=== PATIENT | female | born 2000 | race Caucasian/White ===

== ENCOUNTER → 2022-06-09 | Outpatient (CLI) | payer OTHER, SELFPAY ==
[2022-06-14 05:07] LABS: Chlamydia By Nucleic Acid AMP Negative (Negative)
[2022-06-14 14:06] LABS: Gonococcus By Nucleic Acid AMP Negative (Negative)
[2022-06-21 12:45] LABS: HPV Reflexed? NOT INDICATED
== END | disposition home or self-care (01) ==
PROVIDERS: PCP Family Medicine; Visit Provider Obstetrics & Gynecology
DX: Z34.90 Encounter for supervision of normal pregnancy, unspecified, unspecified trimester (principal)
CPT/HCPCS: 87086; 87491; 87591; 88175; G0145

== ENCOUNTER → 2022-07-10 | Outpatient (CLI) | payer OTHER, SELFPAY ==
[2022-07-10 12:57] LABS: Absolute Lymphocyte Count 2.44 X10^3/uL (0.83-4.51); Absolute Neutrophil Count 6.4 X10^3/uL (2.0-7.7); Basophil# 0.05 X10^3/uL; Basophil% 0.5 % (0-1); Hematocrit 35.8 % (37-47); Lymphocyte # 2.44 X10^3/ul (0.83-4.51); Lymphocyte % 25.3 % (19-41); Mean Corp Hgb Conc 33.5 g/dL (32-36); Mean Corpuscular Hgb 28.8 pg (27.0-32.0); Mean Corpuscular Volume 85.9 fL (81-99); Mean Platelet Vol. 9.6 fl (6.2-12.0); Monocyte# 0.66 X10^3/uL; Monocyte% 6.8 % (0-10); NRBC Flagged by Analyzer 0 % (0-5); Neutrophil # 6.35 X10^3/uL (2.7-7.7); Platelet Count 273 K/mm3 (150-450); RBC Distribution Width CV 12.8 % (11.6-14.6); RBC Distribution Width SD 39.5 fl (35.1-43.9); Red Blood Count 4.17 M/mm3 (4.2-5.4); White Blood Count 9.6 K/mm3 (4.4-11.0)
[2022-07-10 13:52] LABS: NATERA MAILED SPECIMEN
[2022-07-10 14:34] LABS: HIV - WCH Non-Reactive (Nonreactive); Hepatitis B Surface Antigen Non-Reactive (Nonreactive); Hepatitis C Antibody Non-Reactive (Nonreactive); Rubella IgG Reactive (Nonreactive); Syphilis Antibodies Non-reactive
== END | disposition home or self-care (01) ==
LOC: PAVLAB 12:38
PROVIDERS: PCP Family Medicine; Referring Provider Obstetrics & Gynecology; Visit Provider Obstetrics & Gynecology
DX: Z34.81 Encounter for supervision of other normal pregnancy, first trimester (principal)
CPT/HCPCS: 36415; 85025; 86703; 86762; 86780; 86803; 86850; 86900; 86901; 87340

== ENCOUNTER → 2022-10-18 | Outpatient (CLI) | payer OTHER, SELFPAY ==
[2022-10-18 14:45] LABS: Absolute Lymphocyte Count 1.83 X10^3/uL (0.83-4.51); Absolute Neutrophil Count 11.3 X10^3/uL (2.0-7.7); Basophil# 0.07 X10^3/uL; Basophil% 0.5 % (0-1); Eosinophil# 0.11 X10^3/uL; Eosinophils% 0.8 % (0-5); Hematocrit 35.2 % (37-47); Hemoglobin 11.5 g/dL (12.0-15.0); Lymphocyte # 1.83 X10^3/ul (0.83-4.51); Lymphocyte % 12.7 % (19-41); Mean Corp Hgb Conc 32.7 g/dL (32-36); Mean Corpuscular Hgb 28.8 pg (27.0-32.0); Mean Corpuscular Volume 88.2 fL (81-99); Mean Platelet Vol. 9.7 fl (6.2-12.0); Monocyte# 0.87 X10^3/uL; NRBC Flagged by Analyzer 0 % (0-5); Neutrophil # 11.26 X10^3/uL (2.7-7.7); Neutrophil % 77.9 % (47-70); Platelet Count 222 K/mm3 (150-450); RBC Distribution Width CV 12.3 % (11.6-14.6); RBC Distribution Width SD 39.5 fl (35.1-43.9); Red Blood Count 3.99 M/mm3 (4.2-5.4); White Blood Count 14.4 K/mm3 (4.4-11.0)
[2022-10-18 15:25] LABS: Glucose Challenge Gest 1H 50g 134 mg/dL (70-140)
[2022-10-18 15:46] LABS: HIV - WCH Non-Reactive (Nonreactive); Syphilis Antibodies Non-reactive
== END | disposition home or self-care (01) ==
LOC: PAVLAB 14:13
PROVIDERS: PCP Family Medicine; Referring Provider Obstetrics & Gynecology; Visit Provider Obstetrics & Gynecology
DX: Z13.1 Encounter for screening for diabetes mellitus (principal); Z3A.21 21 weeks gestation of pregnancy
CPT/HCPCS: 36415; 82950; 85025; 86703; 86780

== ENCOUNTER → 2022-12-14 | Outpatient (CLI) | payer OTHER, SELFPAY | END | disposition home or self-care (01) | LOC: LABSPEC 15:12 | PROVIDERS: PCP Family Medicine; Referring Provider Obstetrics & Gynecology; Visit Provider Obstetrics & Gynecology | DX: Z34.00 Encounter for supervision of normal first pregnancy, unspecified trimester (principal) | CPT/HCPCS: 87077; 87081; 87186 ==

== ENCOUNTER 2023-01-17 00:35 | Inpatient (IN) | payer OTHER, SELFPAY ==
[2023-01-17] VITALS (46 sets, daily range): BP systolic 88–126; BP diastolic 49–84; PULSE 67–153; TEMP 36.4–37.6; O2SAT 89–100; BMI 27.8
[2023-01-17 00:34] LABS: ROM Internal Control Test YES-OK TO RESULT pt. (Internal QC); ROM Patient Test POSITIVE (Negative)
[2023-01-17 00:35] LABS: Record Kit Lot#, ROM+ K1374
[2023-01-17] MEDS: Lactated Ringers 1,000 ML 50 ML IV (00:45)
[2023-01-17 01:06] LABS: Absolute Lymphocyte Count 2.69 X10^3/uL (0.83-4.51); Absolute Neutrophil Count 9.2 X10^3/uL (2.0-7.7); Basophil# 0.08 X10^3/uL; Basophil% 0.6 % (0-1); Eosinophil# 0.18 X10^3/uL; Eosinophils% 1.3 % (0-5); Hematocrit 32.1 % (37-47); Hemoglobin 10.1 g/dL (12.0-15.0); Lymphocyte # 2.69 X10^3/ul (0.83-4.51); Lymphocyte % 19.8 % (19-41); Mean Corp Hgb Conc 31.5 g/dL (32-36); Mean Corpuscular Hgb 25.9 pg (27.0-32.0); Mean Corpuscular Volume 82.3 fL (81-99); Mean Platelet Vol. 10.4 fl (6.2-12.0); Monocyte# 1.14 X10^3/uL; Monocyte% 8.4 % (0-10); NRBC Flagged by Analyzer 0 % (0-5); Neutrophil # 9.21 X10^3/uL (2.7-7.7); Neutrophil % 67.8 % (47-70); Platelet Count 260 K/mm3 (150-450); RBC Distribution Width CV 13.2 % (11.6-14.6); RBC Distribution Width SD 39.4 fl (35.1-43.9); White Blood Count 13.6 K/mm3 (4.4-11.0)
[2023-01-17 02:04] LABS: Syphilis Antibodies Non-reactive
--- NOTE | 2023-01-17 04:56 | HP.PCM.OB_ITS ---
HPI - General General Date of Admission: 01/17/23 Date of Service: 01/17/23 HPI Narrative MAYELA HUDDLESTON, is a 22 F 40.5 weeks who presents for SROM at 2300 on 01/16/23 for clear fluid. Maternal Data Information JENNYFER Calculator Estimated Delivery Date Method Current WG Current Estimate 01/12/23 LMP (Certain) 40w 5d Other Estimates 01/07/23 Ultrasound #1 41w 3d Final JENNYFER: 01/12/23 Final JENNYFER Source: US >20 weeks Gestational age: 40.5 weeks PFSH PFSH Medical History no medical history Home Medications multivitamin no.47-iron fum 27 mg-folate no.1 1 mg-dha 300 mg capsule (PNV-DHA) cap PO 06/01/22 [History Last Taken 01/01/23] Allergy/AdvReac Type Severity Reaction Status Date / Time No Known Allergies Allergy Verified 01/17/23 00:06 Family History Aunt Breast cancer, Onset Age: 40 Maternal Ovarian cancer, Onset Age: 50 Paternal Surgical History no surgical history Social History adopted: No household members: spouse housing: house current occupational status: employed 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 current occupational exposures/hazards: No pets and animals: No history of recent travel: Yes ([place]) out of state: Yes out of country: No sexually active: Yes Smoking Status: Never smoker alcohol intake: former details: socially a few times a year- not while substance use type: does not use well-balanced diet: daily or most days caffeine: No eating out: 1-3 times/week during the past year weight has: remained stable what type of physical activity do you participate in: other details: crossfit frequency: 3-4 times per week duration: 45-60 minutes/day delmi/temple: Faith seatbelt use: sometimes do you feel safe at home: Yes additional social history: Travis- [employer] in [employer] History 1 Elective abortions Hx Para 0 Spontaneous abortions Hx # Term Pregnancies Ectopic pregnancies Hx # Pregnancies Multiple births # of living children Visit Details Expected Delivery Route/Plan Labor Preferences- CB/BF classes: completed labor support person: Travis labor intervention preferences: [] pain management options preferred: epidural cut cord/dad catch: no : yes PP control planned: discussed discussed possible routes of delivery and associated risks: [] special requests: [] Plans Covid status: discussed Flu vaccine: discussed Tdap vaccine: Rhogam: NA LARC form signed: yes movement and labor precautions reviewed. Problem list reviewed and updated with the most current plan of care details and appropriate orders placed. Relevant counseling for the gestational age provided. Continue routine care and follow up unless otherwise noted in visit notes/problem list details OB Flowsheet Initial Weight: Not Recorded Date -?-?-?-?-?-?-?-?-?-?-?-?- EGA Weight BP Urine Prot -?-?-?-?-?-?-?-?-?-?-?-?- Glucose FHR FuHt Pres Dilation -?-?-?-?-?-?-?-?-?-?-?-?- Effaced St Visit Note 06/09/22 -?-?-?-?-?-?-?-?-?-?-?-?- 9w 0d 125 lb 8 oz 117/77 -?-?-?-?-?-?-?-?-?-?-?-?- 170 -?-?-?-?-?-?-?-?-?-?-?-?- JV- single live IUP measuring 9weeks 5 days. (within 7 days of LMP) 07/07/22 -?-?-?-?-?-?-?-?-?-?-?-?- 13w 0d 128 lb 113/63 Negative -?-?-?-?-?-?-?-?-?-?-?-?- Negative 165 -?-?-?-?-?-?-?-?-?-?-?-?- JV- no complaint s today. labs to be drawn today. 08/03/22 -?-?-?-?-?--?-?-?-?-?-?-?- 16w 6d 134 lb 116/64 Negative -?-?-?-?-?-?-?-?-?-?-?-?- Negative 153 -?-?-?-?-?-?-?-?-?-?-?-?- MH-no VB, crampi ng. Normal PN labs and genetics. 09/01/22 -?-?-?-?-?-?-?-?-?-?-?-?- 21w 0d 139 lb 6 oz 119/67 Nega tive -?-?-?-?-?-?-?-?-?-?-?-?- Negative 146 21 -?-?-?-?-?-?-?-?-?-?-?-?- LC- no vb/crampi ng. normal anatomy. 09/29/22 -?-?-?-?-?-?-?-?-?-?-?-?- 25w 0d 144 lb 6 oz 97/61 Nega tive -?-?-?-?-?-?-?-?-?-?-?-?- Negative 140 25 -?-?-?-?-?-?-?-?-?-?-?-?- Sm- no vb lof go od fm no regular ctx 10/18/22 -?-?-?-?-?-?-?-?-?-?-?-?- 27w 5d 148 lb 107/67 Negative -?-?-?-?-?-?-?-?-?-?-?-?- Negative 135 27 -?-?-?-?-?-?-?-?-?-?-?-?- JV- gct pending from today. no anemia. She is experiencing restless legs. 11/03/22 -?-?-?-?-?-?-?-?-?-?-?-?- 30w 0d 148 lb 6 oz 114/62 Nega tive -?-?-?-?-?-?-?-?-?-?-?-?- Negative 140 30 -?-?-?-?-?-?-?-?-?-?-?-?- JV- normal GCT. no complaints. TDAP today. 11/16/22 -?-?-?-?-?-?-?-?-?-?-?-?- 31w 6d 151 lb 2 oz 98/78 Nega tive -?-?-?-?-?-?-?-?-?-?-?-?- Negative 141 31 -?-?-?-?-?-?-?-?-?-?-?-?- MH-No VB, LOF. G ood FM. Denies concerns 11/30/22 -?-?-?-?-?-?-?-?-?-?-?-?- 33w 6d 156 lb 8 oz 123/66 Nega tive -?-?-?-?-?-?-?-?-?-?-?-?- Negative 140 34 Cephalic -?-?-?-?-?-?-?-?-?-?-?-?- Sm- no vb lof go od fm no regular ctx 12/14/22 -?-?-?-?-?-?-?-?-?-?-?-?- 35w 6d 158 lb 6 oz 116/67 Nega tive -?-?-?-?-?-?-?-?-?-?-?-?- Negative 144 35 Cephalic -?-?-?-?-?-?-?-?-?-?-?-?- JV- no lof, vagi nal bleeding, or dec fm. GBS collected. no complaints. 12/21/22 -?-?-?-?-?-?-?-?-?-?-?-?- 36w 6d 159 lb 2 oz 101/58 -?-?-?-?-?-?-?-?-?-?-?-?- 140 37 Cephalic 1 -?-?-?-?-?-?-?-?-?-?-?-?- 20 -3 SM- no vb lof good fm no regular ctx 12/28/22 -?-?-?-?-?-?-?-?-?-?-?-?- 37w 6d 161 lb 6 oz 110/65 Nega tive -?-?-?-?-?-?-?-?-?-?-?-?- Negative 130 39 Cephalic 1 -?-?-?-?-?-?-?-?-?-?-?-?- 50 -2 JV- no lof , vaginal bleeding, or dec fm. labor precautions discussed. 01/05/23 -?-?-?-?-?-?-?-?-?-?-?-?- 39w 0d 164 lb 8 oz 112/67 -?-?-?-?-?-?-?-?-?-?-?-?- 130 39 Cephalic 1.5 -?-?-?-?-?-?--?-?-?-?-?-?- 60 -2 SM- no vb of good fm no regular ctx 01/11/23 -?-?-?-?-?-?-?-?-?-?-?-?- 39w 6d 166 lb 4 oz 110/67 Nega tive -?-?-?-?-?-?-?-?-?-?-?-?- Negative 145 39 Cephalic 2 -?-?-?-?-?-?-?-?-?-?-?-?- 70 -2 JV- IOL se t up for next week. no complaints today. NST FHR Rate Baby A Baseline: 135 Variability:: Moderate Accelerations:: 15 x 15 Decelerations:: None NST Reactive:: Yes FHR Category:: Category I Uterine Activity:: 4-5 minutes ROS Constitutional Constitutional: Denies change in weight, fatigue, fever(s), headache(s), poor appetite or weakness Eyes Eyes: Denies blurry vision, change in vision, floaters, seeing flashes or spots in vision ENT HEENT: Denies dizziness, headache(s), loss taste/smell or sore throat Cardiovascular Cardiovascular: Denies chest pain, dizziness, dyspnea, irregular heart rhythm, lightheadedness, palpitations or rapid heart rate Respiratory/Chest Respiratory/Chest: Denies change in mental status, chest tightness, cough, dyspnea or breast pain Gastrointestinal Gastrointestinal: Denies anorexia, chewing difficulty, constipation, diarrhea or weight changes Genitourinary Genitourinary: Denies difficulty urinating, dysuria, flank pain, genital pain, urinary frequency or urinary urgency Musculoskeletal Musculoskeletal: Denies back pain, difficulty walking, extremity pain, joint pain, muscle cramps or muscle weakness Integumentary Integumentary: Denies lesions or unusual bruising Neurologic Neurologic: Denies abnormal movements, abnormal speech, dizziness, numbness, seizure-like activity, syncope or weakness Psychiatric Psychiatric: Denies behavioral changes, change in appetite, confusion, depression, homicidal ideation, suicidal ideation or suicidal thoughts Endocrine Endocrinology: Denies excessive sweating, polydipsia or polyuria Hematologic/Lymphatic Hematologic/Lymphatic: Denies anemia Allergic/Immunologic Allergic/Immunologic: Denies itchy eyes, lip swelling, throat swelling, tongue swelling or wheezing Vital Signs Vital Signs Vital Signs: 01/17/23 00:11 01/17/23 00:11 01/17/23 00:11 Temperature Temperature Source Temporal Pulse Rate 95 Blood Pressure 121/72 H BP Systolic 121 BP Diastolic 72 Pulse Ox 01/17/23 00:11 01/17/23 00:11 01/17/23 01:55 Temperature 98.3 F Temperature Source Temporal Pulse Rate Blood Pressure BP Systolic BP Diastolic Pulse Ox 97 01/17/23 01:55 01/17/23 01:55 01/17/23 01:55 Temperature 98.1 F Temperature Source Pulse Rate Blood Pressure 126/67 H BP Systolic 126 BP Diastolic 67 Pulse Ox 98 01/17/23 03:15 01/17/23 03:15 01/17/23 03:15 Temperature Temperature Source Temporal Pulse Rate 90 Blood Pressure 111/66 BP Systolic 111 BP Diastolic 66 Pulse Ox 01/17/23 03:15 01/17/23 04:12 01/17/23 04:12 Temperature 97.6 F L Temperature Source Pulse Rate 82 Blood Pressure 109/72 BP Systolic 109 BP Diastolic 72 Pulse Ox 01/17/23 04:12 01/17/23 04:12 Temperature 97.6 F L Temperature Source Temporal Pulse Rate Blood Pressure BP Systolic BP Diastolic Pulse Ox Weight Weight: 162 lb 0.636 oz Body Mass Index (BMI) 27.8 Physical Exam Const alert, oriented x3 and no apparent distress General Appearance: cooperative Orientation / Consciousness: awake HEENT normocephalic Neck full ROM Lymph Lymphatic: no lymphadenopathy noted Chest inspection of chest normal Resp normal respiratory effort and normal air movement Effort and Inspection: able to speak in complete sentences and symmetric chest movement GI soft to palpation and non-tender Inspection: gravid Palpation: soft; Negative for tender external exam normal Manual OB Exam: dilated 4, effaced 60 and station -2 Back/Spine normal to inspection Extremity normal to inspection and full ROM Skin no rashes or lesions noted Psych mental status grossly normal Appearance: grossly normal Speech: normal speech Labs Labs Labs: Blood Type O POSITIVE Antibody Screen NEGATIVE Hct 32.1 % (37-47) L Hgb 10.1 g/dL (12.0-15.0) L Syphilis Total Ab Non-reactive Rubella IgG Antibody Reactive (Nonreactive) Hep Bs Antigen Non-Reactive (Nonreactive) Chlamydia DNA (SARAH) Negative (Negative) Neisseria gonorrhoeae DNA (SARAH) Negative (Negative) HIV 1&2 Antibody Non-Reactive (Nonreactive) Glucose 1 Hr 50 gm 134 mg/dL (70-140) Assessment & Plan (1) SROM (spontaneous rupture of membranes): (2) Positive GBS test: COMMENT: PCN in labor (3) Supervision of normal first : COMMENT: PRR JENNYFER 01/12/23 boy Emiliano Travis (4) : QUALIFIERS: Weeks of gestation: 39 weeks Qualified Code(s): Z3A.39 - 39 weeks gestation of COMMENT: anatomy-nl, NIPT low risk, Neg Carrier testing afp delined. PLAN: Plan Patient presents IAL, plan expectant management for , pitocin/AROM PRN if needed. Pain management: plans epidural. GBS positive plan IV PCN. Management of any complications: none I have reviewed the [facility] and made any clinically relevant updates. Charges/Coding Multi Select Codes Urinary/Genital Urinary/Genital CPT Codes: No Charge
[2023-01-17] MEDS: Penicillin G 3,000,000 Units 50 ML 100 UNITS IV (05:21)
[2023-01-17] MEDS: Oxytocin 15 Units/NS 250ml 15 UNITS/250 ML IV.SOLN 2 UNITS IV (07:45)
--- NOTE | 2023-01-17 08:06 | PCM.PN.BLA ---
Progress Note pt is sitting up in bed without complaint. nurses report that she has a forebag present and she consents to rupture. current tracing: FHT: Moderate variability reactive no decelerations category I tracing [place]: irregular Contractions cx: 3/70/-2, forebag of water ruptured with clear fluid return A/P: srom gbs pos- has received pcn starting pitocin now- pt requesting epidural soon.
[2023-01-17] MEDS: Penicillin G 3,000,000 Units 50 ML 50 UNITS IV ×3 (09:29→17:13)
[2023-01-17] MEDS: LACTATED RINGERS 500 ML 999 ML IV ×2 (12:15→16:41)
[2023-01-17] MEDS: fentaNYL-bupivacaine (epidural) 100 ML BAG EPIDURAL ×2 (13:25→17:36)
[2023-01-17] MEDS: Lactated Ringers 1,000 ML 200 ML IV (15:56)
[2023-01-17] MEDS: Ondansetron 4 MG/2 ML Vial IV (18:28)
--- NOTE | 2023-01-17 21:33 | EX.PCM.OBRPT ---
Assessment & Plan (1) SROM (spontaneous rupture of membranes): (2) Positive GBS test: COMMENT: PCN in labor (3) Supervision of normal first : COMMENT: PRR JENNYFER 01/12/23 boy Emiliano Travis (4) : QUALIFIERS: Weeks of gestation: 39 weeks Qualified Code(s): Z3A.39 - 39 weeks gestation of COMMENT: anatomy-nl, NIPT low risk, Neg Carrier testing afp delined. Maternal Data Information JENNYFER Calculator Estimated Delivery Date Method Current WG Current Estimate 01/12/23 LMP (Certain) 40w 5d Other Estimates 01/07/23 Ultrasound #1 41w 3d Final JENNYFER: 01/17/23 Final JENNYFER Source: LMP Gestational age: 40 weeks 5 days Vaginal Delivery Maternal Presentation Maternal Presentation: Spontaneous Rupture of Membranes Type of Induction: Pitocin Operative Information Date of Procedure: 01/17/23 Pre-Operative Diagnosis: 22 y/o @ 40 weeks 5 days, SROM Post-Operative Diagnosis: 22 y/o @ 40 weeks 5 days, SROM Type of Anesthesia: Epidural Estimated Blood Loss: 300cc Findings Description of Procedure: Patient began pushing and delivered the head in the CRISTINA presentation. The head was delivered atraumatically. The anterior and posterior shoulders delivered without complication followed by the rest of the and the infant was placed on the maternal abdomen. Delayed cord clamping was employed for approximately 60 seconds. Cord was clamped and cut and gentle traction was applied to the cord and the placenta delivered spontaneously immediately following it was noted to be intact with three-vessel cord. The perineum and vagina were inspected and noted to have a 2nd degree perineal laceration. The laceration was repaired using a 3-0 vicryl. EBL was 300cc. Patient and tolerated delivery well. baby boy Emiliano Presentation: CRISTINA Amniotic Membrane Rupture Type: Spontaneous Amniotic Fluid Description: Clear Placenta Disposition: [facility] Cord Vessel Description: 3 Vessels Cord Entanglement: None Infant A Gender: Male (1 minute): 8 (5 minute): 9 Delayed Cord Clamping: Yes Post Vaginal Delivery Medications Given After Delivery: IV Pitocin Episiotomy Description: None Laceration: 2nd degree Complication Complications: None Multi Select Codes Urinary/Genital Urinary/Genital CPT Codes: 20352 Vaginal Delivery [facility]
--- NOTE | 2023-01-17 21:36 | DCINST_ITS ---
Discharge Instructions Diet Discharge Diet: No restrictions Activity Discharge Activity: Return to Normal Activity, May Not Drive (while taking narcotic pain medications.) and May Shower May resume sexual activity in: 4-6 weeks Dressing / Incision Call your doctor if your incision/area has: Continuous Slow Oozing, Sudden Increased Bleeding, Increased Pain/ Swelling, Increased Redness and Foul Smelling Discharge Follow Up Care Please Follow Up With: Colette Berger, DO When: Call [phone] to make an appointment with your doctor in 6 weeks. If you had elevated blood pressure or 4th degree laceration, you will need to be seen in 2 weeks. Test Results: Test results from this visit will be discussed in further detail at your follow- up appointment, if applicable. Discharge Plan Admission Admit Date/Time: 01/17/23 00:35 Attending Provider: Colette Berger Primary Care Provider: Kaylee Iyer Discharge Orders/Prescriptions Prescriptions: No Action PNV-DHA 27 mg iron-1 mg -300 mg capsule PO Referrals / Follow Up: Kaylee Iyer MD [Primary Care Provider] -
[2023-01-17] MEDS: Oxytocin 15 Units/NS 250ml 15 UNITS/250 ML IV.SOLN 83 UNITS IV (21:50)
[2023-01-17] MEDS: Naproxen 500 MG Tablet PO (23:24)
--- NOTE | 2023-01-18 00:29 | NURSING ---
This RN took over pt care from Suzi CARTER
[2023-01-18] MEDS: 0.9% Saline Lock 10 ML Syringe IV (00:56)
[2023-01-18 03:35] VITALS: BP 121/49; PULSE 61; RESP 16; TEMP 36.4
--- NOTE | 2023-01-18 07:51 | PCM.PN.OB ---
Subjective Subjective Patient doing well without complaints. Tolerating PO. Ambulating and voiding without difficulty. Feeding well. Denies chest pain, shortness of breath, calf pain/swelling, fevers, chills, lightheadedness. Objective Data Objective Data Vital Signs: Vital Signs Temp Pulse Resp BP Pulse Ox 97.6 F L 61 16 121/49 H 100 01/18/23 03:35 01/18/23 03:35 01/18/23 03:35 01/18/23 03:35 01/17/23 17:18 Weight: 162 lb 0.636 oz Body Mass Index (BMI) 27.8 Intake & Output: Intake and Output for Last 24 Hours 01/16/23 01/17/23 01/18/23 23:59 23:59 23:59 Intake Total 3555.00 / 3555.00 250 / 250 Output Total 302 / 302 300 / 300 Balance 3253.00 / 3253.00 -50 / -50 Lab / Micro Data 01/17/23 00:04 Physical Exam Const alert and oriented x3 HEENT normocephalic Eyes PERRL Neck full ROM Resp normal respiratory effort GI soft to palpation GI Narrative: FF below U Assessment & Plan (1) Spontaneous vaginal delivery: COMMENT: 01/17/23 Melvin FUENTES PLAN: Plan s/p PPD # 1 1. routine post delivery care 2. breast feeding- support given 3. rh positive 4. rubella immune
[2023-01-18 08:00] VITALS: BP 98/62; PULSE 71; RESP 16; TEMP 36.6
[2023-01-18] MEDS: Naproxen 500 MG Tablet PO (10:45)
[2023-01-18 12:00] VITALS: BP 95/56; PULSE 90; TEMP 36.8
[2023-01-18] MEDS: Benzocaine/Lanolin/Aloe Vera 1 SPRAY EACH TOPICAL (14:50)
[2023-01-18] MEDS: Senna/Docusate Sodium 1 Tablet PO (15:28)
[2023-01-18 18:00] VITALS: BP 104/66; PULSE 83; RESP 16; TEMP 36.6
[2023-01-18 20:57] VITALS: BP 102/49; PULSE 75; RESP 16
[2023-01-19 01:45] VITALS: BP 103/63; PULSE 87; RESP 18; TEMP 36.7
[2023-01-19 08:34] VITALS: BP 105/70; PULSE 74; RESP 16; TEMP 36.4; O2SAT 98
[2023-01-19] MEDS: Senna/Docusate Sodium 1 Tablet PO (08:46)
--- NOTE | 2023-01-19 09:24 | PCM.PN.OB ---
Subjective Subjective Patient doing well without complaints. Tolerating PO. Ambulating and voiding without difficulty. Feeding well. Denies chest pain, shortness of breath, calf pain/swelling, fevers, chills, lightheadedness. Objective Data Objective Data Vital Signs: Vital Signs Temp Pulse Resp BP Pulse Ox O2 Del Method 97.6 F L 74 16 105/70 98 Room Air 01/19/23 08:34 01/19/23 08:34 01/19/23 08:34 01/19/23 08:34 01/19/23 08:34 01/19/23 08:34 Oxygen Delivery Method Room Air Weight: 162 lb 0.636 oz Body Mass Index (BMI) 27.8 Intake & Output: Intake and Output for Last 24 Hours 01/17/23 01/18/23 01/19/23 23:59 23:59 23:59 Intake Total 3555.00 / 3555.00 250 / 250 Output Total 302 / 302 500 / 500 Balance 3253.00 / 3253.00 -250 / -250 Lab / Micro Data 01/17/23 00:04 Physical Exam Const alert and no apparent distress Chest inspection of chest normal Nipple/Areola: nipples/areola normal Resp normal respiratory effort, normal air movement, no retractions and no use of accessory muscles Cardio regular rate GI normal to inspection, nondistended, normoactive bowel sounds GI Narrative: fundus firn, 1 below u, no clots. normal lochia Extremity normal to inspection, no calf tenderness and no pedal edema Psych mental status grossly normal Assessment & Plan (1) Spontaneous vaginal delivery: COMMENT: 01/17/23 Melvin FUENTES
[2023-01-19 14:10] VITALS: BP 119/73; PULSE 83; RESP 16; TEMP 36.2
== END 2023-01-19 14:36 | disposition home or self-care (01) | DRG 807 ==
LOC: WPOUT 00:36 → WP 00:36
PROVIDERS: Admitting Provider Advanced Practice Midwife; PCP Family Medicine; Referring Provider Advanced Practice Midwife; Visit Provider Obstetrics & Gynecology
DX: O70.1 Second degree perineal laceration during delivery (principal); Z37.0 Single live birth; B95.1 Streptococcus, group B, as the cause of diseases classified elsewhere; O99.824 Streptococcus B carrier state complicating childbirth; Z3A.40 40 weeks gestation of pregnancy
CPT/HCPCS: 59025; 59050; 84112; 85025; 86780; 86850; 86900; 86901; 99221; J7120; A4216; G0378; J2405

== ENCOUNTER 2023-03-10 08:35 | Outpatient (CLI) | payer OTHER, SELFPAY | END 2023-03-10 09:06 | disposition home or self-care (01) | LOC: WPOUT 08:42 → WP 08:43 | PROVIDERS: PCP Family Medicine; Referring Provider Nurse Practitioner Women's Health; Visit Provider Nurse Practitioner Women's Health | DX: O91.22 Nonpurulent mastitis associated with the puerperium (principal) | CPT/HCPCS: 96158 ==

== ENCOUNTER → 2024-03-17 | Outpatient (CLI) | payer OTHER, SELFPAY ==
[2024-03-17 12:25] LABS: Absolute Lymphocyte Count 2.32 X10^3/uL (0.83-4.51); Absolute Neutrophil Count 6.6 X10^3/uL (2.0-7.7); Basophil# 0.04 X10^3/uL; Basophil% 0.4 % (0-1); Eosinophil# 0.08 X10^3/uL; Eosinophils% 0.8 % (0-5); Hematocrit 38.3 % (37-47); Hemoglobin 12.5 g/dL (12.0-15.0); Lymphocyte # 2.32 X10^3/ul (0.83-4.51); Mean Corp Hgb Conc 32.6 g/dL (32-36); Mean Corpuscular Hgb 27.8 pg (27.0-32.0); Mean Corpuscular Volume 85.1 fL (81-99); Mean Platelet Vol. 10.1 fl (6.2-12.0); Monocyte% 6.2 % (0-10); NRBC Flagged by Analyzer 0 % (0-5); Neutrophil # 6.56 X10^3/uL (2.7-7.7); Neutrophil % 67.9 % (47-70); Platelet Count 288 K/mm3 (150-450); RBC Distribution Width CV 12.9 % (11.6-14.6); RBC Distribution Width SD 39.4 fl (35.1-43.9); White Blood Count 9.7 K/mm3 (4.4-11.0)
[2024-03-17 13:36] LABS: HIV - WCH Non-Reactive (Nonreactive); Hepatitis B Surface Antigen Non-Reactive (Nonreactive); Hepatitis C Antibody Non-Reactive (Nonreactive); Rubella IgG Reactive (Nonreactive); Syphilis Antibodies Non-reactive
[2024-03-19 06:09] LABS: Chlamydia By Nucleic Acid AMP Negative (Negative); Gonococcus By Nucleic Acid AMP Negative (Negative)
== END | disposition home or self-care (01) ==
PROVIDERS: PCP Family Medicine; Referring Provider Obstetrics & Gynecology; Visit Provider Obstetrics & Gynecology
DX: Z34.90 Encounter for supervision of normal pregnancy, unspecified, unspecified trimester (principal)
CPT/HCPCS: 36415; 85025; 86703; 86762; 86780; 86803; 86850; 86900; 86901; 87077; 87086; 87088; 87340; 87491; 87591

== ENCOUNTER → 2024-07-07 | Outpatient (CLI) | payer BC, SELFPAY ==
[2024-07-07 12:29] LABS: Absolute Lymphocyte Count 2.09 X10^3/uL (0.83-4.51); Absolute Neutrophil Count 9.2 X10^3/uL (2.0-7.7); Basophil# 0.06 X10^3/uL; Basophil% 0.5 % (0-1); Eosinophil# 0.09 X10^3/uL; Eosinophils% 0.7 % (0-5); Hematocrit 35.6 % (37-47); Hemoglobin 11.3 g/dL (12.0-15.0); Lymphocyte # 2.09 X10^3/ul (0.83-4.51); Lymphocyte % 16.7 % (19-41); Mean Corp Hgb Conc 31.7 g/dL (32-36); Mean Corpuscular Hgb 28.3 pg (27.0-32.0); Mean Corpuscular Volume 89.2 fL (81-99); Monocyte# 0.64 X10^3/uL; Monocyte% 5.1 % (0-10); NRBC Flagged by Analyzer 0 % (0-5); Neutrophil # 9.16 X10^3/uL (2.7-7.7); Neutrophil % 73.2 % (47-70); Platelet Count 263 K/mm3 (150-450); RBC Distribution Width CV 12.8 % (11.6-14.6); RBC Distribution Width SD 41.5 fl (35.1-43.9); Red Blood Count 3.99 M/mm3 (4.2-5.4); White Blood Count 12.5 K/mm3 (4.4-11.0)
[2024-07-07 13:18] LABS: Glucose Challenge Gest 1H 50g 80 mg/dL (70-140)
[2024-07-07 15:44] LABS: Syphilis Antibodies Non-reactive
[2024-07-09 10:36] LABS: HIV - WCH Non-Reactive (Nonreactive)
== END | disposition home or self-care (01) ==
LOC: BWCLAB 08:59
PROVIDERS: PCP Family Medicine; Referring Provider Advanced Practice Midwife; Visit Provider Advanced Practice Midwife
DX: Z34.90 Encounter for supervision of normal pregnancy, unspecified, unspecified trimester (principal)

== ENCOUNTER 2024-10-10 02:54 | Inpatient (IN) | payer BC, SELFPAY ==
[2024-10-10] VITALS (70 sets, daily range): BP systolic 88–118; BP diastolic 50–71; PULSE 81–113; RESP 16–18; TEMP 36.1–37.4; O2SAT 96–100; BMI 29.9
[2024-10-10] MEDS: Penicillin G Pot 5,000,000 UNITS in 0.9% Normal Saline (100mL MB+) 100 ML 100 UNITS IV (03:40)
[2024-10-10 03:43] LABS: Absolute Lymphocyte Count 2.38 X10^3/uL (0.83-4.51); Absolute Neutrophil Count 10.9 X10^3/uL (2.0-7.7); Basophil# 0.08 X10^3/uL; Basophil% 0.5 % (0-1); Eosinophil# 0.18 X10^3/uL; Eosinophils% 1.2 % (0-5); Hematocrit 37.3 % (37-47); Hemoglobin 12.7 g/dL (12.0-15.0); Lymphocyte # 2.38 X10^3/ul (0.83-4.51); Lymphocyte % 15.6 % (19-41); Mean Corpuscular Hgb 28.9 pg (27.0-32.0); Mean Platelet Vol. 10.1 fl (6.2-12.0); Monocyte% 9.8 % (0-10); NRBC Flagged by Analyzer 0 % (0-5); Neutrophil % 71.3 % (47-70); Platelet Count 188 K/mm3 (150-450); RBC Distribution Width CV 13.9 % (11.6-14.6); RBC Distribution Width SD 43.1 fl (35.1-43.9); Red Blood Count 4.39 M/mm3 (4.2-5.4); White Blood Count 15.3 K/mm3 (4.4-11.0)
[2024-10-10 04:11] LABS: Syphilis Antibodies Nonreactive (Nonreactive)
[2024-10-10] MEDS: Lactated Ringers 1,000 ML 50 ML IV (04:24)
[2024-10-10] MEDS: Lactated Ringers 1,000 ML 200 ML IV (06:07)
[2024-10-10] MEDS: fentaNYL-bupivacaine (epidural) 100 ML BAG EPIDURAL (06:10)
[2024-10-10] MEDS: LACTATED RINGERS 500 ML 999 ML IV (06:10)
[2024-10-10] MEDS: Oxytocin 10 UNITS/ML Vial IM (07:46)
[2024-10-10] MEDS: Methylergonovine 0.2 MG/ML Ampul IM (07:51)
--- NOTE | 2024-10-10 08:00 | HP.PCM.OB_ITS ---
HPI - General General Date of Admission: 10/10/24 Date of Service: 10/10/24 HPI Narrative MAYELA HUDDLESTON, is a 24 F 40.6 weeks who presents to unit in active labor. Maternal Data Information JENNYFER Calculator Estimated Delivery Date Method Current WG Current Estimate 10/04/24 LMP (Certain) 40w 6d Final JENNYFER: 10/04/24 Final JENNYFER Source: US >20 weeks Gestational age: 40.6 PFSH PFSH Home Medications ?Medication ?Instructions ?Recorded ?Last Taken ?Type multivitamin no.47-iron fum 27 1 cap PO DAILY 06/01/22 01/01/23 History mg-folate no.1 1 mg-dha 300 mg capsule (PNV-DHA) Allergy/AdvReac Type Severity Reaction Status Date / Time No Known Allergies Allergy Verified 10/10/24 00:21 Family History Aunt Breast cancer, Onset Age: 40 Maternal Ovarian cancer, Onset Age: 50 Paternal Social History adopted: No household members: spouse housing: house number of children: 1 current occupational status: employed current occupation: [employer] current occupational exposures/hazards: No pets and animals: No history of recent travel: Yes (- December) out of state: Yes out of country: No sexually active: Yes Smoking Status: Never smoker alcohol intake: former details: socially a few times a year- not while substance use type: does not use well-balanced diet: daily or most days caffeine: Yes Type: coffee Number of servings: 1 eating out: 1-3 times/week during the past year weight has: other details: this past year. Back to pre weight. 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 Date Name GA/Weeks Outcome Route Bth Weight Gen Labor Lgth Anesthesia Del Locatn Provider FOB 01/17/23 Emiliano 40 live - full term 8.5# Male epid ural [facility] Colette Gonzalez Delivery Date: 01/17/23 Last Updated by: Lisa Maya see problem list for complications. Visit Details Expected Delivery Route/Plan Labor Preferences- CB/BF classes: [] labor support person: [] labor intervention preferences: [] pain management options preferred: epidural : [] PP control planned: [] discussed possible routes of delivery and associated risks: [] special requests: [] Plans Covid status: [] Flu vaccine: given Tdap vaccine: given Rhogam: [] LARC form signed: declined movement and labor precautions reviewed. Problem list reviewed and updated with the most current plan of care details and appropriate orders placed. Relevant counseling for the gestational age provided. Continue routine care and follow up unless otherwise noted in visit notes/problem list details OB Flowsheet Initial Weight: Not Recorded Date -?-?-?-?-?-?-?-?-?-?-?-?- EGA Weight BP Urine Prot -?-?-?-?-?-?-?-?-?-?-?-?- Glucose FHR FuHt Pres Dilation -?-?-?-?-?-?-?-?-?-?-?-?- Effaced St Visit Note 03/17/24 -?-?-?-?-?-?-?-?-?-?-?--?- 11w 2d 136 lb 4 oz 108/68 -?-?-?-?-?-?-?-?-?-?-?-?- 163 -?-?-?-?-?-?-?-?-?-?-?-?- JV- CRL measures 4.18 cm. This is consistent with JENNYFER per LMP. Patient desires NIPT with gender. 04/14/24 -?-?-?-?-?-?-?-?-?-?-?-?- 15w 2d 140 lb 110/68 -?-?-?-?-?-?-?-?-?-?-?-?- 150 -?-?-?-?-?-?-?-?-?-?-?-?- SM- no vb crampi ng SM- no vb cramping flu vacci ne given 05/12/24 -?-?-?-?-?-?-?-?-?-?-?-?- 19w 2d 141 lb 92/57 Negative -?-?-?-?-?-?-?-?-?-?-?-?- Negative 145 -?-?-?-?-?-?-?-?-?-?-?-?- KW- no vb/lof/ct x. possible fm. US next week. 06/09/24 -?-?-?-?-?-?-?-?-?-?-?-?- 23w 2d 149 lb 101/67 Negative -?-?-?-?-?-?-?-?-?-?-?-?- Negative 145 23 -?-?-?-?-?-?-?-?-?-?-?-?- KW- no vb/crampi ng. good fm. 28 week labs discussed 07/07/24 -?-?-?-?-?-?-?-?-?-?-?-?- 27w 2d 155 lb 112/69 Negative -?-?-?-?-?-?-?-?-?-?-?-?- Negative 145 27 -?-?-?-?-?-?-?-?-?-?-?-?- KW- no vb/lof/ct x. good fm. LAR and labs today. 08/01/24 -?-?-?-?-?-?-?-?-?-?-?-?- 30w 6d 160 lb 4 oz 109/69 Nega tive -?-?-?-?-?-?-?-?-?-?-?-?- Negative 145 32 -?-?-?-?-?-?-?-?-?-?-?-?- LC- no vb/ctx/lo f.good fm. no concerns today. obtained tdap 08/14/24 -?-?-?-?-?-?-?-?-?-?-?-?- 32w 5d 161 lb 4 oz 101/65 Nega tive -?-?-?-?-?-?-?-?-?-?-?-?- Negative 135 32 -?-?-?-?-?-?-?-?-?-?-?-?- SM- no vb lof go od fm no reuglar ctx SM- no vb lof good fm no reu glar ctx discussed measuring consistent now but the same as loast time, was breech last time. if still the same next visit recommend growth us but if grows then doesn't need. 08/28/24 -?-?-?-?-?-?-?-?-?-?-?-?- 34w 5d 167 lb 2 oz 106/64 Nega tive -?-?-?-?-?-?-?-?-?-?-?-?- Negative 140 35.5 Cephalic -?-?-?-?-?-?-?-?-?-?-?-?- JV- no lof, vagi nal bleeding, or dec fm. JV- no lof, vaginal bleeding , or dec fm. cephalic on ultrasound today (bedside) 09/08/24 -?-?-?-?-?-?-?-?-?-?-?-?- 36w 2d 167 lb 6 oz 104/59 Nega tive -?-?-?-?-?-?-?-?-?-?-?-?- Negative 150 36 Cephalic -?-?-?-?-?-?-?-?-?-?-?-?- KW- no vb/lof/ct x. good fm. GBS pos in urine declines SVE today 09/15/24 -?-?-?-?-?-?-?-?-?-?-?-?- 37w 2d 169 lb 4 oz 105/68 Nega tive -?-?-?-?-?-?-?-?-?-?-?-?- Negative 147 37 Cephalic 1 -?-?-?-?-?-?-?-?-?-?-?-?- 0 -3 JV- no com plaints. labor precautions discussed. 09/22/24 -?-?-?-?-?-?-?-?-?-?-?-?- 38w 2d 169 lb 4 oz 100/62 Nega tive -?-?-?-?-?-?-?-?-?-?-?-?- Negative 150 38 Cephalic 1 -?-?-?-?-?-?-?-?-?-?-?-?- 50 -2 KW- no vb/ lof/ctx. good fm. noticing more BH ctx. labor precautions 09/29/24 -?-?-?-?-?-?-?-?-?-?-?-?- 39w 2d 173 lb 110/64 -?-?-?-?-?-?-?-?-?-?-?-?- 152 38 Cephalic 2 -?-?-?-?-?-?-?-?-?-?-?-?- 80 -2 JV- no lof , vaginal bleeding, or dec fm. 10/06/24 -?-?-?-?-?-?-?-?-?-?-?-?- 40w 2d 176 lb 8 oz 109/65 Nega tive -?-?-?-?-?-?-?-?-?-?-?-?- Negative 148 39 Cephalic 2 -?-?-?-?-?-?-?-?-?-?-?-?- 60 -2 KW- no vb/ lof/reg ctx. good fm. 41 week IOL set up. membrane sweep today NST FHR Rate Baby A Baseline: 140 Variability:: Minimal Accelerations:: 15 x 15 Decelerations:: Variable NST Reactive:: Yes FHR Category:: Category I Uterine Activity:: 2-3 ROS Constitutional Constitutional: Denies change in weight, fatigue, fever(s), headache(s), poor appetite or weakness Eyes Eyes: Denies blurry vision, change in vision, floaters, seeing flashes or spots in vision ENT HEENT: Denies dizziness, headache(s), loss taste/smell or sore throat Cardiovascular Cardiovascular: Denies chest pain, dizziness, dyspnea, irregular heart rhythm, lightheadedness, palpitations or rapid heart rate Respiratory/Chest Respiratory/Chest: Denies change in mental status, chest tightness, cough, dyspnea or breast pain Gastrointestinal Gastrointestinal: Denies anorexia, chewing difficulty, constipation, diarrhea or weight changes Genitourinary Genitourinary: Denies difficulty urinating, dysuria, flank pain, genital pain, urinary frequency or urinary urgency Musculoskeletal Musculoskeletal: Denies back pain, difficulty walking, extremity pain, joint pain, muscle cramps or muscle weakness Integumentary Integumentary: Denies lesions or unusual bruising Neurologic Neurologic: Denies abnormal movements, abnormal speech, dizziness, numbness, seizure-like activity, syncope or weakness Psychiatric Psychiatric: Denies behavioral changes, change in appetite, confusion, depression, homicidal ideation, suicidal ideation or suicidal thoughts Endocrine Endocrinology: Denies excessive sweating, polydipsia or polyuria Hematologic/Lymphatic Hematologic/Lymphatic: Denies anemia Allergic/Immunologic Allergic/Immunologic: Denies itchy eyes, lip swelling, throat swelling, tongue swelling or wheezing Vital Signs Vital Signs Vital Signs: 10/10/24 00:16 10/10/24 00:16 10/10/24 00:16 Temperature Temperature Source Temporal Pulse Rate 93 Respiratory Rate Blood Pressure 115/68 BP Systolic 115 BP Diastolic 68 Pulse Ox 10/10/24 00:16 10/10/24 00:16 10/10/24 00:18 Temperature 98.1 F Temperature Source Pulse Rate 100 Respiratory Rate 16 Blood Pressure BP Systolic BP Diastolic Pulse Ox 10/10/24 00:18 10/10/24 03:15 10/10/24 03:15 Temperature Temperature Source Pulse Rate 98 Respiratory Rate Blood Pressure 111/66 BP Systolic 111 BP Diastolic 66 Pulse Ox 97 10/10/24 03:15 10/10/24 03:15 10/10/24 03:15 Temperature 98.1 F Temperature Source Temporal Pulse Rate Respiratory Rate 16 Blood Pressure BP Systolic BP Diastolic Pulse Ox 10/10/24 03:16 10/10/24 03:16 10/10/24 05:12 Temperature Temperature Source Pulse Rate 96 Respiratory Rate Blood Pressure 113/70 BP Systolic 113 BP Diastolic 70 Pulse Ox 99 10/10/24 05:12 10/10/24 05:12 10/10/24 05:12 Temperature Temperature Source Temporal Pulse Rate 84 Respiratory Rate 16 Blood Pressure BP Systolic BP Diastolic Pulse Ox 10/10/24 05:12 10/10/24 05:55 10/10/24 05:55 Temperature 97.0 F L Temperature Source Pulse Rate 89 Respiratory Rate Blood Pressure BP Systolic BP Diastolic Pulse Ox 100 10/10/24 05:59 10/10/24 05:59 10/10/24 05:59 Temperature Temperature Source Pulse Rate 97 Respiratory Rate 16 Blood Pressure 113/71 BP Systolic 113 BP Diastolic 71 Pulse Ox 10/10/24 06:00 10/10/24 06:00 10/10/24 06:04 Temperature Temperature Source Pulse Rate 101 H Respiratory Rate Blood Pressure 112/71 BP Systolic 112 BP Diastolic 71 Pulse Ox 100 10/10/24 06:04 10/10/24 06:04 10/10/24 06:05 Temperature Temperature Source Pulse Rate 96 103 H Respiratory Rate 16 Blood Pressure BP Systolic BP Diastolic Pulse Ox 10/10/24 06:05 10/10/24 06:09 10/10/24 06:09 Temperature Temperature Source Pulse Rate 107 H Respiratory Rate Blood Pressure 101/55 L BP Systolic 101 BP Diastolic 55 Pulse Ox 100 10/10/24 06:09 10/10/24 06:10 10/10/24 06:10 Temperature Temperature Source Pulse Rate 110 H Respiratory Rate 16 Blood Pressure BP Systolic BP Diastolic Pulse Ox 100 10/10/24 06:14 10/10/24 06:14 10/10/24 06:14 Temperature Temperature Source Pulse Rate 108 H Respiratory Rate 16 Blood Pressure 100/55 L BP Systolic 100 BP Diastolic 55 Pulse Ox 10/10/24 06:15 10/10/24 06:15 10/10/24 06:19 Temperature Temperature Source Pulse Rate 102 H Respiratory Rate Blood Pressure 97/55 L BP Systolic 97 BP Diastolic 55 Pulse Ox 100 10/10/24 06:19 10/10/24 06:19 10/10/24 06:20 Temperature Temperature Source Pulse Rate 100 105 H Respiratory Rate 16 Blood Pressure BP Systolic BP Diastolic Pulse Ox 10/10/24 06:20 10/10/24 06:24 10/10/24 06:24 Temperature Temperature Source Pulse Rate 90 Respiratory Rate Blood Pressure 109/62 BP Systolic 109 BP Diastolic 62 Pulse Ox 100 10/10/24 06:24 10/10/24 06:25 10/10/24 06:25 Temperature Temperature Source Pulse Rate 97 Respiratory Rate 16 Blood Pressure BP Systolic BP Diastolic Pulse Ox 100 10/10/24 06:29 10/10/24 06:29 10/10/24 06:29 Temperature Temperature Source Pulse Rate 98 Respiratory Rate 16 Blood Pressure 96/58 L BP Systolic 96 BP Diastolic 58 Pulse Ox 10/10/24 06:34 10/10/24 06:34 10/10/24 06:34 Temperature Temperature Source Pulse Rate 92 Respiratory Rate 16 Blood Pressure 102/61 BP Systolic 102 BP Diastolic 61 Pulse Ox 10/10/24 06:39 10/10/24 06:39 10/10/24 06:39 Temperature Temperature Source Pulse Rate 93 Respiratory Rate 16 Blood Pressure 96/58 L BP Systolic 96 BP Diastolic 58 Pulse Ox 10/10/24 06:44 10/10/24 06:44 10/10/24 06:44 Temperature Temperature Source Pulse Rate 96 Respiratory Rate 16 Blood Pressure 88/54 L BP Systolic 88 BP Diastolic 54 Pulse Ox 10/10/24 06:51 10/10/24 06:51 10/10/24 06:51 Temperature Temperature Source Pulse Rate 87 Respiratory Rate 16 Blood Pressure 93/51 L BP Systolic 93 BP Diastolic 51 Pulse Ox 10/10/24 06:54 10/10/24 06:54 10/10/24 06:54 Temperature Temperature Source Pulse Rate 96 Respiratory Rate 16 Blood Pressure 91/50 L BP Systolic 91 BP Diastolic 50 Pulse Ox 10/10/24 06:59 10/10/24 06:59 10/10/24 06:59 Temperature Temperature Source Pulse Rate 91 Respiratory Rate 16 Blood Pressure 95/53 L BP Systolic 95 BP Diastolic 53 Pulse Ox 10/10/24 07:04 10/10/24 07:04 10/10/24 07:04 Temperature Temperature Source Pulse Rate 99 Respiratory Rate 16 Blood Pressure 92/53 L BP Systolic 92 BP Diastolic 53 Pulse Ox 10/10/24 07:09 10/10/24 07:09 10/10/24 07:09 Temperature Temperature Source Pulse Rate 94 Respiratory Rate 16 Blood Pressure 93/52 L BP Systolic 93 BP Diastolic 52 Pulse Ox 10/10/24 07:15 10/10/24 07:15 10/10/24 07:17 Temperature Temperature Source Temporal Pulse Rate 92 Respiratory Rate Blood Pressure 99/56 L BP Systolic 99 BP Diastolic 56 Pulse Ox 10/10/24 07:17 10/10/24 07:17 10/10/24 07:30 Temperature 97.8 F Temperature Source Pulse Rate 99 Respiratory Rate 16 Blood Pressure BP Systolic BP Diastolic Pulse Ox 10/10/24 07:30 10/10/24 07:35 10/10/24 07:35 Temperature Temperature Source Pulse Rate 94 Respiratory Rate Blood Pressure BP Systolic BP Diastolic Pulse Ox 100 100 10/10/24 07:54 10/10/24 07:54 10/10/24 07:56 Temperature Temperature Source Pulse Rate 94 Respiratory Rate Blood Pressure 101/57 L BP Systolic 101 BP Diastolic 57 Pulse Ox 100 10/10/24 07:56 10/10/24 07:59 10/10/24 07:59 Temperature Temperature Source Pulse Rate 95 113 H Respiratory Rate Blood Pressure BP Systolic BP Diastolic Pulse Ox 100 Weight Weight: 174 lb 3.2 oz Body Mass Index (BMI) 29.9 Physical Exam Const alert, oriented x3 and no apparent distress General Appearance: cooperative Orientation / Consciousness: awake HEENT normocephalic Neck full ROM Lymph Lymphatic: no lymphadenopathy noted Chest inspection of chest normal Resp normal respiratory effort and normal air movement Effort and Inspection: able to speak in complete sentences and symmetric chest movement GI soft to palpation and non-tender Inspection: gravid Palpation: soft; Negative for tender external exam normal Back/Spine normal to inspection Extremity normal to inspection and full ROM Skin no rashes or lesions noted Psych mental status grossly normal Appearance: grossly normal Speech: normal speech Labs Labs Labs: Blood Type O POSITIVE Antibody Screen NEGATIVE Hct 37.3 % (37-47) Hgb 12.7 g/dL (12.0-15.0) Syphilis Total Ab Nonreactive (Nonreactive) Rubella IgG Antibody Reactive (Nonreactive) Hep Bs Antigen Non-Reactive (Nonreactive) Hepatitis C Antibody Non-Reactive (Nonreactive) Chlamydia DNA (SARAH) Negative (Negative) N.gonorrhoeae DNA (SARAH) Negative (Negative) HIV 1&2 Antibody Non-Reactive (Nonreactive) Glucose 1 Hr 50 gm 80 mg/dL (70-140) Assessment & Plan (1) Vaginal delivery: COMMENT: KW IAL girl 40.6 (2) Choroid plexus cyst of fetus: COMMENT: low risk NIPT, no further fu indicated (3) GBS (group B streptococcus) UTI complicating : COMMENT: not high enough to treat in . treat in labor (4) Supervision of normal : COMMENT: PRR, , JENNYFER 4/12/25, girl PC Emiliano, Travis (5) : QUALIFIERS: Weeks of gestation: 40 weeks Qualified Code(s): Z3A.40 - 40 weeks gestation of COMMENT: NIPT low risk, carrier negative last . afp declined. anatomy reveiwed Charges/Coding Multi Select Codes Urinary/Genital Urinary/Genital CPT Codes: No Charge
--- NOTE | 2024-10-10 08:03 | OB.VAGDELI_ITS ---
Assessment & Plan (1) Vaginal delivery: COMMENT: KW IAL girl 40.6 (2) Choroid plexus cyst of fetus: COMMENT: low risk NIPT, no further fu indicated (3) GBS (group B streptococcus) UTI complicating : COMMENT: not high enough to treat in . treat in labor (4) Supervision of normal : COMMENT: PRR, , JENNYFER 10/04/24, girl SULEMA Cummings, Travis (5) : QUALIFIERS: Weeks of gestation: 40 weeks Qualified Code(s): Z3A.40 - 40 weeks gestation of COMMENT: NIPT low risk, carrier negative last . afp declined. anatomy reveiwed Maternal Data Information JENNYFER Calculator Estimated Delivery Date Method Current WG Current Estimate 10/04/24 LMP (Certain) 40w 6d Final JENNYFER: 10/04/24 Final JENNYFER Source: US >20 weeks Gestational age: 40.6 Vaginal Delivery Maternal Presentation Maternal Presentation: Active Labor Maternal Presentation: Presented to unit for active labor and SROM Vaginal Delivery Information Procedure Performed: Spontaneous Vaginal Delivery Surgeon/Practitioner: Misa Bryan Date of Procedure: 10/10/24 Pre-Procedure Diagnosis: see problem list Post-Procedure Diagnosis: same Type of anesthesia: Epidural Estimated Blood Loss: 350 Time of Delivery: 07:42 Findings Description of procedure: Progressed well to 10cm dilated and made steady progress with effective maternal pushing. Delivered the head in CRISTINA presentation. The head was delivered atraumatically and a tight nuchal cord was identified and infant delivered through. The anterior and posterior shoulders delivered without complication followed by the rest of the infant and the was placed on the maternal abdomen. Delayed cord clamping was employed for approximately 3 minutes. Cord was clamped and cut and gentle traction was applied to the cord and the placenta delivered spontaneously. Immediately following, it was noted to be intact with a 3 vessel cord. Uterine bleeding was noted to be brisk after delivery of placenta and IM Methergine, and pitocin given in addition to IV pitocin. Small clot extracted from lower uterine segment. Uterine bleeding then became stable. The perineum and vagina were inspected and noted to have a first degree laceration which was repaired with 3-0 Vicryl in the usual fashion. EBL was 350. Patient and infant tolerated delivery well. Apgars 8/9. Dr Shelton notified of vaginal delivery and orders reviewed. Physician agrees with current plan of care. 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
--- NOTE | 2024-10-10 08:38 | DCINST_ITS ---
Discharge Instructions Diet Discharge Diet: No restrictions DC O2, CPAP, BIPAP needs Home O2 Discharge instructions: No Dressing / Incision Discharge Activity: Return to Normal Activity May resume sexual activity in: 6-8 weeks Dressing / Incision Call your doctor if you observe: Fever of 101 or Higher, Coldness, Increased Pain, Numbness or Tingling, Change in Color, Inability to urinate, Inability to have a bowel movement, Using more than 1 pad per hour, Shortness of breath, Dizziness, Fainting spells, Swelling in the ankles, Chest pain, Increased p alpitations (irregular heartbeat), Calf discomfort and Uncontrolled pain Follow Up Care Please Follow Up With: Misa Bryan CNM When: Please call the office to schedule your follow up appointment in 6 weeks. If you had high blood pressure please call to schedule an appointment in 2 weeks. Test Results: Test results from this visit will be discussed in further detail at your follow- up appointment, if applicable. Discharge Plan Admission Admit Date/Time: 10/10/24 02:54 Attending Provider: Misa Bryan Primary Care Provider: Kaylee Iyer Consulting Providers: Colette Berger Discharge Orders/Prescriptions Prescriptions: No Action PNV-DHA 27 mg iron-1 mg -300 mg capsule 1 cap PO DAILY Referrals / Follow Up: Kaylee Iyer MD [Primary Care Provider] -
[2024-10-11] VITALS: BP 113/75; PULSE 94; RESP 16; TEMP 36.3; O2SAT 16
[2024-10-11 00:04] VITALS: BP 113/75; PULSE 90
[2024-10-11 03:23] VITALS: PULSE 87; O2SAT 94
--- NOTE | 2024-10-11 03:23 | PCM.PN.OB ---
Subjective Subjective Patient doing well without complaints. Tolerating PO. Ambulating and voiding without difficulty. Feeding well. Denies chest pain, shortness of breath, calf pain/swelling, fevers, chills, lightheadedness. Objective Data Objective Data Vital Signs: Vital Signs Temp Pulse Resp BP Pulse Ox O2 Del Method 97.4 F L 90 16 113/75 16 Room Air 10/11/24 00:00 10/11/24 00:04 10/11/24 00:00 10/11/24 00:04 10/11/24 00:00 10/11/24 00:00 Oxygen Delivery Method Room Air Weight: 174 lb 3.2 oz Body Mass Index (BMI) 29.9 Intake & Output: Intake and Output for Last 24 Hours 10/09/24 10/10/24 10/11/24 23:59 23:59 23:59 Intake Total 1825.01 / 1825.01 Output Total 2300 / 2300 Balance -474.99 / -474.99 Lab / Micro Data Attestation: I reviewed the patient's lab results. 10/10/24 03:20 Labs: Laboratory Results - last 24 hr 10/10/24 03:20: WBC 15.3 H, RBC 4.39, Hgb 12.7, Hct 37.3, MCV 85.0, MCH 28.9, MCHC 34.0, RDW Std Deviation 43.1, RDW Coeff of Susan 13.9, Plt Count 188, MPV 10.1, Immature Gran % (Auto) 1.600 H, Neut % (Auto) 71.3 H, Lymph % (Auto) 15.6 L, Baldwin % (Auto) 9.8, Eos % (Auto) 1.2, Baso % (Auto) 0.5, Absolute Neuts (auto) 10.9 H, Absolute Lymphs (auto) 2.38, Nucleated RBC % 0, Syphilis Total Ab Nonreactive, Blood Type O POSITIVE, Antibody Screen NEGATIVE ROS Constitutional Constitutional: Reports systems reviewed and no addt'l complaints, except as documented; Denies anorexia or headache(s) Cardiovascular Cardiovascular: Reports systems reviewed and no addt'l complaints, except as documented; Denies dizziness, dyspnea, nausea or tachypnea Respiratory/Chest Respiratory/Chest: Reports systems reviewed and no addt'l complaints, except as documented; Denies cough, dyspnea, shortness of breath at rest or tachypnea Gastrointestinal Gastrointestinal: Reports systems reviewed and no addt'l complaints, except as documented; Denies abdominal pain, constipation or nausea Genitourinary Genitourinary: Reports systems reviewed and no addt'l complaints, except as documented; Denies burning urination, difficulty urinating, dysuria, urinary frequency or urinary incontinence Musculoskeletal Musculoskeletal: Reports systems reviewed and no addt'l complaints, except as documented Integumentary Integumentary: Reports systems reviewed and no addt'l complaints, except as documented Neurologic Neurologic: Reports systems reviewed and no addt'l complaints, except as documented; Denies abnormal speech, dizziness or headache(s) Psychiatric Psychiatric: Reports systems reviewed and no addt'l complaints, except as documented Endocrine Endocrinology: Reports systems reviewed and no addt'l complaints, except as documented Hematologic/Lymphatic Hematologic/Lymphatic: Reports systems reviewed and no addt'l complaints, except as documented Physical Exam Const alert, oriented x3 and no apparent distress Neck full ROM Resp normal respiratory effort, normal air movement and no retractions Effort and Inspection: able to speak in complete sentences and symmetric chest movement GI soft to palpation Bladder / Kidney Exam: bladder normal to palpation Uterus Palpation: uterus fundus firm Extremity normal to inspection and full ROM Psych mental status grossly normal, thought process normal and cooperative Assessment & Plan (1) Vaginal delivery: COMMENT: KW IAL girl 40.6 PLAN: s/p PPD # 1. routine post delivery care 2. breast feeding- support given 3. rh positive 4. rubella immune 5. Discharge home (2) Choroid plexus cyst of fetus: COMMENT: low risk NIPT, no further fu indicated (3) GBS (group B streptococcus) UTI complicating : COMMENT: not high enough to treat in . treat in labor (4) Supervision of normal : COMMENT: PRR, , JENNYFER 10/04/24, girl PC Emiliano, Travis (5) : QUALIFIERS: Weeks of gestation: 40 weeks Qualified Code(s): Z3A.40 - 40 weeks gestation of COMMENT: NIPT low risk, carrier negative last . afp declined. anatomy reveiwed Charges/Coding Multi Select Codes Urinary/Genital Urinary/Genital CPT Codes: No Charge
[2024-10-11 03:24] VITALS: BP 100/56; PULSE 83; O2SAT 90
[2024-10-11 03:30] VITALS: BP 100/56; PULSE 82; RESP 16; TEMP 36.7; O2SAT 97
[2024-10-11 07:51] VITALS: BP 105/59; PULSE 101; PULSE 94; RESP 16; TEMP 36.6; O2SAT 96; O2SAT 97
== END 2024-10-11 11:35 | disposition home or self-care (01) | DRG 807 ==
LOC: WPOUT 02:58 → WP 02:58
PROVIDERS: Obstetrics & Gynecology; Admitting Provider Advanced Practice Midwife; PCP Family Medicine; Referring Provider Advanced Practice Midwife; Visit Provider Advanced Practice Midwife
DX: O99.354 Diseases of the nervous system complicating childbirth (principal); Z37.0 Single live birth; B95.1 Streptococcus, group B, as the cause of diseases classified elsewhere; G93.0 Cerebral cysts; O69.1XX0 Labor and delivery complicated by cord around neck, with compression, not applicable or unspecified; O72.1 Other immediate postpartum hemorrhage; O70.0 First degree perineal laceration during delivery; Z3A.40 40 weeks gestation of pregnancy
CPT/HCPCS: 59025; 59050; 85025; 86780; 86850; 86900; 86901; 99221; G0378

== ENCOUNTER → 2024-11-25 | Outpatient (CLI) | payer BC, SELFPAY ==
[2024-11-28 13:40] LABS: HPV Reflexed? NOT INDICATED
== END | disposition home or self-care (01) ==
LOC: LABSPEC 14:48
PROVIDERS: PCP Family Medicine; Referring Provider Nurse Practitioner Women's Health; Visit Provider Nurse Practitioner Women's Health
DX: Z12.4 Encounter for screening for malignant neoplasm of cervix (principal)
CPT/HCPCS: 88175; G0145

== ENCOUNTER → 2024-12-02 | Outpatient (CLI) | payer BC, SELFPAY ==
--- NOTE | 2024-12-02 15:27 | US_ITS ---
EXAM: US Pelvis Transvaginal CLINICAL INDICATION: UPPER RIGHT VAGINAL LESION. POSSIBLE FINESSE DUCT TECHNIQUE: Real-time transvaginal pelvic ultrasound with image documentation. Transvaginal imaging was used for better evaluation of the endometrium and adnexa. COMPARISON: No relevant prior studies available. FINDINGS: UTERUS/CERVIX: Anechoic lesion adjacent to the right aspect of the uterus measuring 4.2 x 3.2 x 2.0 cm. The origin was difficult to assess. This could be an duplication cysts or paraovarian cysts. Further evaluation with pelvic MRI with and without contrast is recommended. No myometrial mass. The uterus measures 7.1 x 5.8 x 4.0 cm. The endometrial stripe measures 0.2 cm in thickness. RIGHT OVARY: The right ovary measures 2.9 x 2.2 x 1.8 cm. LEFT OVARY: Unremarkable. Normal blood flow. The left ovary measures 2.1 x 2.0 x 1.6 cm. FREE FLUID: No free fluid. BLADDER: Empty bladder which cannot be evaluated with this probe. US/Pelvic w/ Transvaginal IMPRESSION: Anechoic lesion adjacent to the right aspect of the uterus measuring 4.2 x 3.2 x 2.0 cm. The origin was difficult to assess. This could be an duplication cysts or paraovarian cysts. Further evaluation [facility] pelvic MRI with and without contrast is recommended. Reading [facility]
--- OUTSIDE RECORDS SUMMARY | 2024-12-03 00:03 | XMS RPT_ITS | CCD ---
Author Organization [facility] Providers Care Night Baker Name Role Phone Dr. Arianna Iyer Primary Care Provider [phone] Dr. Arianna Iyer Referring Provider Dr. Colette Berger Attending Provider [phone] Dr. Arianna Iyer Primary Care Provider [phone] Dr. Arianna Iyer Referring Provider FARRAH Cortez Attending Provider [phone] Dr. Debora Milan Attending Provider [phone] Dr. Colette Berger Attending Provider [phone] Jacqueiln ALFRED, PASSENGER SERVICE SUPERVISOR-C Ailyn Attending Provider [phone] Dr. Arianna Iyer Primary Care Provider [phone] Dr. Arianna Iyer Referring Provider FARRAH Bryan Admit Provider [phone] FARRAH Bryan Attending Provider [phone] FARRAH Bryan Referring Provider [phone] FARRAH Bryan Other Provider [phone] Dr. Colette Berger Other Provider FARRAH Cortez Attending Provider [phone] Dr. Arianna Iyer Primary Care Provider [phone] Dr. Arianna Iyer Referring Provider Dr. Debora Milan Attending Provider [phone] Dr. Colette Berger Attending Provider [phone] José PASSENGER SERVICE SUPERVISOR, PASSENGER SERVICE SUPERVISOR-Re Jean-Baptiste Attending Provider DEBORA MILAN Referring Unavailabl e DEBORA MILAN Attending Unavailabl e IYER, ARIANNA N Primary Care Unavailable Jaylon RICO, Dr. Page Primary Care Provider Misa Bryan CNM Attending Provider Irvin YAN, Misa Referring Provider Dr. Arianna Iyer MD Referring Provider Diego YAN, Pamela Attending Provider Cam RICO, Dr. Cazares Attending Provider [phone] Hayley Zamarripa DO, Dr. Alvarenga Attending Provider Hayley Zamarripa DO, Dr. Alvarenga Other Provider [phone] Irvin YAN, Misa Admit Provider Misa Bryan CNM Other Provider [phone] Dr. Arianna Iyer MD Primary Care Provider Dr. Arianna Iyer MD Referring Provider Misa Bryan CNM Attending Provider [phone] Misa Bryan CNM Referring Provider [phone] Jacquelin PASSENGER SERVICE SUPERVISOR-CAilyn Attending Provider [phone] Jacquelin PASSENGER SERVICE SUPERVISOR-CAilyn Referring Provider Iyer, Arianna Primary Care Unavailable Iyer, Arianna Referring Unavailable Colette Berger Attending Unavailabl e Iyer, Arianna Primary Care Unavailable Iyer, Arianna Referring Unavailable Debora Milan Attending Unavailable Colette Berger Admitting Unavailabl e Vande VeldeColette Referring Unavailabl e Vande VeldeColette Attending Unavailabl e Iyer, Arianna Primary Care Unavailable Iyer, Arianna Referring Unavailable Iyer, Arianna Primary Care Unavailable Misa Bryan Attending Unavailable Iyer, Arianna Primary Care Unavailable Iyer, Arianna Referring Unavailable Misa Bryan Attending Unavailable Iyer, Arianna Referring Unavailable Iyer, Arianna Primary Care Unavailable Misa Bryan Attending Unavailable Iyer, Arianna Referring Unavailable Iyer, Arianna Primary Care Unavailable Misa Bryan Attending Unavailable Iyer, Arianna Primary Care Unavailable Henderson PASSENGER SERVICE SUPERVISOR, Ailyn Referring Unavailable Jacquelin PASSENGER SERVICE SUPERVISOR, Ailyn Attending Unavailable Iyer, Arianna Primary Care Unavailable Jacquelin PASSENGER SERVICE SUPERVISOR, Ailyn Referring Unavailable Henderson PASSENGER SERVICE SUPERVISOR, Ailyn Attending Unavailable Pamela Cortez Attending Unavailable Iyer, Arianna Primary Care Unavailable Iyer, Arianna Referring Unavailable Iyer, Arianna Referring Unavailable Debora Milan Attending Unavailable Iyer, Arianna Primary Care Unavailable Iyer, Arianna Primary Care Unavailable Misa Bryan Referring Unavailable Misa Bryan Attending Unavailable Iyer, Arianna Primary Care Unavailable Vande Velde, Colette Referring Unavailabl e Vande Velde, Colette Attending Unavailabl e Iyer, Arianna Primary Care Unavailable Vande Dallin, Colette Consulting UnavailMisa Sotelo Admitting Unavailable Misa Bryan Referring Unavailable Misa Bryan Attending Unavailable Iyer, Arianna Referring Unavailable Vande Velde, Colette Attending Unavailabl e Iyer, Arianna Primary Care Unavailable Iyer, Arianna Referring Unavailable Iyer, Arianna Primary Care Unavailable Misa Bryan Attending Unavailable Iyer, Arianna Referring Unavailable Vande Velde, Colette Attending Unavailabl e Iyer, Arianna Primary Care Unavailable Iyer, Arianna Primary Care Unavailable Iyer, Arianna Referring Unavailable Henderson PASSENGER SERVICE SUPERVISOR, Ailyn Attending Unavailable Iyer, Arianna Referring Unavailable Misa Bryan Attending Unavailable Iyer, Arianna Primary Care Unavailable Iyer, Arianna Referring Unavailable Vande Velde, Colette Attending Unavailabl e Iyer, Arianna Primary Care Unavailable Iyer, Arianna Primary Care Unavailable Vande Dallin, Colette Consulting UnavailMisa Sotelo Admitting Unavailable Misa Bryan Referring Unavailable Misa Bryan Attending Unavailable Misa Bryan Consulting Unavailable Medications Current Medications Medication Drug Class(es) Dates Sig (Normalized) Sig (Original) Multivit 90-Gfsd-Kqbxql 1-Dha (Pnv-Dha) 27 mg iron-1 mg -300 mg capsule (7 sources) Start: 06-01-2022 Multivit 62-Vyca-Itdhia 1-Dha (Pnv-Dha) 27 mg iron-1 mg -300 mg capsule Active 1 NMA PO DAILY June 01, 2022 1:00am Start: 06-01-2022 Multivit 47-Ir on-Folate 1-Dha (Pnv-Dha) 27 mg iron-1 mg -300 mg capsule Active CAP PO June 01, 2022 1:00am Start: 06-01-2022 Multivit 47-Ir on-Folate 1-Dha (Pnv-Dha) 27 mg iron-1 mg -300 mg capsule Active CAP PO June 01, 2022 12:00am Completed/Discontinued Medications Medication Drug Class(es) Dates Sig (Normalized) Sig (Original) cephalexin 500 mg oral tablet (3 sources) Cephalosporin Antibacterial Start: 03-08-2023 End: 03-15-2023 take 1 tablet by mouth twice daily Cephalexin 500 mg tablet Discontinued 500 mg PO TWICE A DAY 14 March 08, 2023 12:00am March 14, 2023 12:00am March 15, 2023 12:04am Problems Active Problems Problem Classification Problem Date Documented Date Episodic/Chronic Bacterial infection; unspecified site (2 sources) Streptococcus, group B, as the cause of diseases classified elsewhere; Translations: [Streptococcus, group B, as the cause of diseases classified elsewhere] Onset: 10-06-2024 Episodic Other complications of ; puerperium affecting management of mother (2 sources) Other disorders of breast associated with and the puerperium; Translations: [Other and unspecified disorder of breast associated with childbirth, condition or complication] 01-22-2023 Episodic Other complications of (18 sources) Urinary tract infection in ; Translations: [Unspecified infection of urinary tract in , unspecified trimester] 03-19-2024 Episodic Comment on above: not high enough to t reat in . treat in labor Other complications of (2 sources) Unspecified infection of urinary tract in , unspecified trimester; Translations: [Unspecified infection of urinary tract in , unspecified trimester] Onset: 10-06-2024 Episodic Other female genital disorders (2 sources) Vaginal lesion; Translations: [Other specified noninflammatory disorders of vagina] 11-25-2024 Episodic Comment on above: possible germaine pretty t cyst. right vaginal wall, 5-6cm in size Other female genital disorders (2 sources) Other specified noninflammatory disorders of vagina; Translations: [Other specified noninflammatory disorders of vagina] Onset: 11-25-2024 Episodic Other conditions (18 sources) choroid plexus cyst 05-21-2024 Episodic Comment on above: low risk NIPT, no fu rther fu indicated Other and delivery including normal (20 sources) Normal ; Translations: [Encounter for supervision of normal first , unspecified trimester] Onset: 10-06-2024 Episodic Comment on above: KW IAL girl 40.6 PRR JENNYFER 01/12/23 boy Emiliano Travis PRR, , JENNYFER , girl PC Emiliano, Travis 01/17/23 Melvin JV NIPT low risk, aleks er negative last . afp declined. anatomy reveiwed KW IAL girl 40.6 Ivana justo Other screening for suspected conditions (not mental disorders or infectious disease) (1 source) Encounter for screening for malignant neoplasm of cervix; Translations: [Encounter for screening for malignant neoplasm of cervix] Onset: 12-01-2024 Episodic Residual codes; unclassified (2 sources) 40 weeks gestation of ; Translations: [40 weeks gestation of ] Onset: 10-06-2024 Episodic Residual codes; unclassified (1 source) 38 weeks gestation of ; Translations: [38 weeks gestation of ] Onset: 09-29-2024 Episodic Residual codes; unclassified (1 source) 37 weeks gestation of ; Translations: [37 weeks gestation of ] Onset: 09-15-2024 Episodic Past or Other Problems Problem Classification Problem Date Documented Da te Episodic/Chronic Immunizations and screening for infectious disease (1 source) Encounter for immunization; Translations: [Encounter for immunization] Onset: 08-01-2024 Episodic Residual codes; unclassified (1 source) 32 weeks gestation of ; Translations: [32 weeks gestation of ] Onset: 08-14-2024 Episodic Residual codes; unclassified (1 source) 23 weeks gestation of ; Translations: [23 weeks gestation of ] Onset: 06-09-2024 Episodic Residual codes; unclassified (1 source) 19 weeks gestation of ; Translations: [19 weeks gestation of ] Onset: 05-12-2024 Episodic Residual codes; unclassified (1 source) 15 weeks gestation of ; Translations: [15 weeks gestation of ] Onset: 04-14-2024 Episodic Results Test Name Value Interpretation Reference Range Facility PAP I-G w/rfx hrHPV-Aptimaon 11-28-2024 ADEQ Comment Normal . [facility] Comment on above: Order Comment: Speci men Comment: [id number] Specimen Comment: No. of containers..01 ThinPrep Vial Result Comment: Sati sfactory for evaluation. Endocervical and/or squamous metaplastic cells (endocervical component) are present. Performed By: #### L 7400.0353 #### [facility] [address] [place], [address] COMM . Normal . [facility] Comment on above: Order Comment: Speci men Comment: [id number] Specimen Comment: No. of containers..01 ThinPrep Vial Performed By: #### L 7400.0353 #### [facility] [address] [place], [address] COMMENT Comment Normal . [facility] Comment on above: Order Comment: Speci men Comment: [id number] Specimen Comment: No. of containers..01 ThinPrep Vial Result Comment: This liquid based ThinPrep(R) pap test was screened with the use of an image guided system. Performed By: #### L 7400.0353 #### [facility] [address] [place], [address] DIAG Comment Normal . [facility] Comment on above: Order Comment: Speci men Comment: [id number] Specimen Comment: No. of containers..01 ThinPrep Vial Result Comment: NEGA TIVE FOR INTRAEPITHELIAL LESION OR MALIGNANCY. Performed By: #### L 7400.0353 #### [facility] [address] [place], [address] HPV RFLX Comment Normal . [facility] Comment on above: Order Comment: Speci men Comment: [id number] Specimen Comment: No. of containers..01 ThinPrep Vial Result Comment: The HPV DNA reflex criteria were not met with this specimen result therefore, no HPV testing was performed. Performed at: [address], [place] [id number] Lap Polisher: Sadia Chew MD, Phone: [phone] Performed By: #### L 7400.0353 #### [facility] [address] [place], [place], [address] PAPSMR Comment Normal . [facility] Comment on above: Order Comment: Speci men Comment: [id number] Specimen Comment: No. of containers..01 ThinPrep Vial Result Comment: The Pap smear is a screening test designed to aid in the detection of premalignant and malignant conditions of the uterine cervix. It is not a diagnostic procedure and should not be used as the sole means of detecting cervical cancer. Both false-positive and false-negative reports do occur. Performed By: #### L 7400.0353 #### [facility] [address] [place], [place], [id number] PERFORM Comment Normal . [facility] Comment on above: Order Comment: Speci men Comment: [id number] Specimen Comment: No. of containers..01 ThinPrep Vial Result Comment: Pillo Fleming Customs And Border Protection Officer (ASCP) Performed By: #### L 7400.0353 #### [facility] [address] [place], [place], [id number] Cervical or vagninal specime n microscopic examination by cytology stain (reported asOrdered By: Ailyn Roper on 11-25-2024 Cytology report Cyto stain Doc (Cvx/Vag) Comment . [facility] Comment on above: The Pap smear is a s creening test designed to aid in thedetection of premalignant and malignant conditions of theuterine cervix. It is not a diagnostic procedure andshould not be used as the sole means of detecting cervicalcancer. Both false-positive and false-negative reports dooccur. Laboratory - CytologyOrdered By: Ailyn Roper on 11-25-2024 Customs And Border Protection Officer Cyto stain Nom (Cvx/Vag) [ID] Comment . [facility] Comment on above: Ez Bebo Fleming, Customs And Border Protection Officer (ASCP) Laboratory - Miscellaneous t estsOrdered By: Ailyn Roper on 11-25-2024 Service comment (Unsp spec) [Interp] . . [facility] No Panel InformationOrdered By: Ailyn Roper on 11-25-2024 Pap Smear Specimen Adequacy Comment . [facility] Comment on above: Satisfactory for megan luation. Endocervical and/or squamous metaplasticcells (endocervical component) are present. Duct Layer Helper Office Visit Reporton 11-25-2024 Duct Layer Helper Office Visit Report [facility] [address], [address] [place] [address] OFFICE VISIT Date of Service: 11/25/24 MR#: [id number] Acct: [id number] Name: MAYELA ARRIETA Rep #: [id number] : 2000 Provider: GUMARO murray Age/Sex: 24/F Location: [facility] [place] Status: Signed Intake Vital Signs 10/10/24 00:22 11/25/24 10:35 11/25/24 10:40 Height 5 ft 4 in 5 ft 4 in 5 ft 4 in Weight: 150 lb BMI 25.7 BP 98/70 Intake Visit Reasons: visit (obstetrics) Chief Complaint: 6 Week PP Lag Screwer Required: No Is patient in pain?: No Allergies No Known Allergies Allergy (Verified 11/25/24 10:35) Medications ???Medication ???Instructions ???Recorded ???Confirmed ???Type multivitamin no.47-iron fum 27 1 cap PO DAILY 06/01/22 11/25/24 H istory mg-folate no.1 1 mg-dha 300 mg capsule (PNV-DHA) : Yes PFSH Family History Aunt Breast cancer, Onset Age: 40 Maternal Ovarian cancer, Onset Age: 50 Paternal Social History adopted: No household members: spouse housing: house number of children: 1 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 Back to pre weight. 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 Date Name GA/Weeks Outcome Route Bth Weight Gen Labor Lgth Anesthesia Del Locatn Provider FOB 01/17/23 Emiliano 40 live - full term 8.5# Male epidural [facility] J ennifer Hayley Zamarripa Travis 10/10/24 Sharon 40 live - full term 7lbs 10oz Female epidural [facility] KW Travis Delivery Date: 01/17/23 Last Updated by: Lisa Maya see problem list for complications. Delivery Date: 10/10/24 Last Updated by: Ivy Medrano RN See problem list for complications, and KW IAL 40.6 girl Depression Screen PHQ-2/9 PHQ-2 Over the last 2 weeks, how often have you been bothered by any of the following problems? 1. Little interest or pleasure in doing things: not at all 2. Feeling down, depressed, or hopeless: not at all Total score: 0 Post HPI Routine Follow-Up: Details: MAYELA ARRIETA is a 24 year old who presents for her post visit. Denies concerns Feeding: Breast Menses resumed: No Glendo since delivery: No Emotional Support: Yes Last Pap:: 2021 Control Method: condoms ROS Const Reports system reviewed and no additional complaints, except as documented Card Denies chest pain and Denies dyspnea Resp Denies dyspnea GI Denies bloating and Denies change in bowel habits Denies difficulty voiding Skin/Breast Denies breast mass, Denies breast pain and Denies breast skin changes Exam Const General: cooperative, no acute distress and well developed Nutritional Appearance: average body habitus Orientation: oriented x3 Neck Neck: normal visual inspection Thyroid: thyroid normal Chest Chest palpation inspection: abnormal inspection of the chest Breast inspection: normal inspection of the breasts Breast palpation: normal palpation of the breasts, normal palpation of the axillae and no axillary lymphadenopathy Resp Effort Inspection: normal respiratory effort GI Palpation: soft, no masses and nontender General: bladder normal to palpation External Female Exam: normal external appearance and normal appearance of the urethra Urethra: normal appearance of the urethra Speculum Exam - Vagina: normal vaginal discharge and lesion (5-6cm right lateral cyst appearing lesion, noted extending from vag wall) Speculum Exam - Cervix: normal appearance of the cervix (difficult to visualize due to vaginal cyst) Bimanual Exam- Vagina Uterus: uterine size normal, bladder normal to p (more content not included)... Normal [facility] Absolute lymphocyte countOrd ered By: Colette Zamarripa on 10-10-2024 Lymphocytes Auto (Unsp spec) [#/Vol] 2.38 10*3/uL 0.83-4.51 [facility] Absolute neutrophil countOrd ered By: Colette Zamarripa on 10-10-2024 Neutrophils (Bld) [#/Vol] 10.9 10*3/uL High 2.0-7.7 [facility] Automated lymphocyte count a s percentage of total leukocytesOrdered By: Colette Zamarripa on 10-10-2024 Lymphocytes/100 WBC Auto (Unsp spec) 15.6 % Low 19-41 [facility] Basophil percentageOrdered B y: Colette Zamarripa on 10-10-2024 Basophils/100 WBC (Bld) 0.5 % 0-1 [facility] CBC W/Diff, Automatedon 09-23 Absolute Lymph 2.38 X10 3/uL Normal 0.83-4.51 [facility] Comment on above: Performed By: #### B , L100.0100 #### [facility] [address] [place] [address]. [place], [place], [id number] Absolute Neut 10.9 X10 3/uL High 2.0-7.7 [facility] Comment on above: Performed By: #### Arthur RUTLEDGE, L100.0100 #### [facility] [address] [place], [address] Basophils/100 WBC (Bld) 0.5 % Normal 0-1 [facility] Comment on above: Performed By: #### Arthur RUTLEDGE, L100.0100 #### [facility] [address] [place], [address] Eosinophils/100 WBC (Bld) 1.2 % Normal 0-5 [facility] Comment on above: Performed By: #### Arthur RUTLEDGE, L100.0100 #### [facility] [address] [place], [address] Erythrocyte distribution width (RBC) [Ratio] 13.9 % Normal 11.6-14.6 [facility] Comment on above: Performed By: #### Arthur RUTLEDGE, L100.0100 #### [facility] [address] [place], [address] Hematocrit (Bld) [Volume fraction] 37.3 % Normal 37-47 [facility] Comment on above: Performed By: #### Arthur RUTLEDGE, L100.0100 #### [facility] [address] [place], [address] Hemoglobin (Bld) [Mass/Vol] 12.7 g/dL Normal 12.0-15.0 [facility] Comment on above: Performed By: #### Arthur RUTLEDGE, L100.0100 #### [facility] [address] [place], [address] IG% 1.600 High 0.0-0.9 [facility] Comment on above: Result Comment: IG% - Immature Granulocytes (promyelocytes, myelocytes and metamyelocytes) > 1% indicates that a LEFT SHIFT is Present. Performed By: #### Arthur RUTLEDGE, L100.0100 #### [facility] [address] [place], [address] Lymphocytes/100 WBC (Bld) 15.6 % Low 19-41 [facility] Comment on above: Performed By: #### Arthur RUTLEDGE, L100.0100 #### [facility] [address] [place], [address] MCH (RBC) [Entitic mass] 28.9 pg Normal 27.0-32.0 [facility] Comment on above: Performed By: #### Arthur RUTLEDGE, L100.0100 #### [facility] [address] [place], [address] MCHC (RBC) [Mass/Vol] 34.0 g/dL Normal 32-36 [facility] Comment on above: Performed By: #### Arthur RUTLEDGE, L100.0100 #### [facility] [address] [place], [address] MCV (RBC) [Entitic vol] 85.0 fL Normal 81-99 [facility] Comment on above: Performed By: #### Arthur RUTLEDGE, L100.0100 #### [facility] [address] [place], [address] Monocytes/100 WBC (Bld) 9.8 % Normal 0-10 [facility] Comment on above: Performed By: #### Arthur RUTLEDGE, L100.0100 #### [facility] [address] [place], [address] Neutrophils/100 WBC (Bld) 71.3 % High 47-70 [facility] Comment on above: Performed By: #### Arthur RUTLEDGE, L100.0100 #### [facility] [address] [place], [address] Nucleated RBC (Bld) [#/Vol] 0 10*3/uL Normal 0-5 [facility] Comment on above: Performed By: #### Arthur RUTLEDGE, L100.0100 #### [facility] [address] [place], [address] Platelet mean volume (Bld) [Entitic vol] 10.1 fL Normal 6.2-12.0 [facility] Comment on above: Performed By: #### Arthur RUTLEDGE, L100.0100 #### [facility] [address] [place], [address] Platelets (Bld) [#/Vol] 188 10*3/uL Normal 150-450 [facility] Comment on above: Performed By: #### Arthur RUTLEDGE, L100.0100 #### [facility] [address] [place], [address] RBC (Bld) [#/Vol] 4.39 10*6/uL Normal 4.2-5.4 [facility] Comment on above: Performed By: #### Arthur RUTLEDGE, L100.0100 #### [facility] [address] [place], [address] RDW SD 43.1 fl Normal 35.1-43.9 [facility] Comment on above: Performed By: #### Arthur RUTLEDGE, L100.0100 #### [facility] [address] [place], [address] WBC (Bld) [#/Vol] 15.3 10*3/uL High 4.4-11.0 [facility] Comment on above: Performed By: #### Arthur RUTLEDGE, L100.0100 #### [facility] [address] [place], [address] Discharge Instructionon 09-23 Discharge Instruction [facility] Medical Records Department [address] [place] [address] Instructions for Home/Discharge Instructions 10/10/24 0838 MR#: [id number] Acct: [id number] Name: MAYELA ARRIETA Rep #: [id number] : 2000 24 From: Misa Bryan CNM PCP: Dr. Arianna Iyer MD Status:ADM IN Discharge Instructions Diet Discharge Diet: No restrictions DC O2, CPAP, BIPAP needs Home O2 Discharge instructions: No Dressing / Incision Discharge Activity: Return to Normal Activity May resume sexual activity in: 6-8 weeks Dressing / Incision Call your doctor if you observe: Fever of 101 or Higher, Coldness, Increased Pain, Numbness or Tingling, Change in Color, Inability to urinate, Inability to have a bowel movement, Using more than 1 pad per hour, Shortness of breath, Dizziness, Fainting spells, Swelling in the ankles, Chest pain, Increased palpitations (irregular heartbeat), Calf discomfort and Uncontrolled pain Follow Up Care Please Follow Up With: Misa Bryan CNM When: Please call the office to schedule your follow up appointment in 6 weeks. If you had high blood pressure please call to schedule an appointment in 2 weeks. Test Results: Test results from this visit will be discussed in further detail at your follow-up appointment, if applicable. Discharge Plan Admission Admit Date/Time: 10/10/24 02:54 Attending Provider: Misa Bryan Primary Care Provider: Arianna Iyer Consulting Providers: Colette Berger Discharge Orders/Prescriptions Prescriptions: No Action PNV-DHA 27 mg iron-1 mg -300 mg capsule 1 cap PO DAILY Referrals / Follow Up: Arianna Iyer MD [Primary Care Provider] - 10/10/24 0838 Misa Bryan CNM CC: Dr. Colette Berger DO; Dr. Arianna Iyer MD Signed Normal [facility] Eosinophil percentageOrdered By: Colette Zamarripa on 10-10-2024 Eosinophils/100 WBC (Bld) 1.2 % 0-5 [facility] Erythrocyte distribution wid th (RBC) [Ratio]Ordered By: Colette Zamarripa on 10-10-2024 Erythrocyte distribution width (RBC) [Entitic vol] 43.1 fL 35.1-43.9 [place] Erythrocyte distribution wid th ratioOrdered By: Colette Zamarripa on 10-10-2024 Erythrocyte distribution width (RBC) [Ratio] 13.9 % 11.6-14.6 [place] Erythrocyte distribution wid th standard deviationOrdered By: Colette Zamarripa on 10-10-2024 Erythrocyte distribution width (RBC) [Ratio] 43.1 fl 35.1-43.9 [place] H AND P Exam - OB/GYNon 09-23 H&P Exam - 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 Arianna Iyer MD Status:ADM IN Location: [id number] HPI - General General Date of Admission: 10/10/24 Date of Service: 10/10/24 HPI Narrative MAYELA ARRIETA, is a 24 F 40.6 weeks who presents to unit in active labor. Maternal Data Information JENNYFER Calculator Estimated Delivery Date Method Current WG Current Estimate 10/04/24 LMP (Certain) 40w 6d Final JENNYFER: 10/04/24 Final JENNYFER Source: US >20 weeks Gestational age: 40.6 PFSH PFSH Home Medications ???Medication ???Instructions ???Recorded ???Last Taken ???Type multivitamin no.47-iron fum 27 1 cap PO DAILY 06/01/22 01/01/23 H istory mg-folate no.1 1 mg-dha 300 mg capsule (PNV-DHA) Allergy/AdvReac Type Severity Reaction Status Date / Time No Known Allergies Allergy Verified 10/10/24 00:21 Family History Aunt Breast cancer, Onset Age: 40 Maternal Ovarian cancer, Onset Age: 50 Paternal Social History adopted: No household members: spouse housing: house number of children: 1 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 Back to pre weight. 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 Date Name GA/Weeks Outcome Route Bth Weight Infant Gen Labor Lgth Anesthesia Del Locatn Provider FOB 01/17/23 Emiliano 40 live - full term 8.5# Male epidural [facility] miltonstefan Hayley Robles Delivery Date: 01/17/23 Last Updated by: Lisa Maya see problem list for complications. Visit Details Expected Delivery Route/Plan Labor Preferences- CB/BF classes: [] labor support person: [] labor intervention preferences: [] pain management options preferred: epidural : [] PP control planned: [] discussed possible routes of delivery and associated risks: [] special requests: [] Plans Covid status: [] Flu vaccine: given Tdap vaccine: given Rhogam: [] LARC form signed: declined movement and labor precautions reviewed. Problem list reviewed and updated with the most current plan of care details and appropriate orders placed. Relevant counseling for the gestational age provided. Continue routine care and follow up unless otherwise noted in visit notes/problem list details OB Flowsheet Initial Weight: Not Recorded Date -???-???-???-???-??? -???-???-???-???-??? -???-???- EGA Weight BP Urine Prot -???-???-???-???-??? -???-???-???-???-??? -???-???- Glucose FHR FuHt Pres Dilation -???-???-???-???-??? -???-???-???-???-??? -???-???- Effaced St Visit Note 03/17/24 -???-???-???-???-??? -???-???-???-???-??? -???-???- 11w 2d 136 lb 4 oz 108/68 -???-???-???-???-??? -???-???-???-???-??? -???-???- 163 -???-???-???-???-??? -???-???-???-???-??? -???-???- JV- CRL sukhwinder ures 4.18 cm. This is consistent with JENNYFER per LMP. Patient desires NIPT with gender. 04/14/24 -???-???-???-???-??? -???-???-???-???-??? -???-???- 15w 2d 140 lb 110/68 -???-???-???-???-??? -???-???-???-???-??? -???-???- 150 -???-???-???-???-??? -???-???-???-???-??? -???-???- SM- no vb cr amping SM- no vb cramping flu vaccine giv en 05/12/24 -???-???-???-???-??? -???-???-???-???-??? -???-???- 19w 2d 141 lb 92/57 Negative -???-???-???-???-??? -???-???-???-???-??? -???-???- Negative 145 -???-???-???-???-??? -???-???-???-???-??? -???-???- KW- no vb/lo f/ctx. possible fm. US next week. 06/09/24 -???-???-???-???-??? -???-???-???-???-??? -???-???- 23w 2d 149 lb 101/67 Negative -???-???-???-???-??? -???-???-???- (more content not included)... Normal [place] Hematocrit Auto (Bld) [Volum e fraction]Ordered By: Colette Zamarripa on 10-10-2024 Hematocrit (Bld) [Volume fraction] 37.3 % 37-47 [facility] Hemoglobin measurementOrdere d By: Colette Zamarripa on 10-10-2024 Hemoglobin (Bld) [Mass/Vol] 12.7 g/dL 12.0-15.0 [facility] Immature granulocytes/100 WB C Auto (Bld)Ordered By: Colette Zamarripa on 10-10-2024 Immature granulocytes/100 WBC (Bld) 1.600 % High 0.0-0.9 [facility] Comment on above: IG% - Immature Granu locytes (promyelocytes, myelocytes and metamyelocytes) > 1% indicates that a LEFT SHIFT is Present. Lymphocytes Auto (Unsp spec) [#/Vol]Ordered By: Colette Zamarripa on 10-10-2024 Lymphocytes (Bld) [#/Vol] 2.38 10*3/uL 0.83-4.51 [facility] Lymphocytes/100 WBC Auto (Un sp spec)Ordered By: Colette Zamarripa on 10-10-2024 Lymphocytes/100 WBC (Bld) 15.6 % Low 19-41 [facility] MCV (mean corpuscular volume ) determinationOrdered By: Colette Zamarripa on 10-10-2024 MCV (RBC) [Entitic vol] 85.0 fL 81-99 [facility] MR/OB.VAGDELIon 10-10-2024 MR/OB.VAGDELI [facility] Medical Records Department [address] [place] [address] OB Vaginal Delivery 10/10/24 0803 MR#: [id number] Acct: [id number] Name: MAYELA ARRIETA Rep #: [id number] : 2000 24 From: Misa Bryan CNM PCP: Dr. Arianna Iyer MD Status:ADM IN Location: [id number] Assessment Plan (1) Vaginal delivery: COMMENT: KW IAL girl 40.6 (2) Choroid plexus cyst of fetus: COMMENT: low risk NIPT, no further fu indicated (3) GBS (group B streptococcus) UTI complicating : COMMENT: not high enough to treat in . treat in labor (4) Supervision of normal : COMMENT: PRR, , JENNYFER 10/04/24, girl PC Emiliano, Travis (5) : QUALIFIERS: Weeks of gestation: 40 weeks Qualified Code(s): Z3A.40 - 40 weeks gestation of COMMENT: NIPT low risk, carrier negative last . afp declined. anatomy reveiwed Maternal Data Information JENNYFER Calculator Estimated Delivery Date Method Current WG Current Estimate 10/04/24 LMP (Certain) 40w 6d Final JENNYFER: 10/04/24 Final JENNYFER Source: US >20 weeks Gestational age: 40.6 Vaginal Delivery Maternal Presentation Maternal Presentation: Active Labor Maternal Presentation: Presented to unit for active labor and SROM Vaginal Delivery Information Procedure Performed: Spontaneous Vaginal Delivery Surgeon/Practitioner : Misa Bryan Date of Procedure: 10/10/24 Pre-Procedure Diagnosis: see problem list Post-Procedure Diagnosis: same Type of anesthesia: Epidural Estimated Blood Loss: 350 Time of Delivery: 07:42 Findings Description of procedure: Progressed well to 10cm dilated and made steady progress with effective maternal pushing. Delivered the head in CRISTINA presentation. The head was delivered atraumatically and a tight nuchal cord was identified and infant delivered through. The anterior and posterior shoulders delivered without complication followed by the rest of the and the infant was placed on the maternal abdomen. Delayed cord clamping was employed for approximately 3 minutes. Cord was clamped and cut and gentle traction was applied to the cord and the placenta delivered spontaneously. Immediately following, it was noted to be intact with a 3 vessel cord. Uterine bleeding was noted to be brisk after delivery of placenta and IM Methergine, and pitocin given in addition to IV pitocin. Small clot extracted from lower uterine segment. Uterine bleeding then became stable. The perineum and vagina were inspected and noted to have a first degree laceration which was repaired with 3-0 Vicryl in the usual fashion. EBL was 350. Patient and tolerated delivery well. Apgars 8/9. Dr Shelton notified of vaginal delivery and orders reviewed. Physician agrees with current plan of care. 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 Colette Berger DO; Dr. Arianna Iyer MD Signed Normal [place] Mean corpuscular hemoglobin (MCH) determinationOrdered By: Colette Zamarripa on 10-10-2024 MCH (RBC) [Entitic mass] 28.9 pg 27.0-32.0 [facility] Mean corpuscular hemoglobin concentration (MCHC) determinationOrdered By: Colette Zamarripa on 10-10-2024 MCHC (RBC) [Mass/Vol] 34.0 g/dL 32-36 [facility] Mean platelet volume determi nationOrdered By: Colette Zamarripa on 10-10-2024 Platelet mean volume (Bld) [Entitic vol] 10.1 fL 6.2-12.0 [place] Monocyte percentageOrdered B y: Colette Zamarripa on 10-10-2024 Monocytes/100 WBC (Bld) 9.8 % 0-10 [facility] Neutrophil percentageOrdered By: Colette Zamarripa on 10-10-2024 Neutrophils/100 WBC (Bld) 71.3 % High 47-70 [facility] Nucleated red blood cell per centageOrdered By: Colette Zamarripa on 10-10-2024 Nucleated RBC/100 WBC (Bld) [Ratio] 0 % 0-5 [facility] Platelet countOrdered By: Enrique Zamarripa on 10-10-2024 Platelets (Bld) [#/Vol] 188 10*3/uL 150-450 [place] RBC Auto (Bld) [#/Vol]Ordere d By: Colette Zamarripa on 10-10-2024 RBC (Bld) [#/Vol] 4.39 10*6/uL 4.2-5.4 [facility] Syphilis Antibodieson 2024 Syphilis Abs Non-Reactive Normal Nonreactive [place] Comment on above: Performed By: #### L [id number] ####[facility] [address] [place], [place], [id number] T. pallidum abOrdered By: Enrique Zamarripa on 10-10-2024 Syphilis Total Antibody Non-Reactive Nonreactiv e [place] Type AND Screenon 10-10-2024 ABO and Rh group Nom (Bld) Blood group O Rh(D) positive Normal [place] Comment on above: Order Comment: Labor Performed By: #### B TS, L100.0100 #### [facility] [address] [place], [place], [id number] White blood cell (WBC) count Ordered By: Colette Zamarripa on 10-10-2024 WBC (Bld) [#/Vol] 15.3 10*3/uL High 4.4-11.0 [facility] Laboratory - Chemistry and C hemistry - challengeOrdered By: Misa Bryan on 10-06-2024 Glucose Ql (U) Negative [facility] - UrinalysisOrder ed By: Misa Bryan on 10-06-2024 Protein Ql (U) Negative [place] Duct Layer Helper Office Visit Reporton 10-06-2024 Duct Layer Helper Office Visit Report [facility] [address], [address] [place] [address] OFFICE VISIT Date of Service: 10/06/24 MR#: [id number] Acct: [id number] Name: MAYELA ARRIETA Rep #: [id number] : 2000 Provider: FARRAH Gamble ams Age/Sex: 24/F [place] [facility] [place] Status: Signed Intake Vital Signs 05/12/24 10:06 09/29/24 13:49 10/06/24 14:06 Height 5 ft 4 in 5 ft 4 in 5 ft 4 in Weight: 176 lb 8 oz BMI 30.2 BP 109/65 Intake Visit Reasons: 40 WK OB Chief Complaint: 40wk OB Lag Screwer Required: No Is patient in pain?: No Allergies No Known Allergies Allergy (Verified 10/06/24 14:04) Medications ???Medication ???Instructions ???Recorded ???Confirmed ???Type multivitamin no.47-iron fum 27 cap PO 06/01/22 10/06/24 History mg-folate no.1 1 mg-dha 300 mg capsule (PNV-DHA) Last Menstrual Period: 12/29/23 : No PFSH PFSH Family History Aunt Breast cancer, Onset Age: 40 Maternal Ovarian cancer, Onset Age: 50 Paternal Social History adopted: No household members: spouse housing: house number of children: 1 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 Back to pre weight. 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 Date Name GA/Weeks Outcome Route Bth Weight Infant Gen Labor Lgth Anesthesia Del Locatn Provider FOB 01/17/23 Emiliano 40 live - full term 8.5# Male epidural [facility] J ennifer Hayley Robles Delivery Date: 01/17/23 Last Updated by: Lisa Maya see problem list for complications. HPI 40 WK OB Details: MAYELA ARRIETA is a 24 year old who presents for routine OB visit. OB Visit JENNYFER Calculator Estimated Delivery Date Method Current WG Current Estimate 10/04/24 LMP (Certain) 40w 2d Expected Delivery Route/Plan Labor Preferences- CB/BF classes: [] labor support person: [] labor intervention preferences: [] pain management options preferred: epidural : [] PP control planned: [] discussed possible routes of delivery and associated risks: [] special requests: [] Specific Issue/Plans Covid status: [] Flu vaccine: given Tdap vaccine: given Rhogam: [] LARC form signed: declined movement and labor precautions reviewed. Problem list reviewed and updated with the most current plan of care details and appropriate orders placed. Relevant counseling for the gestational age provided. Continue routine care and follow up unless otherwise noted in visit notes/problem list details Initial Weight: Not Recorded Date -???-???-???-???-??? -???-???-???-???-??? -???-???- EGA Weight BP Urine Prot -???-???-???-???-??? -???-???-???-???-??? -???-???- Glucose FHR FuHt Pres Dilation -???-???-???-???-??? -???-???-???-???-??? -???-???- Effaced St Visit Note 03/17/24 -???-???-???-???-??? -???-???-???-???-??? -???-???- 11w 2d 136 lb 4 oz 108/68 -???-???-???-???-??? -???-???-???-???-??? -???-???- 163 -???-???-???-???-??? -???-???-???-???-??? -???-???- JV- CRL sukhwinder ures 4.18 cm. This is consistent with JENNYFER per LMP. Patient desires NIPT with gender. 04/14/24 -???-???-???-???-??? -???-???-???-???-??? -???-???- 15w 2d 140 lb 110/68 -???-???-???-???-??? -???-???-???-???-??? -???-???- 150 -???-???-???-???-??? -???-???-???-???-??? -???-???- SM- no vb cr amping SM- no vb cramping flu vaccine giv en 05/12/24 -???-???-???-???-??? -???-???-???-???-??? -???-???- 19w 2d 141 lb 92/57 Negative -???-???-???-???-??? -???-???-???-???-??? -???-???- Negative 145 -???-???-???-???-??? -???-???-???-???-??? -???-???- KW- no vb/lo f/ctx. possible fm. US next week. 06/09/24 -???-???-???-???-??? -? (more content not included)... Normal [place] Duct Layer Helper Office Visit Reporton 09-29-2024 Duct Layer Helper Office Visit Report [facility] [address], [address] [place] [address] OFFICE VISIT Date of Service: 09/29/24 MR#: [id number] Acct: [id number] Name: MAYELA ARRIETA ABDI Rep #: [id number] : 2000 Provider: Dr. Colette Reyes DO Age/Sex: 24/F [place] [facility] [place] Status: Signed Intake Vital Signs 05/12/24 10:06 09/22/24 11:26 09/29/24 13:47 09/29/24 13:49 Height 5 ft 4 in 5 ft 4 in 5 ft 4 in 5 ft 4 in Weight: 173 lb BMI 29.7 BP 110/64 Intake Visit Reasons: 39 WK OB Lag Screwer Required: No Is patient in pain?: No Allergies No Known Allergies Allergy (Verified 09/29/24 13:47) Medications ???Medication ???Instructions ???Recorded ???Confirmed ???Type multivitamin no.47-iron fum 27 cap PO 06/01/22 09/29/24 History mg-folate no.1 1 mg-dha 300 mg capsule (PNV-DHA) Last Menstrual Period: 12/29/23 Zika: Zika virus screening: Negative : No PFSH PFSH Family History Aunt Breast cancer, Onset Age: 40 Maternal Ovarian cancer, Onset Age: 50 Paternal Social History adopted: No household members: spouse housing: house number of children: 1 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 Back to pre weight. 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 Date Name GA/Weeks Outcome Route Bth Weight Gen Labor Lgth Anesthesia Del Locatn Provider FOB 01/17/23 Emiliano 40 live - full term 8.5# Male epidural [facility] J florence Hayley Robles Delivery Date: 01/17/23 Last Updated by: Lisa Maya see problem list for complications. HPI 39 WK OB Details: MAYELA ARRIETA is a 24 year old who presents for routine OB visit. OB Visit JENNYFER Calculator Estimated Delivery Date Method Current WG Current Estimate 10/04/24 LMP (Certain) 39w 2d Expected Delivery Route/Plan Labor Preferences- CB/BF classes: [] labor support person: [] labor intervention preferences: [] pain management options preferred: epidural : [] PP control planned: [] discussed possible routes of delivery and associated risks: [] special requests: [] Specific Issue/Plans Covid status: [] Flu vaccine: given Tdap vaccine: given Rhogam: [] LARC form signed: declined movement and labor precautions reviewed. Problem list reviewed and updated with the most current plan of care details and appropriate orders placed. Relevant counseling for the gestational age provided. Continue routine care and follow up unless otherwise noted in visit notes/problem list details Initial Weight: Not Recorded Date -???-???-???-???-??? -???-???-???-???-??? -???-???- EGA Weight BP Urine Prot -???-???-???-???-??? -???-???-???-???-??? -???-???- Glucose FHR FuHt Pres Dilation -???-???-???-???-??? -???-???-???-???-??? -???-???- Effaced St Visit Note 03/17/24 -???-???-???-???-??? -???-???-???-???-??? -???-???- 11w 2d 136 lb 4 oz 108/68 -???-???-???-???-??? -???-???-???-???-??? -???-???- 163 -???-???-???-???-??? -???-???-???-???-??? -???-???- JV- CRL sukhwinder ures 4.18 cm. This is consistent with JENNYFER per LMP. Patient desires NIPT with gender. 04/14/24 -???-???-???-???-??? -???-???-???-???-??? -???-???- 15w 2d 140 lb 110/68 -???-???-???-???-??? -???-???-???-???-??? -???-???- 150 -???-???-???-???-??? -???-???-???-???-??? -???-???- SM- no vb cr amping SM- no vb cramping flu vaccine giv en 05/12/24 -???-???-???-???-??? -???-???-???-???-??? -???-???- 19w 2d 141 lb 92/57 Negative -???-???-???-???-??? -???-???-???-???-??? -???-???- Negative 145 -???-???-???-???-??? -???-???-???-???-??? -???-???- KW- no vb/lo f/ctx. possible f (more content not included)... Normal [facility] - Chemistry and C hemistry - challengeOrdered By: Misa Bryan on 09-22-2024 Glucose Ql (U) Negative [facility] - UrinalysisOrder ed By: Misa Bryan on 09-22-2024 Protein Ql (U) Negative [facility] Duct Layer Helper Office Visit Reporton 09-22-2024 Duct Layer Helper Office Visit Report [facility] [address], [address] [place] [address] OFFICE VISIT Date of Service: 09/22/24 MR#: [id number] Acct: [id number] Name: MAYELA ARRIETA Rep #: [id number] : 2000 Provider: FARRAH Gamble ams Age/Sex: 24/F Location: [facility] [place] Status: Signed Intake Vital Signs 05/12/24 10:06 09/15/24 11:13 09/22/24 11:26 Height 5 ft 4 in 5 ft 4 in 5 ft 4 in Weight: 169 lb 4 oz BMI 29.0 BP 100/62 Intake Visit Reasons: 38 WK OB Chief Complaint: 38 Week OB Lag Screwer Required: No Is patient in pain?: No Allergies No Known Allergies Allergy (Verified 09/22/24 11:27) Medications ???Medication ???Instructions ???Recorded ???Confirmed ???Type multivitamin no.47-iron fum 27 cap PO 06/01/22 09/22/24 History mg-folate no.1 1 mg-dha 300 mg capsule (PNV-DHA) Last Menstrual Period: 12/29/23 Zika: Zika virus screening: Negative : No PFSH PFSH Family History Aunt Breast cancer, Onset Age: 40 Maternal Ovarian cancer, Onset Age: 50 Paternal Social History adopted: No household members: spouse housing: house number of children: 1 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 Back to pre weight. 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 Date Name GA/Weeks Outcome Route Bth Weight Infant Gen Labor Lgth Anesthesia Del Locatn Provider FOB 01/17/23 Emiliano 40 live - full term 8.5# Male epidural [facility] J florence Hayley Robles Delivery Date: 01/17/23 Last Updated by: Lisa Maya see problem list for complications. HPI 38 WK OB Details: MAYELA ARRIETA is a 24 year old who presents for routine OB visit. OB Visit JENNYFER Calculator Estimated Delivery Date Method Current WG Current Estimate 10/04/24 LMP (Certain) 38w 2d Expected Delivery Route/Plan Labor Preferences- CB/BF classes: [] labor support person: [] labor intervention preferences: [] pain management options preferred: epidural : [] PP control planned: [] discussed possible routes of delivery and associated risks: [] special requests: [] Specific Issue/Plans Covid status: [] Flu vaccine: given Tdap vaccine: given Rhogam: [] LARC form signed: declined movement and labor precautions reviewed. Problem list reviewed and updated with the most current plan of care details and appropriate orders placed. Relevant counseling for the gestational age provided. Continue routine care and follow up unless otherwise noted in visit notes/problem list details Initial Weight: Not Recorded Date -???-???-???-???-??? -???-???-???-???-??? -???-???- EGA Weight BP Urine Prot -???-???-???-???-??? -???-???-???-???-??? -???-???- Glucose FHR FuHt Pres Dilation -???-???-???-???-??? -???-???-???-???-??? -???-???- Effaced St Visit Note 03/17/24 -???-???-???-???-??? -???-???-???-???-??? -???-???- 11w 2d 136 lb 4 oz 108/68 -???-???-???-???-??? -???-???-???-???-??? -???-???- 163 -???-???-???-???-??? -???-???-???-???-??? -???-???- JV- CRL sukhwinder ures 4.18 cm. This is consistent with JENNYFER per LMP. Patient desires NIPT with gender. 04/14/24 -???-???-???-???-??? -???-???-???-???-??? -???-???- 15w 2d 140 lb 110/68 -???-???-???-???-??? -???-???-???-???-??? -???-???- 150 -???-???-???-???-??? -???-???-???-???-??? -???-???- SM- no vb cr amping SM- no vb cramping flu vaccine giv en 05/12/24 -???-???-???-???-??? -???-???-???-???-??? -???-???- 19w 2d 141 lb 92/57 Negative -???-???-???-???-??? -???-???-???-???-??? -???-???- Negative 145 -???-???-???-???-??? -???-???-???-???-??? -???-???- KW- no vb/lo f/ctx. possible f (more content not included)... Normal [facility] - Chemistry and C hemistry - challengeOrdered By: Colette Zamarripa on 09-15-2024 Glucose Ql (U) Negative [facility] - UrinalysisOrder ed By: Colette Zamarripa on 09-15-2024 Protein Ql (U) Negative [facility] Visit Reporton 09-15-2024 Duct Layer [facility]per Office Visit Report [facility] [address], [address] [place] [address] OFFICE VISIT Date of Service: 09/15/24 MR#: [id number] Acct: [id number] Name: MAYELA ARRIETA Rep #: [id number] : 2000 Provider: Dr. Colette Reyes DO Age/Sex: 24/F [place] [facility] [place]: Signed Intake Vital Signs 05/12/24 10:06 09/08/24 09:12 09/15/24 11:13 09/15/24 11:13 Height 5 ft 4 in 5 ft 4 in 5 ft 4 in 5 ft 4 in Weight: 169 lb 4 oz BMI 29.0 BP 105/68 Intake Visit Reasons: 37 WK OB Lag Screwer Required: No Is patient in pain?: No Allergies No Known Allergies Allergy (Verified 09/15/24 11:13) Medications ???Medication ???Instructions ???Recorded ???Confirmed ???Type multivitamin no.47-iron fum 27 cap PO 06/01/22 09/15/24 History mg-folate no.1 1 mg-dha 300 mg capsule (PNV-DHA) Last Menstrual Period: 12/29/23 Zika: Zika virus screening: Negative : No PFSH PFSH Family History Aunt Breast cancer, Onset Age: 40 Maternal Ovarian cancer, Onset Age: 50 Paternal Social History adopted: No household members: spouse housing: house number of children: 1 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 Back to pre weight. 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 Date Name GA/Weeks Outcome Route Bth Weight Gen Labor Lgth Anesthesia Del Locatn Provider FOB 01/17/23 Emiliano 40 live - full term 8.5# Male epidural [facility] J ennifer Hayley Robles Delivery Date: 01/17/23 Last Updated by: Lisa Maya see problem list for complications. HPI 37 WK OB Details: MAYELA ARRIETA is a 24 year old who presents for routine OB visit. OB Visit JENNYFER Calculator Estimated Delivery Date Method Current WG Current Estimate 10/04/24 LMP (Certain) 37w 2d Expected Delivery Route/Plan Labor Preferences- CB/BF classes: [] labor support person: [] labor intervention preferences: [] pain management options preferred: epidural : [] PP control planned: [] discussed possible routes of delivery and associated risks: [] special requests: [] Specific Issue/Plans Covid status: [] Flu vaccine: given Tdap vaccine: given Rhogam: [] LARC form signed: declined movement and labor precautions reviewed. Problem list reviewed and updated with the most current plan of care details and appropriate orders placed. Relevant counseling for the gestational age provided. Continue routine care and follow up unless otherwise noted in visit notes/problem list details Initial Weight: Not Recorded Date -???-???-???-???-??? -???-???-???-???-??? -???-???- EGA Weight BP Urine Prot -???-???-???-???-??? -???-???-???-???-??? -???-???- Glucose FHR FuHt Pres Dilation -???-???-???-???-??? -???-???-???-???-??? -???-???- Effaced St Visit Note 03/17/24 -???-???-???-???-??? -???-???-???-???-??? -???-???- 11w 2d 136 lb 4 oz 108/68 -???-???-???-???-??? -???-???-???-???-??? -???-???- 163 -???-???-???-???-??? -???-???-???-???-??? -???-???- JV- CRL sukhwinder ures 4.18 cm. This is consistent with JENNYFER per LMP. Patient desires NIPT with gender. 04/14/24 -???-???-???-???-??? -???-???-???-???-??? -???-???- 15w 2d 140 lb 110/68 -???-???-???-???-??? -???-???-???-???-??? -???-???- 150 -???-???-???-???-??? -???-???-???-???-??? -???-???- SM- no vb cr amping SM- no vb cramping flu vaccine giv en 05/12/24 -???-???-???-???-??? -???-???-???-???-??? -???-???- 19w 2d 141 lb 92/57 Negative -???-???-???-???-??? -???-???-???-???-??? -???-???- Negative 145 -???-???-???-???-??? -???-???-???-???-??? -???-???- KW- no vb/lo f/ctx. possi (more content not included)... Normal [facility] - Chemistry and C hemistry - challengeOrdered By: Misa Bryan on 09-08-2024 Glucose Ql (U) Negative [facility] - UrinalysisOrder ed By: Misa Bryan on 09-08-2024 Protein Ql (U) Negative [facility] Visit Reporton 09-08-2024 Duct Layer Helper Office Visit Report [facility] [address], [address] [place] [address] OFFICE VISIT Date of Service: 09/08/24 MR#: [id number] Acct: [id number] Name: MAYELA ARRIETA ABDI Rep #: [id number] : 2000 Provider: FARRAH Gamble ams Age/Sex: 24/F Location: [facility] [place] Status: Signed Intake Vital Signs 05/12/24 10:06 08/28/24 11:25 09/08/24 09:11 09/08/24 09:12 Height 5 ft 4 in 5 ft 4 in 5 ft 4 in 5 ft 4 in Weight: 167 lb 6 oz BMI 28.7 BP 104/59 L Intake Visit Reasons: 36 WK OB Chief Complaint: 36wk ob Is patient in pain?: No Allergies No Known Allergies Allergy (Verified 09/08/24 09:11) Medications ???Medication ???Instructions ???Recorded ???Confirmed ???Type multivitamin no.47-iron fum 27 cap PO 06/01/22 09/08/24 History mg-folate no.1 1 mg-dha 300 mg capsule (PNV-DHA) Last Menstrual Period: 12/29/23 : No PFSH PFSH Family History Aunt Breast cancer, Onset Age: 40 Maternal Ovarian cancer, Onset Age: 50 Paternal Social History adopted: No household members: spouse housing: house number of children: 1 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 Back to pre weight. 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 Date Name GA/Weeks Outcome Route Bth Weight Gen Labor Lgth Anesthesia Del Locatn Provider FOB 01/17/23 Emiliano 40 live - full term 8.5# Male epidural [facility] J florence Berger Travis Delivery Date: 01/17/23 Last Updated by: Lisa Maya see problem list for complications. HPI 36 WK OB Details: MAYELA ARRIETA is a 24 year old who presents for routine OB visit. OB Visit JENNYFER Calculator Estimated Delivery Date Method Current WG Current Estimate 10/04/24 LMP (Certain) 36w 2d Expected Delivery Route/Plan Labor Preferences- CB/BF classes: [] labor support person: [] labor intervention preferences: [] pain management options preferred: epidural : [] PP control planned: [] discussed possible routes of delivery and associated risks: [] special requests: [] Specific Issue/Plans Covid status: [] Flu vaccine: given Tdap vaccine: given Rhogam: [] LARC form signed: declined movement and labor precautions reviewed. Problem list reviewed and updated with the most current plan of care details and appropriate orders placed. Relevant counseling for the gestational age provided. Continue routine care and follow up unless otherwise noted in visit notes/problem list details Initial Weight: Not Recorded Date -???-???-???-???-??? -???-???-???-???-??? -???-???- EGA Weight BP Urine Prot -???-???-???-???-??? -???-???-???-???-??? -???-???- Glucose FHR FuHt Pres Dilation -???-???-???-???-??? -???-???-???-???-??? -???-???- Effaced St Visit Note 03/17/24 -???-???-???-???-??? -???-???-???-???-??? -???-???- 11w 2d 136 lb 4 oz 108/68 -???-???-???-???-??? -???-???-???-???-??? -???-???- 163 -???-???-???-???-??? -???-???-???-???-??? -???-???- JV- CRL sukhwinder ures 4.18 cm. This is consistent with JENNYFER per LMP. Patient desires NIPT with gender. 04/14/24 -???-???-???-???-??? -???-???-???-???-??? -???-???- 15w 2d 140 lb 110/68 -???-???-???-???-??? -???-???-???-???-??? -???-???- 150 -???-???-???-???-??? -???-???-???-???-??? -???-???- SM- no vb cr amping SM- no vb cramping flu vaccine giv en 05/12/24 -???-???-???-???-??? -???-???-???-???-??? -???-???- 19w 2d 141 lb 92/57 Negative -???-???-???-???-??? -???-???-???-???-??? -???-???- Negative 145 -???-???-???-???-??? -???-???-???-???-??? -???-???- KW- no vb/lo f/ctx. possible fm. US next week. 06/09/24 -???-???-???-???-??? (more content not included)... Normal [facility] - Chemistry and C hemistry - challengeOrdered By: Colette Zamarripa on 08-28-2024 Glucose Ql (U) Negative [facility] - UrinalysisOrder ed By: Colette Zamarripa on 08-28-2024 Protein Ql (U) Negative [facility] Visit Reporton 08-28-2024 Duct Layer Helper Office Visit Report [facility] [address], [address] [place] [address] OFFICE VISIT Date of Service: 08/28/24 MR#: [id number] Acct: [id number] Name: MAYELA ARRIETA ABDI Rep #: [id number] : 2000 Provider: Dr. Colette Reyes DO Age/Sex: 24/F Location: [facility] [place] Status: Signed Intake Vital Signs 05/12/24 10:06 08/14/24 15:31 08/28/24 11:24 08/28/24 11:25 Height 5 ft 4 in 5 ft 4 in 5 ft 4 in 5 ft 4 in Weight: 167 lb 2 oz BMI 28.7 BP 106/64 Intake Visit Reasons: 34 WK OB Lag Screwer Required: No Is patient in pain?: No Allergies No Known Allergies Allergy (Verified 08/28/24 11:24) Medications ???Medication ???Instructions ???Recorded ???Confirmed ???Type multivitamin no.47-iron fum 27 cap PO 06/01/22 08/28/24 History mg-folate no.1 1 mg-dha 300 mg capsule (PNV-DHA) Last Menstrual Period: 12/29/23 Zika: Zika virus screening: Negative : No PFSH PFSH Family History Aunt Breast cancer, Onset Age: 40 Maternal Ovarian cancer, Onset Age: 50 Paternal Social History adopted: No household members: spouse housing: house number of children: 1 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 Back to pre weight. 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 Date Name GA/Weeks Outcome Route Bth Weight Gen Labor Lgth Anesthesia Del Locatn Provider FOB 01/17/23 Emiliano 40 live - full term 8.5# Male epidural [facility] J florence Gonzalez Delivery Date: 01/17/23 Last Updated by: Lisa Maya see problem list for complications. HPI 34 WK OB Details: MAYELA ARRIETA is a 24 year old who presents for routine OB visit. OB Visit JENNYFER Calculator Estimated Delivery Date Method Current WG Current Estimate 10/04/24 LMP (Certain) 34w 5d Expected Delivery Route/Plan Labor Preferences- CB/BF classes: [] labor support person: [] labor intervention preferences: [] pain management options preferred: epidural : [] PP control planned: [] discussed possible routes of delivery and associated risks: [] special requests: [] Specific Issue/Plans Covid status: [] Flu vaccine: given Tdap vaccine: given Rhogam: [] LARC form signed: declined movement and labor precautions reviewed. Problem list reviewed and updated with the most current plan of care details and appropriate orders placed. Relevant counseling for the gestational age provided. Continue routine care and follow up unless otherwise noted in visit notes/problem list details Initial Weight: Not Recorded Date -???-???-???-???-??? -???-???-???-???-??? -???-???- EGA Weight BP Urine Prot -???-???-???-???-??? -???-???-???-???-??? -???-???- Glucose FHR FuHt Pres Dilation -???-???-???-???-??? -???-???-???-???-??? -???-???- Effaced St Visit Note 03/17/24 -???-???-???-???-??? -???-???-???-???-??? -???-???- 11w 2d 136 lb 4 oz 108/68 -???-???-???-???-??? -???-???-???-???-??? -???-???- 163 -???-???-???-???-??? -???-???-???-???-??? -???-???- JV- CRL sukhwinder ures 4.18 cm. This is consistent with JENNYFER per LMP. Patient desires NIPT with gender. 04/14/24 -???-???-???-???-??? -???-???-???-???-??? -???-???- 15w 2d 140 lb 110/68 -???-???-???-???-??? -???-???-???-???-??? -???-???- 150 -???-???-???-???-??? -???-???-???-???-??? -???-???- SM- no vb cr amping SM- no vb cramping flu vaccine giv en 05/12/24 -???-???-???-???-??? -???-???-???-???-??? -???-???- 19w 2d 141 lb 92/57 Negative -???-???-???-???-??? -???-???-???-???-??? -???-???- Negative 145 -???-???-???-???-??? -???-???-???-???-??? -???-???- KW- no vb/lo f/ctx. possi (more content not included)... Normal [facility] - Chemistry and C hemistry - challengeOrdered By: Debora Milan on 08-14-2024 Glucose Ql (U) Negative [facility] - UrinalysisOrder ed By: Debora Milan on 08-14-2024 Protein Ql (U) Negative [facility] Visit Reporton 08-14-2024 Duct Layer Helper Office Visit Report [facility] [address], [address] [place] [address] OFFICE VISIT Date of Service: 08/14/24 MR#: [id number] Acct: [id number] Name: MAYELA ARRIETA Rep #: [id number] : 2000 Provider: Dr. Debora wong MD Age/Sex: 24/F [place] [facility] [place] Status: Signed Intake Vital Signs 05/12/24 10:06 08/01/24 16:11 08/14/24 15:28 08/14/24 15:31 Height 5 ft 4 in 5 ft 4 in 5 ft 4 in 5 ft 4 in Weight: 161 lb 4 oz BMI 27.6 BP 101/65 Intake Visit Reasons: 32 WK OB Lag Screwer Required: No Is patient in pain?: No Feel stressed/tense/nervo us/anxious/difficult y sleeping: not at all Allergies No Known Allergies Allergy (Verified 08/14/24 15:28) Medications ???Medication ???Instructions ???Recorded ???Confirmed ???Type multivitamin no.47-iron fum 27 cap PO 06/01/22 08/14/24 History mg-folate no.1 1 mg-dha 300 mg capsule (PNV-DHA) Last Menstrual Period: 12/29/23 Zika: Zika virus screening: Negative : No PFSH PFSH Family History Aunt Breast cancer, Onset Age: 40 Maternal Ovarian cancer, Onset Age: 50 Paternal Social History adopted: No household members: spouse housing: house number of children: 1 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 Back to pre weight. 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 Date Name GA/Weeks Outcome Route Bth Weight Gen Labor Lgth Anesthesia Del Locatn Provider FOB 01/17/23 Emiliano 40 live - full term 8.5# Male epidural [facility] J enjakubfer Hayley Robles Delivery Date: 01/17/23 Last Updated by: Lisa Maya see problem list for complications. HPI 32 WK OB Details: MAYELA ARRIETA is a 24 year old who presents for routine OB visit. OB Visit JENNYFER Calculator Estimated Delivery Date Method Current WG Current Estimate 10/04/24 LMP (Certain) 32w 5d Expected Delivery Route/Plan Labor Preferences- CB/BF classes: [] labor support person: [] labor intervention preferences: [] pain management options preferred: epidural : [] PP control planned: [] discussed possible routes of delivery and associated risks: [] special requests: [] Specific Issue/Plans Covid status: [] Flu vaccine: given Tdap vaccine: given Rhogam: [] LARC form signed: declined movement and labor precautions reviewed. Problem list reviewed and updated with the most current plan of care details and appropriate orders placed. Relevant counseling for the gestational age provided. Continue routine care and follow up unless otherwise noted in visit notes/problem list details Initial Weight: Not Recorded Date -???-???-???-???-??? -???-???-???-???-??? -???-???- EGA Weight BP Urine Prot -???-???-???-???-??? -???-???-???-???-??? -???-???- Glucose FHR FuHt Pres Dilation -???-???-???-???-??? -???-???-???-???-??? -???-???- Effaced St Visit Note 03/17/24 -???-???-???-???-??? -???-???-???-???-??? -???-???- 11w 2d 136 lb 4 oz 108/68 -???-???-???-???-??? -???-???-???-???-??? -???-???- 163 -???-???-???-???-??? -???-???-???-???-??? -???-???- JV- CRL sukhwinder ures 4.18 cm. This is consistent with JENNYFER per LMP. Patient desires NIPT with gender. 04/14/24 -???-???-???-???-??? -???-???-???-???-??? -???-???- 15w 2d 140 lb 110/68 -???-???-???-???-??? -???-???-???-???-??? -???-???- 150 -???-???-???-???-??? -???-???-???-???-??? -???-???- SM- no vb cr amping SM- no vb cramping flu vaccine giv en 05/12/24 -???-???-???-???-??? -???-???-???-???-??? -???-???- 19w 2d 141 lb 92/57 Negative -???-???-???-???-??? -???-???-???-???-??? -???-???- Negative 145 -???-???-???-?? (more content not included)... Normal [facility] - Chemistry and C hemistry - challengeOrdered By: Pamela Cortez on 08-01-2024 Glucose Ql (U) Negative [facility] - UrinalysisOrder ed By: Pamela Cortez on 08-01-2024 Protein Ql (U) Negative [facility] Visit Reporton 08-01-2024 Duct Layer Helper Office Visit Report [facility] [address], [address] [place] [address] OFFICE VISIT Date of Service: 08/01/24 MR#: [id number] Acct: [id number] Name: DEONMAYELA Hayward ABDI Rep #: [id number] : 2000 Provider: FARRAH romero Age/Sex: 24/F Location: [facility] [place] Status: Signed Intake Vital Signs 05/12/24 10:06 07/07/24 09:36 08/01/24 16:11 08/01/24 16:11 Height 5 ft 4 in 5 ft 4 in 5 ft 4 in 5 ft 4 in Weight: 160 lb 4 oz BMI 27.5 BP 109/69 Intake Visit Reasons: 30 WK OB Lag Screwer Required: No Is patient in pain?: No Allergies No Known Allergies Allergy (Verified 08/01/24 16:10) Medications ???Medication ???Instructions ???Recorded ???Confirmed ???Type multivitamin no.47-iron fum 27 cap PO 06/01/22 08/01/24 History mg-folate no.1 1 mg-dha 300 mg capsule (PNV-DHA) Last Menstrual Period: 12/29/23 Zika: Zika virus screening: Negative : Yes Have you fallen in the past year?: No PFSH PFSH Family History Aunt Breast cancer, Onset Age: 40 Maternal Ovarian cancer, Onset Age: 50 Paternal Social History adopted: No household members: spouse housing: house number of children: 1 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 Back to pre weight. 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 Date Name GA/Weeks Outcome Route Bth Weight Gen Labor Lgth Anesthesia Del Locatn Provider FOB 01/17/23 Emiliano 40 live - full term 8.5# Male epidural [facility] J florence Hayley Robles Delivery Date: 01/17/23 Last Updated by: Lisa Maya see problem list for complications. HPI 30 WK OB Details: MAYELA ARRIETA is a 24 year old who presents for routine OB visit. OB Visit JENNYFER Calculator Estimated Delivery Date Method Current WG Current Estimate 10/04/24 LMP (Certain) 30w 6d Expected Delivery Route/Plan Labor Preferences- CB/BF classes: [] labor support person: [] labor intervention preferences: [] pain management options preferred: [] cut cord/dad catch: [] : [] PP control planned: [] discussed possible routes of delivery and associated risks: [] special requests: [] Specific Issue/Plans Covid status: [] Flu vaccine: given Tdap vaccine: [] Rhogam: [] LARC form signed: [] Problem list reviewed and updated with the most current plan of care details and appropriate orders placed. Relevant counseling for the gestational age provided. Continue routine care and follow up unless otherwise noted in visit notes/problem list details Initial Weight: Not Recorded Date -???-???-???-???-??? -???-???-???-???-??? -???-???- EGA Weight BP Urine Prot -???-???-???-???-??? -???-???-???-???-??? -???-???- Glucose FHR FuHt Pres Dilation -???-???-???-???-??? -???-???-???-???-??? -???-???- Effaced St Visit Note 03/17/24 -???-???-???-???-??? -???-???-???-???-??? -???-???- 11w 2d 136 lb 4 oz 108/68 -???-???-???-???-??? -???-???-???-???-??? -???-???- 163 -???-???-???-???-??? -???-???-???-???-??? -???-???- JV- CRL sukhwinder ures 4.18 cm. This is consistent with JENNYFER per LMP. Patient desires NIPT with gender. 04/14/24 -???-???-???-???-??? -???-???-???-???-??? -???-???- 15w 2d 140 lb 110/68 -???-???-???-???-??? -???-???-???-???-??? -???-???- 150 -???-???-???-???-??? -???-???-???-???-??? -???-???- SM- no vb cr amping SM- no vb cramping flu vaccine giv en 05/12/24 -???-???-???-???-??? -???-???-???-???-??? -???-???- 19w 2d 141 lb 92/57 Negative -???-???-???-???-??? -???-???-???-???-??? -???-???- Negative 145 -???-???-???-???-??? -???-???-???-???-??? -???-???- KW- no vb/lo f/ctx. possible fm. US next week. (more content not included)... Normal [facility] HIV - [facility] 07-09-2024 HIV Non-Reactive Normal Nonreactive [facility] Comment on above: Performed By: #### L 3890.6005, L100.0100, L501.0250, L509.8000 ####[facility] [address] [place], [place], [id number] Absolute neutrophil countOrd ered By: Misa Bryan on 07-07-2024 Neutrophils (Bld) [#/Vol] 9.2 10*3/uL High 2.0-7.7 [facility] Basophil percentageOrdered B y: Misa Bryan on 07-07-2024 Basophils/100 WBC (Bld) 0.5 % 0-1 [facility] CBC W/Diff, Automatedon - Absolute Lymph 2.09 X10 3/uL Normal 0.83-4.51 [facility] Comment on above: Performed By: #### L 3890.6005, L100.0100, L501.0250, L509.8000 ####[facility] [address] [place], [address] Absolute Neut 9.2 X10 3/uL High 2.0-7.7 [facility] Comment on above: Performed By: #### L 3890.6005, L100.0100, L501.0250, L509.8000 ####[facility] [address] [place], [address] Basophils/100 WBC (Bld) 0.5 % Normal 0-1 [facility] Comment on above: Performed By: #### L 3890.6005, L100.0100, L501.0250, L509.8000 ####[facility] [address] [place], [address] Eosinophils/100 WBC (Bld) 0.7 % Normal 0-5 [facility] Comment on above: Performed By: #### L 3890.6005, L100.0100, L501.0250, L509.8000 ####[facility] [address] [place], [address] Erythrocyte distribution width (RBC) [Ratio] 12.8 % Normal 11.6-14.6 [facility] Comment on above: Performed By: #### L 3890.6005, L100.0100, L501.0250, L509.8000 ####[facility] [address] [place], [address] Hematocrit (Bld) [Volume fraction] 35.6 % Low 37-47 [facility] Comment on above: Performed By: #### L 3890.6005, L100.0100, L501.0250, L509.8000 ####[facility] [address] [place], [address] Hemoglobin (Bld) [Mass/Vol] 11.3 g/dL Low 12.0-15.0 [facility] Comment on above: Performed By: #### L 3890.6005, L100.0100, L501.0250, L509.8000 ####[facility] [address] [place], [address] IG% 3.800 High 0.0-0.9 [facility] Comment on above: Result Comment: IG% - Immature Granulocytes (promyelocytes, myelocytes and metamyelocytes) > 1% indicates that a LEFT SHIFT is Present. Performed By: #### L 3890.6005, L100.0100, L501.0250, L509.8000 ####[facility] [address] [place], [address] Lymphocytes/100 WBC (Bld) 16.7 % Low 19-41 [facility] Comment on above: Performed By: #### L 3890.6005, L100.0100, L501.0250, L509.8000 ####[facility] [address] [place], [address] MCH (RBC) [Entitic mass] 28.3 pg Normal 27.0-32.0 [facility] Comment on above: Performed By: #### L 3890.6005, L100.0100, L501.0250, L509.8000 ####[facility] [address] [place], [address] MCHC (RBC) [Mass/Vol] 31.7 g/dL Low 32-36 [facility] Comment on above: Performed By: #### L 3890.6005, L100.0100, L501.0250, L509.8000 ####[facility] [address] [place], [address] MCV (RBC) [Entitic vol] 89.2 fL Normal 81-99 [facility] Comment on above: Performed By: #### L 3890.6005, L100.0100, L501.0250, L509.8000 ####[facility] [address] [place], [address] Monocytes/100 WBC (Bld) 5.1 % Normal 0-10 [facility] Comment on above: Performed By: #### L 3890.6005, L100.0100, L501.0250, L509.8000 ####[facility] [address] [place], [address] Neutrophils/100 WBC (Bld) 73.2 % High 47-70 [facility] Comment on above: Performed By: #### L 3890.6005, L100.0100, L501.0250, L509.8000 ####[facility] [address] [place], [address] Nucleated RBC (Bld) [#/Vol] 0 10*3/uL Normal 0-5 [facility] Comment on above: Performed By: #### L 3890.6005, L100.0100, L501.0250, L509.8000 ####[facility] [address] [place], [address] Platelet mean volume (Bld) [Entitic vol] 10.0 fL Normal 6.2-12.0 [facility] Comment on above: Performed By: #### L 3890.6005, L100.0100, L501.0250, L509.8000 ####[facility] [address] [place], [address] Platelets (Bld) [#/Vol] 263 10*3/uL Normal 150-450 [facility] Comment on above: Performed By: #### L 3890.6005, L100.0100, L501.0250, L509.8000 ####[facility] [address] [place], [address] RBC (Bld) [#/Vol] 3.99 10*6/uL Low 4.2-5.4 [facility] Comment on above: Performed By: #### L 3890.6005, L100.0100, L501.0250, L509.8000 ####[facility] [address] [place], [address] RDW SD 41.5 fl Normal 35.1-43.9 [facility] Comment on above: Performed By: #### L 3890.6005, L100.0100, L501.0250, L509.8000 ####[facility] [address] [place], [address] WBC (Bld) [#/Vol] 12.5 10*3/uL High 4.4-11.0 [facility] Comment on above: Performed By: #### L 3890.6005, L100.0100, L501.0250, L509.8000 ####[facility] [address] [place], [address] Eosinophil percentageOrdered By: Misa Bryan on 07-07-2024 Eosinophils/100 WBC (Bld) 0.7 % 0-5 [facility] Erythrocyte distribution wid th (RBC) [Ratio]Ordered By: Misa Bryan on 07-07-2024 Erythrocyte distribution width (RBC) [Entitic vol] 41.5 fL 35.1-43.9 [facility] Erythrocyte distribution wid th ratioOrdered By: Misa Bryan on 07-07-2024 Erythrocyte distribution width (RBC) [Ratio] 12.8 % 11.6-14.6 [facility] Glucose 1 Hr post 50 g gluco se PO [Mass/Vol]Ordered By: Misa Bryan on 07-07-2024 Glucose [Mass/Vol] 80 mg/dL 70-[address] [facility] Glucose Challenge Gest 1H 50 lolis 07-07-2024 GLU GEST 50g 1H 80 mg/dL Normal 70-140 [facility] Comment on above: Performed By: #### L 3890.6005, L100.0100, L501.0250, L509.8000 ####[facility] [address] [place], [place], [id number] HIV 1+2 Ab+HIV1 p24 Ag IA Ql Ordered By: Misa Bryan on 07-07-2024 HIV (1&2) Antibody Non-Reactive Nonreactive [facility] Hematocrit Auto (Bld) [Volum e fraction]Ordered By: Misa Bryan on 07-07-2024 Hematocrit (Bld) [Volume fraction] 35.6 % Low 37-47 [facility] Hemoglobin measurementOrdere d By: Misa Bryan on 07-07-2024 Hemoglobin (Bld) [Mass/Vol] 11.3 g/dL Low 12.0-15.0 [facility] Immature granulocytes/100 WB C Auto (Bld)Ordered By: Misa Bryan on 07-07-2024 Immature granulocytes/100 WBC (Bld) 3.800 % High 0.0-0.9 [facility] Comment on above: IG% - Immature Granu locytes (promyelocytes, myelocytes and metamyelocytes) > 1% indicates that a LEFT SHIFT is Present. L509.8000on 07-07-2024 Syphilis Abs Non-Reactive Normal [facility] Comment on above: Performed By: #### L 3890.6005, L100.0100, L501.0250, L509.8000 ####[facility] [address] [place], [place], [address] Laboratory - Chemistry and C hemistry - challengeon 07-07-2024 Glucose Ql (U) Negative [facility] - Urinalysison Protein Ql (U) Negative [facility] Lymphocytes Auto (Unsp spec) [#/Vol]Ordered By: Misa Bryan on 07-07-2024 Lymphocytes (Bld) [#/Vol] 2.09 10*3/uL 0.83-4.51 [facility] Lymphocytes/100 WBC Auto (Un sp spec)Ordered By: Misa Bryan on 07-07-2024 Lymphocytes/100 WBC (Bld) 16.7 % Low 19-41 [facility] MCV (mean corpuscular volume ) determinationOrdered By: Misa Bryan on 01-13-2025 MCV (RBC) [Entitic vol] 89.2 fL 81-99 [facility] Mean corpuscular hemoglobin (MCH) determinationOrdered By: Misa Bryan on 07-07-2024 MCH (RBC) [Entitic mass] 28.3 pg 27.0-32.0 [facility] Mean corpuscular hemoglobin concentration (MCHC) determinationOrdered By: Misa Bryan on 07-07-2024 MCHC (RBC) [Mass/Vol] 31.7 g/dL Low 32-36 [facility] Mean platelet volume determi nationOrdered By: Misa Bryan on 07-07-2024 Platelet mean volume (Bld) [Entitic vol] 10.0 fL 6.2-12.0 [facility] Monocyte percentageOrdered B y: Misa Bryan on 07-07-2024 Monocytes/100 WBC (Bld) 5.1 % 0-10 [facility] Neutrophil percentageOrdered By: Misa Bryan on 07-07-2024 Neutrophils/100 WBC (Bld) 73.2 % High 47-70 [facility] Nucleated red blood cell per centageOrdered By: Misa Bryan on 07-07-2024 Nucleated RBC/100 WBC (Bld) [Ratio] 0 % 0-5 [facility] Duct Layer Helper Office Visit Reporton 07-07-2024 Duct Layer Helper Office Visit Report [facility] [address], [facility] [address] [place] [address] OFFICE VISIT Date of Service: 07/07/24 MR#: [id number] Acct: [id number] Name: MAYELA ARRIETA Rep #: [id number] : 2000 Provider: FARRAH Gamble ams Age/Sex: 24/F [place] [facility] [place] Status: Signed Intake Vital Signs 05/12/24 10:06 06/09/24 09:46 07/07/24 09:36 Height 5 ft 4 in 5 ft 4 in 5 ft 4 in Weight: 155 lb BMI 26.6 BP 112/69 Blood Pressure Location Lt brachial Position Sitting Intake Visit Reasons: 27 WK OB/ GLUCOSE Lag Screwer Required: No Accompanied by: Self Is patient in pain?: No Allergies No Known Allergies Allergy (Verified 07/07/24 09:42) Medications ???Medication ???Instructions ???Recorded ???Confirmed ???Type multivitamin no.47-iron fum 27 cap PO 06/01/22 07/07/24 History mg-folate no.1 1 mg-dha 300 mg capsule (PNV-DHA) Last Menstrual Period: 12/29/23 Zika: Zika virus screening: Negative : Yes Nurse's Note: intermittent pubic area sharp pain especially when laying on right side. 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 Back to pre weight. 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 Date Name GA/Weeks Outcome Route Bth Weight Infant Gen Labor Lgth Anesthesia Del Locatn Provider FOB 01/17/23 Emiliano 40 live - full term 8.5# Male epidural [facility] J florence Hayley Robles Delivery Date: 01/17/23 Last Updated by: Lisa Maya see problem list for complications. HPI 27 WK OB/ GLUCOSE Details: MAYELA ARRIETA is a 24 year old who presents for routine OB visit. OB Visit JENNYFER Calculator Estimated Delivery Date Method Current WG Current Estimate 10/04/24 LMP (Certain) 27w 2d Expected Delivery Route/Plan Labor Preferences- CB/BF classes: [] labor support person: [] labor intervention preferences: [] pain management options preferred: [] cut cord/dad catch: [] : [] PP control planned: [] discussed possible routes of delivery and associated risks: [] special requests: [] Specific Issue/Plans Covid status: [] Flu vaccine: given Tdap vaccine: [] Rhogam: [] LARC form signed: [] Problem list reviewed and updated with the most current plan of care details and appropriate orders placed. Relevant counseling for the gestational age provided. Continue routine care and follow up unless otherwise noted in visit notes/problem list details Initial Weight: Not Recorded Date -???-???-???-???-??? -???-???-???-???-??? -???-???- EGA Weight BP Urine Prot -???-???-???-???-??? -???-???-???-???-??? -???-???- Glucose FHR FuHt Pres Dilation -???-???-???-???-??? -???-???-???-???-??? -???-???- Effaced St Visit Note 03/17/24 -???-???-???-???-??? -???-???-???-???-??? -???-???- 11w 2d 136 lb 4 oz 108/68 -???-???-???-???-??? -???-???-???-???-??? -???-???- 163 -???-???-???-???-??? -???-???-???-???-??? -???-???- JV- CRL sukhwinder ures 4.18 cm. This is consistent with JENNYFER per LMP. Patient desires NIPT with gender. 04/14/24 -???-???-???-???-??? -???-???-???-???-??? -???-???- 15w 2d 140 lb 110/68 -???-???-???-???-??? -???-???-???-???-??? -???-???- 150 -???-???-???-???-??? -???-???-???-???-??? -???-???- SM- no vb cr amping SM- no vb cramping flu vaccine giv en 05/12/24 -???-???-???-???-??? -???-???-???-???-??? -???-???- 19w 2d 141 lb 92/57 Negative -???-???-???-???-??? -???-???-???-???- (more content not included)... Normal [facility] Platelet countOrdered By: Iván Bryan on 07-07-2024 Platelets (Bld) [#/Vol] 263 10*3/uL 150-450 [facility] RBC Auto (Bld) [#/Vol]Ordere d By: Misa Bryan on 07-07-2024 RBC (Bld) [#/Vol] 3.99 10*6/uL Low 4.2-5.4 [facility] Treponema sp Ab Ql (S)Ordere d By: Misa Bryan on 07-07-2024 Syphilis Total Antibody Non-Reactive [facility] White blood cell (WBC) count Ordered By: Misa Bryan on 07-07-2024 WBC (Bld) [#/Vol] 12.5 10*3/uL High 4.4-11.0 [facility] Duct Layer Helper Office Visit Reporton 06-09-2024 Duct Layer Helper Office Visit Report [facility]'s [address], [address] [place] [address] OFFICE VISIT Date of Service: 06/09/24 MR#: [id number] Acct: [id number] Name: MAYELA ARRIETA Rep #: [id number] : 2000 Provider: FARRAH Gamble ams Age/Sex: 24/F [place] [facility] [place] Status: Signed Intake Vital Signs 03/17/24 10:43 05/12/24 10:06 06/09/24 09:41 06/09/24 09:46 Height 5 ft 4 in 5 ft 4 in 5 ft 4 in 5 ft 4 in Weight: 149 lb BMI 25.5 BP 101/67 Intake Visit Reasons: 23 WK OB Lag Screwer Required: No Is patient in pain?: No Allergies No Known Allergies Allergy (Verified 06/09/24 09:41) Medications ???Medication ???Instructions ???Recorded ???Confirmed ???Type multivitamin no.47-iron fum 27 cap PO 06/01/22 06/09/24 History mg-folate no.1 1 mg-dha 300 mg capsule (PNV-DHA) Last Menstrual Period: 12/29/23 Zika: Zika virus screening: Negative : Yes Have you fallen in the past year?: No PFSH PFSH Family History Aunt Breast cancer, Onset Age: 40 Maternal Ovarian cancer, Onset Age: 50 Paternal Social History adopted: No household members: spouse housing: house number of children: 1 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 Back to pre weight. 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 Date Name GA/Weeks Outcome Route Bth Weight Gen Labor Lgth Anesthesia Del Locatn Provider FOB 01/17/23 Emiliano 40 live - full term 8.5# Male epidural [facility] enramon Hayley Robles Delivery Date: 01/17/23 Last Updated by: Lisa Maya see problem list for complications. HPI 23 WK OB Details: MAYELA ARRIETA is a 24 year old who presents for routine OB visit. OB Visit JENNYFER Calculator Estimated Delivery Date Method Current WG Current Estimate 10/04/24 LMP (Certain) 23w 2d Expected Delivery Route/Plan Labor Preferences- CB/BF classes: [] labor support person: [] labor intervention preferences: [] pain management options preferred: [] cut cord/dad catch: [] : [] PP control planned: [] discussed possible routes of delivery and associated risks: [] special requests: [] Specific Issue/Plans Covid status: [] Flu vaccine: given Tdap vaccine: [] Rhogam: [] LARC form signed: [] Problem list reviewed and updated with the most current plan of care details and appropriate orders placed. Relevant counseling for the gestational age provided. Continue routine care and follow up unless otherwise noted in visit notes/problem list details Initial Weight: Not Recorded Date -???-???-???-???-??? -???-???-???-???-??? -???-???- EGA Weight BP Urine Prot -???-???-???-???-??? -???-???-???-???-??? -???-???- Glucose FHR FuHt Pres Dilation -???-???-???-???-??? -???-???-???-???-??? -???-???- Effaced St Visit Note 03/17/24 -???-???-???-???-??? -???-???-???-???-??? -???-???- 11w 2d 136 lb 4 oz 108/68 -???-???-???-???-??? -???-???-???-???-??? -???-???- 163 -???-???-???-???-??? -???-???-???-???-??? -???-???- JV- CRL sukhwinder ures 4.18 cm. This is consistent with JENNYFER per LMP. Patient desires NIPT with gender. 04/14/24 -???-???-???-???-??? -???-???-???-???-??? -???-???- 15w 2d 140 lb 110/68 -???-???-???-???-??? -???-???-???-???-??? -???-???- 150 -???-???-???-???-??? -???-???-???-???-??? -???-???- SM- no vb cr amping SM- no vb cramping flu vaccine giv en 05/12/24 -???-???-???-???-??? -???-???-???-???-??? -???-???- 19w 2d 141 lb 92/57 Negative -???-???-???-???-??? -???-???-???-???-??? -???-???- Negative 145 -???-???-???-???-??? -???-???-???-???-??? -???-???- KW- no vb/lo f/ctx. possible fm. US next week. (more content not included)... Normal [facility] Duct Layer Helper Office Visit Reporton 05-12-2024 Duct Layer Helper Office Visit Report [facility] [address], [address] [place] [address] OFFICE VISIT Date of Service: 05/12/24 MR#: [id number] Acct: [id number] Name: MAYELA ARRIETA Rep #: [id number] : 2000 Provider: FARRAH Gamble ams Age/Sex: 24/F [place] [facility] [place] Status: Signed Intake Vital Signs 03/17/24 10:43 04/14/24 09:18 05/12/24 10:02 05/12/24 10:06 Height 5 ft 4 in 5 ft 4 in 5 ft 4 in 5 ft 4 in Weight: 141 lb BMI 24.2 BP 92/57 L Intake Visit Reasons: 19 WK OB Lag Screwer Required: No Is patient in pain?: No Allergies No Known Allergies Allergy (Verified 05/12/24 10:02) Medications ???Medication ???Instructions ???Recorded ???Confirmed ???Type multivitamin no.47-iron fum 27 cap PO 06/01/22 05/12/24 History mg-folate no.1 1 mg-dha 300 mg capsule (PNV-DHA) Last Menstrual Period: 12/29/23 Zika: Zika virus screening: Negative : Yes Have you fallen in the past year?: No PFSH PFSH Family History Aunt Breast cancer, Onset Age: 40 Maternal Ovarian cancer, Onset Age: 50 Paternal Social History adopted: No household members: spouse housing: house number of children: 1 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 Back to pre weight. 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 Date Name GA/Weeks Outcome Route Bth Weight Gen Labor Lgth Anesthesia Del Locatn Provider FOB 01/17/23 Emiliano 40 live - full term 8.5# Male epidural [facility] J florence Berger Travis Delivery Date: 01/17/23 Last Updated by: Lisa Maya see problem list for complications. HPI 19 WK OB Details: MAYELA ARRIETA is a 24 year old who presents for routine OB visit. OB Visit JENNYFER Calculator Estimated Delivery Date Method Current WG Current Estimate 10/04/24 LMP (Certain) 19w 2d Expected Delivery Route/Plan Labor Preferences- CB/BF classes: [] labor support person: [] labor intervention preferences: [] pain management options preferred: [] cut cord/dad catch: [] : [] PP control planned: [] discussed possible routes of delivery and associated risks: [] special requests: [] Specific Issue/Plans Covid status: [] Flu vaccine: given Tdap vaccine: [] Rhogam: [] LARC form signed: [] Problem list reviewed and updated with the most current plan of care details and appropriate orders placed. Relevant counseling for the gestational age provided. Continue routine care and follow up unless otherwise noted in visit notes/problem list details Initial Weight: Not Recorded Date -???-???-???-???-??? -???-???-???-???-??? -???-???- EGA Weight BP Urine Prot -???-???-???-???-??? -???-???-???-???-??? -???-???- Glucose FHR FuHt Pres Dilation -???-???-???-???-??? -???-???-???-???-??? -???-???- Effaced St Visit Note 03/17/24 -???-???-???-???-??? -???-???-???-???-??? -???-???- 11w 2d 136 lb 4 oz 108/68 -???-???-???-???-??? -???-???-???-???-??? -???-???- 163 -???-???-???-???-??? -???-???-???-???-??? -???-???- JV- CRL sukhwinder ures 4.18 cm. This is consistent with JENNYFER per LMP. Patient desires NIPT with gender. 04/14/24 -???-???-???-???-??? -???-???-???-???-??? -???-???- 15w 2d 140 lb 110/68 -???-???-???-???-??? -???-???-???-???-??? -???-???- 150 -???-???-???-???-??? -???-???-???-???-??? -???-???- SM- no vb cr amping SM- no vb cramping flu vaccine giv en 05/12/24 -???-???-???-???-??? -???-???-???-???-??? -???-???- 19w 2d 141 lb 92/57 -???-???-???-???-??? -???-???-???-???-??? -???-???- 145 -???-???-???-???-??? -???-???-???-???-??? -???-???- KW- no vb/lo f/ctx. possible fm. US next week. ACOG Fir (more content not included)... Normal [place] Duct Layer Helper Office Visit Reporton 04-14-2024 Duct Layer Helper Office Visit Report [facility]'[address], [address] [place] [address] OFFICE VISIT Date of Service: 04/14/24 MR#: [id number] Acct: [id number] Name: MAYELA ARRIETA Rep #: [id number] : 2000 Provider: Dr. Debora wong MD Age/Sex: 24/F [place] [facility] [place] Status: Signed with Addenda ADDENDUM by Ailyn Barrera on 04/14/24 at 0946 Office Procedure Documentation entered by Ailyn Barrera 04/14/24 09:46: Immunizations Flucelvax Triv [id number] (PF) 45 mcg (15 mcg x 3)/0.5 mL IM syringe Performing Provider: Debora Milan MD Performing Location: [facility] Administered by: Ailyn Barrera on 04/14/24 09:45 Dose Route Admin Location Dispensed Lot Number Expiration Date NDC Man ufacturer 0.5 mL IM Left Deltoid 0.5 mL [id number] 11/19/24 [id number] [employer], [employer]. VIS Given Date VIS Provided VIS Publication Date 04/14/24 Single Vaccine 21 Eligibility Eligibility Date Funding Source Not Applicable Date cc: * Signed Intake Vital Signs 03/01/23 11:41 03/17/24 10:43 04/14/24 09:13 04/14/24 09:18 Height 5 ft 4 in 5 ft 4 in 5 ft 4 in 5 ft 4 in Weight: 140 lb BMI 24.0 BP 110/68 Intake Visit Reasons: 15wk OB Lag Screwer Required: No Is patient in pain?: No Feel stressed/tense/nervo us/anxious/difficult y sleeping: not at all Allergies No Known Allergies Allergy (Verified 04/14/24 09:13) Medications ???Medication ???Instructions ???Recorded ???Confirmed ???Type multivitamin no.47-iron fum 27 cap PO 06/01/22 04/14/24 History mg-folate no.1 1 mg-dha 300 mg capsule (PNV-DHA) Last Menstrual Period: 12/29/23 Zika: Zika virus screening: Negative : No Have you fallen in the past year?: No PFSH PFSH Family History Aunt Breast cancer, Onset Age: 40 Maternal Ovarian cancer, Onset Age: 50 Paternal Social History adopted: No household members: spouse housing: house number of children: 1 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 Back to pre weight. 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 Date Name GA/Weeks Outcome Route Bth Weight Infant Gen Labor Lgth Anesthesia Del Locatn Provider FOB 01/17/23 Emiliano 40 live - full term 8.5# Male epidural [facility] J enramon Hayley Robles Delivery Date: 01/17/23 Last Updated by: Lisa Maya see problem list for complications. HPI 15wk OB Details: MAYELA ARRIETA is a 24 year old who presents for routine OB visit. OB Visit JENNYFER Calculator Estimated Delivery Date Method Current WG Current Estimate 10/04/24 LMP (Certain) 15w 2d Expected Delivery Route/Plan Labor Preferences- CB/BF classes: [] labor support person: [] labor intervention preferences: [] pain management options preferred: [] cut cord/dad catch: [] : [] PP control planned: [] discussed possible routes of delivery and associated risks: [] special requests: [] Specific Issue/Plans Covid status: [] Flu vaccine: given Tdap vaccine: [] Rhogam: [] LARC form signed: [] Problem list reviewed and updated with the most current plan of care details and appropriate orders placed. Relevant counseling for the gestational age provided. Continue routine care and follow up unless otherwise noted in visit notes/problem list details Initial Weight: Not Recorded Date -???-???-???-???-??? -???-???-???-???-??? -???-???- EGA Weight BP Urine Prot -???-???-???-???-??? -???-???-???-???-??? -???-???- Glucose FHR FuHt Pres Dilation -???-???-???-???-??? -???-???-???-???-??? -???-???- (more content not included)... Normal [facility] Chlamydia/GC SARAH aptimaon CHLAMY,NUC ACID Negative Normal Negative [facility] Comment on above: Performed By: #### L 7000.1800, M1 ####[facility] [address] [place], [address] GC BY NUC ACID Negative Normal Negative [facility] Comment on above: Result Comment: Perf ormed at: =G - [facility] [address] [place] [id number] Lap Polisher: Sadia Chew MD, Phone: [phone] Performed By: #### L 7000.1800, ####[facility] [address] [place], [address] Urine Cultureon 03-19-2024 URC #1,2 Below infection level. Streptococcus agalactiae (B) [place] Count <1000 Mixed Gram Positive Organisms [place] Count 1000-10,000 MIXC Mixed contaminants. Submit a new specimen if indicated. * This is an amended result. * A prior result that was reported as final has been changed. 03/19/24932 by PAULETTE Normal [facility] Comment on above: Performed By: #### L 7000.1800, M1.0 ####[facility] [address] [place], [address] CBC W/Diff, Automatedon 02-24 Absolute Lymph 2.32 X10 3/uL Normal 0.83-4.51 [facility] Comment on above: Performed By: #### L 509.4005, L900.0098, L509.8000, BTS, L3890.6300, L3890.6005, L3890.6100, L100.0100 ####[facility] [address] [place], [address] Absolute Neut 6.6 X10 3/uL Normal 2.0-7.7 [facility] Comment on above: Performed By: #### L 509.4005, L900.0098, L509.8000, BTS, L3890.6300, L3890.6005, L3890.6100, L100.0100 ####[facility] [address] [place], [address] Basophils/100 WBC (Bld) 0.4 % Normal 0-1 [facility] Comment on above: Performed By: #### L 509.4005, L900.0098, L509.8000, BTS, L3890.6300, L3890.6005, L3890.6100, L100.0100 ####[facility] [address] [place], [address] Eosinophils/100 WBC (Bld) 0.8 % Normal 0-5 [facility] Comment on above: Performed By: #### L 509.4005, L900.0098, L509.8000, BTS, L3890.6300, L3890.6005, L3890.6100, L100.0100 ####[facility] [address] [place], [address] Erythrocyte distribution width (RBC) [Ratio] 12.9 % Normal 11.6-14.6 [facility] Comment on above: Performed By: #### L 509.4005, L900.0098, L509.8000, BTS, L3890.6300, L3890.6005, L3890.6100, L100.0100 ####[facility] [address] [place], [address] Hematocrit (Bld) [Volume fraction] 38.3 % Normal 37-47 [facility] Comment on above: Performed By: #### L 509.4005, L900.0098, L509.8000, BTS, L3890.6300, L3890.6005, L3890.6100, L100.0100 ####[facility] [address] [place], [address] Hemoglobin (Bld) [Mass/Vol] 12.5 g/dL Normal 12.0-15.0 [facility] Comment on above: Performed By: #### L 509.4005, L900.0098, L509.8000, BTS, L3890.6300, L3890.6005, L3890.6100, L100.0100 ####[facility] [address] [place], [address] IG% 0.700 Normal 0.0-0.9 [facility] Comment on above: Result Comment: IG% - Immature Granulocytes (promyelocytes, myelocytes and metamyelocytes) > 1% indicates that a LEFT SHIFT is Present. Performed By: #### L 509.4005, L900.0098, L509.8000, BTS, L3890.6300, L3890.6005, L3890.6100, L100.0100 ####[facility] [address] [place], [address] Lymphocytes/100 WBC (Bld) 24.0 % Normal 19-41 [facility] Comment on above: Performed By: #### L 509.4005, L900.0098, L509.8000, BTS, L3890.6300, L3890.6005, L3890.6100, L100.0100 ####[facility] [address] [place], [address] MCH (RBC) [Entitic mass] 27.8 pg Normal 27.0-32.0 [facility] Comment on above: Performed By: #### L 509.4005, L900.0098, L509.8000, BTS, L3890.6300, L3890.6005, L3890.6100, L100.0100 ####[facility] [address] [place], [address] MCHC (RBC) [Mass/Vol] 32.6 g/dL Normal 32-36 [facility] Comment on above: Performed By: #### L 509.4005, L900.0098, L509.8000, BTS, L3890.6300, L3890.6005, L3890.6100, L100.0100 ####[facility] [address] [place], [address] MCV (RBC) [Entitic vol] 85.1 fL Normal 81-99 [facility] Comment on above: Performed By: #### L 509.4005, L900.0098, L509.8000, BTS, L3890.6300, L3890.6005, L3890.6100, L100.0100 ####[facility] [address] [place], [address] Monocytes/100 WBC (Bld) 6.2 % Normal 0-10 [facility] Comment on above: Performed By: #### L 509.4005, L900.0098, L509.8000, BTS, L3890.6300, L3890.6005, L3890.6100, L100.0100 ####[facility] [address] [place], [address] Neutrophils/100 WBC (Bld) 67.9 % Normal 47-70 [facility] Comment on above: Performed By: #### L 509.4005, L900.0098, L509.8000, BTS, L3890.6300, L3890.6005, L3890.6100, L100.0100 ####[facility] [address] [place], [address] Nucleated RBC (Bld) [#/Vol] 0 10*3/uL Normal 0-5 [facility] Comment on above: Performed By: #### L 509.4005, L900.0098, L509.8000, BTS, L3890.6300, L3890.6005, L3890.6100, L100.0100 ####[facility] [address] [place], [address] Platelet mean volume (Bld) [Entitic vol] 10.1 fL Normal 6.2-12.0 [facility] Comment on above: Performed By: #### L 509.4005, L900.0098, L509.8000, BTS, L3890.6300, L3890.6005, L3890.6100, L100.0100 ####[facility] [address] [place], [address] Platelets (Bld) [#/Vol] 288 10*3/uL Normal 150-450 [facility] Comment on above: Performed By: #### L 509.4005, L900.0098, L509.8000, BTS, L3890.6300, L3890.6005, L3890.6100, L100.0100 ####[facility] [address] [place], [address] RBC (Bld) [#/Vol] 4.50 10*6/uL Normal 4.2-5.4 [facility] Comment on above: Performed By: #### L 509.4005, L900.0098, L509.8000, BTS, L3890.6300, L3890.6005, L3890.6100, L100.0100 ####[facility] [address] [place], [place], [address] RDW SD 39.4 fl Normal 35.1-43.9 [facility] Comment on above: Performed By: #### L 509.4005, L900.0098, L509.8000, BTS, L3890.6300, L3890.6005, L3890.6100, L100.0100 ####[facility] [address] [place], [address] WBC (Bld) [#/Vol] 9.7 10*3/uL Normal 4.4-11.[address] [facility] Comment on above: Performed By: #### L 509.4005, L900.0098, L509.8000, BTS, L3890.6300, L3890.6005, L3890.6100, L100.0100 ####[facility] [address] [place], [address] HIV - WCHon 03-17-2024 [facility] Comment on above: Order Comment: Reaso n for Exam: Performed By: #### L 509.4005, L900.0098, L509.8000, BTS, L3890.6300, L3890.6005, L3890.6100, L100.0100 ####[facility] [address] [place], [address] Hepatitis B Surface Antigeno n 03-17-2024 HEP B Surf Ag Non-Reactive [facility] Comment on above: Order Comment: Reaso n for Exam: Performed By: #### L 509.4005, L900.0098, L509.8000, BTS, L3890.6300, L3890.6005, L3890.6100, L100.0100 ####[facility] [address] [place], [address] Hepatitis C Antibodyon 03-17 Hepatitis C AB Non-Reactive Normal Nonreactive [facility] Comment on above: Order Comment: Reaso n for Exam: Result Comment: Non Reactive: < 0.8 Equivocal: >/= 0.8 to < 1.0 Reactive: >/= 1.0 The CDC requires that a reactive/equivocal HCV antibody result be sent out for confirmation. HCV Quant by PCR testing. Performed By: #### L 509.4005, L900.0098, L509.8000, BTS, L3890.6300, L3890.6005, L3890.6100, L100.0100 ####[facility] [address] [place], [address] L509.8000on 03-17-2024 Syphilis Abs Non-Reactive Normal [facility] Comment on above: Order Comment: Reaso n for Exam: Performed By: #### L 509.4005, L900.0098, L509.8000, BTS, L3890.6300, L3890.6005, L3890.6100, L100.0100 ####[facility] [address] [place], [address] NATERAon 03-17-2024 SHAHLA SEE SCANNED REPORT Normal [facility] Comment on above: Performed By: #### L 509.4005, L900.0098, L509.8000, BTS, L3890.6300, L3890.6005, L3890.6100, L100.0100 ####[facility] [address] [place], [address] Duct Layer Helper Office Visit Reporton 03-17-2024 Duct Layer Helper Office Visit Report [facility] [address], [address] [place] [address] OFFICE VISIT Date of Service: 03/17/24 MR#: [id number] Acct: [id number] Name: MAYELA ARRIETA ABDI Rep #: [id number] : 2000 Provider: Dr. Colette Reyes DO Age/Sex: 23/F Location: [facility] [place] Status: Signed Intake Vital Signs 03/01/23 11:41 03/17/24 10:41 03/17/24 10:43 Height 5 ft 4 in 5 ft 4 in 5 ft 4 in Weight: 136 lb 4 oz BMI 23.3 BP 108/68 Intake Visit Reasons: New OB, lmp 7/, JENNYFER 10/04 Lag Screwer Required: No Is patient in pain?: No Allergies No Known Allergies Allergy (Verified 03/17/24 10:41) Medications ???Medication ???Instructions ???Recorded ???Confirmed ???Type multivitamin no.47-iron fum 27 cap PO 06/01/22 03/17/24 History mg-folate no.1 1 mg-dha 300 mg capsule (PNV-DHA) Last Menstrual Period: 12/29/23 Zika: Zika virus screening: Negative : No PFSH PFSH Family History Aunt Breast cancer, Onset Age: 40 Maternal Ovarian cancer, Onset Age: 50 Paternal Social History adopted: No household members: spouse housing: house number of children: 1 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 Back to pre weight. 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 Date Name GA/Weeks Outcome Route Bth Weight Infant Gen Labor Lgth Anesthesia Del Locatn Provider FOB 01/17/23 Emiliano 40 live - full term 8.5# Male epidural [facility] J florence Gonzalez Delivery Date: 01/17/23 Last Updated by: Lisa Maya see problem list for complications. HPI New OB, lmp 7/, JENNYFER 10/04 Details: MAYELA ARRIETA is a 23 year old who presents for New OB visit. OB Visit JENNYFER Calculator Estimated Delivery Date Method Current WG Current Estimate 10/04/24 LMP (Certain) 11w 2d Comments: HIV: Urine Culture: Sequential Screen: NIPT Screen: Estimated Due Date: 10/04/24 Expected Delivery Route/Plan Labor Preferences- CB/BF classes: [] labor support person: [] labor intervention preferences: [] pain management options preferred: [] cut cord/dad catch: [] : [] PP control planned: [] discussed possible routes of delivery and associated risks: [] special requests: [] Specific Issue/Plans Covid status: [] Flu vaccine: [] Tdap vaccine: [] Rhogam: [] LARC form signed: [] Problem list reviewed and updated with the most current plan of care details and appropriate orders placed. Relevant counseling for the gestational age provided. Continue routine care and follow up unless otherwise noted in visit notes/problem list details Initial Weight: Not Recorded Date -???-???-???-???-??? -???-???-???-???-??? -???-???- EGA Weight BP Urine Prot -???-???-???-???-??? -???-???-???-???-??? -???-???- Glucose FHR FuHt Pres Dilation -???-???-???-???-??? -???-???-???-???-??? -???-???- Effaced St Visit Note 03/17/24 -???-???-???-???-??? -???-???-???-???-??? -???-???- 11w 2d 136 lb 4 oz 108/68 -???-???-???-???-??? -???-???-???-???-??? -???-???- 163 -???-???-???-???-??? -???-???-???-???-??? -???-???- JV- CRL sukhwinder ures 4.18 cm. This is consistent with JENNYFER per LMP. Patient desires NIPT with gender. Menstrual History Last Menstrual Period: 12/29/23 Reported LMP: definite Normal amount/duration: Yes Frequency in days: 32 On hormonal BC at conception: No hCG+: 01/31/24 Antepartum Record Genetic Screening: Congenital Heart Defect: Other, Neural Tube Defect: Other, Hemoglobinopathy Or Carrier: Other, Cystic Fibrosis: Other, Chromosome Abnormality: Other, Clemente-Sachs: Other, Hemophilia: Other, Intellectual Disability/Aut (more content not included)... Normal [facility] Rubella IgGon 03-17-2024 Rubella IgG Reactive Normal Nonreactive [facility] Comment on above: Order Comment: Reaso n for Exam: Result Comment: Anti body Results Interpretation of Immune Status Non Reactive Presumed Non-Immune Equivocal Equivocal Reactive Presumed Immune Performed By: #### L 509.4005, L900.0098, L509.8000, BTS, L3890.6300, L3890.6005, L3890.6100, L100.0100 ####[facility] [address] [place], [address] Type AND Screenon 03-17-2024 ABO and Rh group Nom (Bld) Blood group O Rh(D) positive Normal [facility] Comment on above: Order Comment: PN Performed By: #### L 509.4005, L900.0098, L509.8000, BTS, L3890.6300, L3890.6005, L3890.6100, L100.0100 ####[facility] [address] [place], [address] Absolute lymphocyte countOrd ered By: Misa Bryan on 01-17-2023 Lymphocytes Auto (Unsp spec) [#/Vol] 2.69 10*3/uL 0.83-4.51 [facility] Basophil percentageOrdered B y: Misa Bryan on 01-17-2023 Basophils/100 WBC (Bld) 0.6 % 0-1 [facility] Eosinophils/100 WBC (Bld) 1.3 % 0-5 [facility] Neutrophils (Bld) [#/Vol] 9.2 10*3/uL 2.0-7.7 [facility] Neutrophils/100 WBC (Bld) 67.8 % 47-70 [facility] WBC (Bld) [#/Vol] 13.6 10*3/uL 4.4-11.0 [facility] Blood erythrocytes count (nu mber/volume)Ordered By: Misa Bryan on 01-17-2023 RBC (Bld) [#/Vol] 3.90 10*6/uL 4.2-5.4 [facility] Blood hemoglobin measurement (mass/volume)Ordered By: Misa Bryan on 01-17-2023 Hemoglobin (Bld) [Mass/Vol] 10.1 g/dL 12.0-15.0 [facility] Blood lymphocytes/100 leukoc ytesOrdered By: Misa Bryan on 01-17-2023 Lymphocytes/100 WBC (Bld) 19.8 % 19-41 [facility] Blood monocytes/100 leukocyt esOrdered By: Misa Bryan on 01-17-2023 Monocytes/100 WBC (Bld) 8.4 % 0-10 [facility] Blood platelet mean volumeOr dered By: Misa Bryan on 01-17-2023 Platelet mean volume (Bld) [Entitic vol] 10.4 fL 6.2-12.0 [facility] Determination of erythrocyte mean corpuscular volume (MCV)Ordered By: Misa Bryan on 01-17-2023 MCV (RBC) [Entitic vol] 82.3 fL 81-99 [facility] Hematocrit Auto (Bld) [Volum e fraction]Ordered By: Misa Bryan on 01-17-2023 Hematocrit (Bld) [Volume fraction] 32.1 % 37-47 [facility] - Hematology and Cell countsOrdered By: Misa Bryan on 01-17-2023 Erythrocyte distribution width (RBC) [Entitic vol] 39.4 fL 35.1-43.9 [facility] Erythrocyte distribution width (RBC) [Ratio] 13.2 % 11.6-14.6 [facility] Immature granulocytes/100 WBC (Bld) 2.100 % 0.0-0.9 [facility] Comment on above: IG% - Immature Granu locytes (promyelocytes, myelocytes and metamyelocytes) > 1% indicates that a LEFT SHIFT is Present. MCH (RBC) [Entitic mass] 25.9 pg 27.0-32.0 [facility] Nucleated RBC/100 WBC (Bld) [Ratio] 0 % 0-5 [facility] MCHC Auto (RBC) [Mass/Vol]Or dered By: Misa Bryan on 01-17-2023 MCHC (RBC) [Mass/Vol] 31.5 g/dL 32-36 [facility] No Panel InformationOrdered By: Misa Bryan on 01-17-2023 Vaginal Amniotic Fluid Detection Positive Negative [facility] Comment on above: Amniotic fluid prese nt indicates rupture of Membranes. RESULTS CALLED TO Gay FITZGERALD RN (WP) 01/17/23 0034 Jaspreet Rivero.REPORT READ BACK BY SAME . Platelets bldOrdered By: Oj Bryan on 01-17-2023 Platelets (Bld) [#/Vol] 260 10*3/uL 150-450 [facility] Serum Treponema species anti body detectionOrdered By: Misa Bryan on 01-17-2023 Treponema sp Ab Ql (S) Non-Reactive [facility] - Chemistry and C hemistry - challengeon 01-11-2023 Glucose Ql (U) Negative [facility] - Urinalysison Protein Ql (U) Negative [facility] - Chemistry and C hemistry - challengeon 12-28-2022 Glucose Ql (U) Negative [facility] - Urinalysison Protein Ql (U) Negative [facility] No Panel InformationOrdered By: Dr. Zamarripa on 12-18-2022 Group B Streptococcus Culture Streptococcus agalactiae (B) [facility] - Chemistry and C hemistry - challengeon 12-14-2022 Glucose Ql (U) Negative [facility] - Urinalysison Protein Ql (U) Negative [facility] No Panel InformationOrdered By: Colette Zamarripa on 12-14-2022 Group B Streptococcus Culture Streptococcus agalactiae (B) [facility] - Chemistry and C hemistry - challengeon 11-30-2022 Glucose Ql (U) Negative [facility] - Urinalysison Protein Ql (U) Negative [facility] - Chemistry and C hemistry - challengeon 11-16-2022 Glucose Ql (U) Negative [facility] - Urinalysison Protein Ql (U) Negative [facility] - Chemistry and C hemistry - challengeon 11-03-2022 Glucose Ql (U) Negative [facility] - Urinalysison Protein Ql (U) Negative [facility] Absolute lymphocyte countOrd ered By: Dr. Zamarripa on 10-18-2022 Lymphocytes Auto (Unsp spec) [#/Vol] 1.83 10*3/uL 0.83-4.51 [facility] Basophil percentageOrdered B y: Dr. Zamarripa on 10-18-2022 Basophils/100 WBC (Bld) 0.5 % 0-1 [facility] Eosinophils/100 WBC (Bld) 0.8 % 0-5 [facility] Neutrophils (Bld) [#/Vol] 11.3 10*3/uL 2.0-7.7 [facility] Neutrophils/100 WBC (Bld) 77.9 % 47-70 [facility] WBC (Bld) [#/Vol] 14.4 10*3/uL 4.4-11.0 [facility] Blood erythrocytes count (nu mber/volume)Ordered By: Dr. Zamarripa on 10-18-2022 RBC (Bld) [#/Vol] 3.99 10*6/uL 4.2-5.4 [facility] Blood hemoglobin measurement (mass/volume)Ordered By: Dr. Zamarripa on 10-18-2022 Hemoglobin (Bld) [Mass/Vol] 11.5 g/dL 12.0-15.0 [facility] Blood lymphocytes/100 leukoc ytesOrdered By: Dr. Zamarripa on 10-18-2022 Lymphocytes/100 WBC (Bld) 12.7 % 19-41 [facility] Blood monocytes/100 leukocyt esOrdered By: Dr. Zamarripa on 10-18-2022 Monocytes/100 WBC (Bld) 6.0 % 0-10 [facility] Blood platelet mean volumeOr dered By: Dr. Zamarripa on 10-18-2022 Platelet mean volume (Bld) [Entitic vol] 9.7 fL 6.2-12.0 [facility] Determination of erythrocyte mean corpuscular volume (MCV)Ordered By: Dr. Zamarripa on 10-18-2022 MCV (RBC) [Entitic vol] 88.2 fL 81-99 [facility] Gestational diabetes screen 1-hour screen with 50g oral glucose loadOrdered By: Dr. Zamarripa on 10-18-2022 Glucose 1 Hr post 50 g glucose PO [Mass/Vol] 134 mg/dL 70-140 [facility] HIV 1 and HIV-2 antibody ass ay with HIV-1 p24 antigen detectionOrdered By: Dr. Zamarripa on 10-18-2022 HIV 1+2 Ab+HIV1 p24 Ag IA Ql Non-Reactive Nonreactive [facility] Hematocrit Auto (Bld) [Volum e fraction]Ordered By: Dr. Zamarripa on 10-18-2022 Hematocrit (Bld) [Volume fraction] 35.2 % 37-47 [facility] - Chemistry and C hemistry - challengeon 10-18-2022 Glucose Ql (U) Negative [facility] - Hematology and Cell countsOrdered By: Dr. Zamarripa on 10-18-2022 Erythrocyte distribution width (RBC) [Entitic vol] 39.5 fL 35.1-43.9 [facility] Erythrocyte distribution width (RBC) [Ratio] 12.3 % 11.6-14.6 [facility] Immature granulocytes/100 WBC (Bld) 2.100 % 0.0-0.9 [facility] Comment on above: IG% - Immature Granu locytes (promyelocytes, myelocytes and metamyelocytes) > 1% indicates that a LEFT SHIFT is Present. MCH (RBC) [Entitic mass] 28.8 pg 27.0-32.0 [facility] Nucleated RBC/100 WBC (Bld) [Ratio] 0 % 0-5 [facility] - Urinalysison Protein Ql (U) Negative [facility] MCHC Auto (RBC) [Mass/Vol]Or dered By: Dr. Zamarripa on 10-18-2022 MCHC (RBC) [Mass/Vol] 32.7 g/dL 32-36 [facility] Platelets bldOrdered By: Dr. Zamarripa on 10-18-2022 Platelets (Bld) [#/Vol] 222 10*3/uL 150-450 [facility] Serum Treponema species anti body detectionOrdered By: Dr. Zamarripa on 10-18-2022 Treponema sp Ab Ql (S) Non-Reactive [facility] - Chemistry and C hemistry - challengeon 09-29-2022 Glucose Ql (U) Negative [facility] - Urinalysison Protein Ql (U) Negative [facility] - Chemistry and C hemistry - challengeon 09-01-2022 Glucose Ql (U) Negative [facility] - Urinalysison Protein Ql (U) Negative [facility] Absolute lymphocyte countOrd ered By: Dr. Zamarripa on 07-10-2022 Lymphocytes Auto (Unsp spec) [#/Vol] 2.44 10*3/uL 0.83-4.51 [facility] Basophil percentageOrdered B y: Dr. Zamarripa on 07-10-2022 Basophils/100 WBC (Bld) 0.5 % 0-1 [facility] Eosinophils/100 WBC (Bld) 1.0 % 0-5 [facility] Neutrophils (Bld) [#/Vol] 6.4 10*3/uL 2.0-7.7 [place] Neutrophils/100 WBC (Bld) 66.0 % 47-70 [place] WBC (Bld) [#/Vol] 9.6 10*3/uL 4.4-11.[address] [facility] Blood erythrocytes count (nu mber/volume)Ordered By: Dr. Zamarripa on 07-10-2022 RBC (Bld) [#/Vol] 4.17 10*6/uL 4.2-5.4 [facility] Blood hemoglobin measurement (mass/volume)Ordered By: Dr. Zamarripa on 07-10-2022 Hemoglobin (Bld) [Mass/Vol] 12.0 g/dL 12.0-15.0 [place] Blood lymphocytes/100 leukoc ytesOrdered By: Dr. Zamarripa on 07-10-2022 Lymphocytes/100 WBC (Bld) 25.3 % 19-41 [place] Blood monocytes/100 leukocyt esOrdered By: Dr. Zamarripa on 07-10-2022 Monocytes/100 WBC (Bld) 6.8 % 0-10 [facility] Blood platelet mean volumeOr dered By: Dr. Zamarripa on 07-10-2022 Platelet mean volume (Bld) [Entitic vol] 9.6 fL 6.2-12.0 [place] Determination of erythrocyte mean corpuscular volume (MCV)Ordered By: Dr. Zamarripa on 07-10-2022 MCV (RBC) [Entitic vol] 85.9 fL 81-99 [facility] HIV 1 and HIV-2 antibody ass ay with HIV-1 p24 antigen detectionOrdered By: Dr. Zamarripa on 07-10-2022 HIV 1+2 Ab+HIV1 p24 Ag IA Ql Non-Reactive Nonreactive [place] Hematocrit Auto (Bld) [Volum e fraction]Ordered By: Dr. Zamarripa on 07-10-2022 Hematocrit (Bld) [Volume fraction] 35.8 % 37-47 [place] [facility] - Hematology and Cell countsOrdered By: Dr. Zamarripa on 07-10-2022 Erythrocyte distribution width (RBC) [Entitic vol] 39.5 fL 35.1-43.9 [place] Erythrocyte distribution width (RBC) [Ratio] 12.8 % 11.6-14.6 [place] Immature granulocytes/100 WBC (Bld) 0.400 % 0.0-0.9 [place] Comment on above: IG% - Immature Granu locytes (promyelocytes, myelocytes and metamyelocytes) > 1% indicates that a LEFT SHIFT is Present. MCH (RBC) [Entitic mass] 28.8 pg 27.0-32.0 [place] Nucleated RBC/100 WBC (Bld) [Ratio] 0 % 0-5 [place] MCHC Auto (RBC) [Mass/Vol]Or dered By: Dr. Zamarripa on 07-10-2022 MCHC (RBC) [Mass/Vol] 33.5 g/dL 32-36 [facility] No Panel InformationOrdered By: Dr. Zamarripa on 07-10-2022 Hepatitis B Surface Antigen Non-Reactive Nonreactive [place] Hepatitis C Antibody Non-Reactive Nonreactive [facility] Comment on above: Non Reactive: < 0.8 Equivocal: >/= 0.8 to < 1.0 Reactive: >/= 1.0The CDC recommends that a reactive/equivocal HCV antibody result be followed up by the HCV Nucleic Acid Amplificationtest (726369) Miscellaneous Test Comment MAILED SPECIMEN [place] Rubella IgG Antibody Reactive Nonreactive [facility] Comment on above: Antibody Results Int erpretation of Immune Status Non Reactive Presumed Non-Immune Equivocal Equivocal Reactive Presumed Immune Platelets bldOrdered By: Dr. Zamarripa on 07-10-2022 Platelets (Bld) [#/Vol] 273 10*3/uL 150-450 [place] Serum Treponema species anti body detectionOrdered By: Dr. Zamarripa on 07-10-2022 Treponema sp Ab Ql (S) Non-Reactive [place] [facility] - Chemistry and C hemistry - challengeon 07-07-2022 Glucose Ql (U) Negative [place] [facility] - Urinalysison Protein Ql (U) Negative [place] Culture, urineOrdered By: Dr Al Zamarripa on 06-11-2022 Bacteria identified Cx Nom (U) Culture exhibits no growth. [place] Cervical or vagninal specime n microscopic examination by cytology stain (reported asOrdered By: Dr. Zamarripa on 06-09-2022 Cytology report Cyto stain Doc (Cvx/Vag) Comment . [place] Comment on above: The Pap smear is a s creening test designed to aid in thedetection of premalignant and malignant conditions of theuterine cervix. It is not a diagnostic procedure andshould not be used as the sole means of detecting cervicalcancer. Both false-positive and false-negative reports dooccur. Chlamydia trachomatis rRNA d etection by probe and target amplification methodOrdered By: Dr. Zamarripa on 06-09-2022 C. trachomatis rRNA SARAH+probe Ql (Unsp spec) Negative Negative [place] [facility] - CytologyOrdered By: Dr. Zamarripa on 06-09-2022 [employer] Officer Cyto stain Nom (Cvx/Vag) [ID] Comment . [place] Comment on above: Maxim Nunez, Cyto technologist (ASCP) Laboratory - Microbiology an d Antimicrobial susceptibilityOrdered By: Dr. Zamarripa on 06-09-2022 N. gonorrhoeae DNA SARAH+probe Ql (Unsp spec) Negative Negative [place] Comment on above: Performed at: [address] [id number] Director: Sadia Chew MD, Phone: [phone] Laboratory - Miscellaneous t estsOrdered By: Dr. Zamarripa on 06-09-2022 Service comment (Unsp spec) [Interp] Comment . [place] Comment on above: This liquid based Th inPrep(R) pap test was screened withthe use of an image guided system. Service comment (Unsp spec) [Interp] . . [place] No Panel InformationOrdered By: Dr. Zamarripa on 06-09-2022 Human Papillomavirus Screen Comment . [place] Comment on above: The HPV DNA reflex c andreea were not met with this specimenresult therefore, no HPV testing was performed.Performed at: [facility] [id number] [facility] [address], [place], [place] [id number] Director: Nikky Ozuna MD, Phone: [phone] at: [address] [id number] Director: Sadia Chew MD, Phone: [phone] Pathology report final diagnosis Narrative Comment . [place] Comment on above: NEGATIVE FOR INTRAEP ITHELIAL LESION OR MALIGNANCY. Culture, urine Bacteria identified Cx Nom (U) Culture exhibits no growth. [place] Work Phone: Vital Signs Date Time Vital Sign Value Performing Clinician Jeffery ortiz 11-25-2024 10:40-0400 Body height 162.[address] Arianna Iyer MD Work Phone: [place] 11-25-2024 10:35-0400 Body mass index (BMI) [Ratio] 25.7 kg/m2 Dr. Arianna Iyer MD Work Phone: [place] 11-25-2024 10:35-0400 Body weight 68.[address] Arianna Iyer MD Work Phone: [place] 11-25-2024 10:35-0400 Diastolic blood pressure 70 mm[Hg] Dr. Arianna Iyer MD Work Phone: [place] 11-25-2024 10:35-0400 Systolic blood pressure 98 mm[Hg] Dr. Arianna Iyer MD Work Phone: [place] 10-11-2024 07:51-0400 Body temperature 97.9 [degF] Dr. Arianna Iyer MD Work Phone: [place] 10-11-2024 07:51-0400 Diastolic blood pressure 59 mm[Hg] Dr. Arianna Iyer MD Work Phone: [place] 10-11-2024 07:51-0400 Heart rate 94 /min Dr. Arianna Iyer MD Work Phone: [place] 10-11-2024 07:51-0400 Respiratory rate 16 /min Dr. Arianna Iyer MD Work Phone: [place] 10-11-2024 07:51-0400 SaO2% (BldA) [Mass fraction] 97 % Dr. Arianna Iyer MD Work Phone: [place] 10-11-2024 07:51-0400 Systolic blood pressure 105 mm[Hg] Dr. Arianna Iyer MD Work Phone: [place] 10-10-2024 00:22-0400 Body height 162.[address] Arianna Iyer MD Work Phone: [place] 10-10-2024 00:22-0400 Body mass index (BMI) [Ratio] 29.9 kg/m2 Dr. Arianna Iyer MD Work Phone: [place] 10-10-2024 00:22-0400 Body weight 79.[address] Arianna Iyer MD Work Phone: 6(301)739-899926 [place] [address] 10-06-2024 14:06-0400 Body mass index (BMI) [Ratio] 30.2 kg/m2 Dr. Arianna Iyer MD Work Phone: 6(285)393-189426 [place] [address] 10-06-2024 14:06-0400 Body weight 80.[address] Arianna Iyer MD Work Phone: 0(389)439-704326 [place] [address] 10-06-2024 14:06-0400 Diastolic blood pressure 65 mm[Hg] Dr. Arianna Iyer MD Work Phone: 8(897)880-141626 [place] [address] 10-06-2024 14:06-0400 Systolic blood pressure 109 mm[Hg] Dr. Arianna Iyer MD Work Phone: 7(285)885-438134 [address] 09-29-2024 13:47-0400 Body mass index (BMI) [Ratio] 29.7 kg/m2 Dr. Arianna Iyer MD Work Phone: 0(620)668-080826 [place] [address] 09-29-2024 13:47-0400 Body weight 78.[address] Arianna Iyer MD Work Phone: 2(740)540-887526 [place] [address] 09-29-2024 13:47-0400 Diastolic blood pressure 64 mm[Hg] Dr. Arianna Iyer MD Work Phone: 6(801)752-445726 [place] [address] 09-29-2024 13:47-0400 Systolic blood pressure 110 mm[Hg] Dr. Arianna Iyer MD Work Phone: 1(359)820-540626 [place] [address] 09-22-2024 11:26-0400 Body mass index (BMI) [Ratio] 29 kg/m2 Dr. Arianna Iyer MD Work Phone: [place] 09-22-2024 11:26-0400 Body weight 76.[address] Arianna Iyer MD Work Phone: [place] 09-22-2024 11:26-0400 Diastolic blood pressure 62 mm[Hg] Dr. Arianna Iyer MD Work Phone: [place] 09-22-2024 11:26-0400 Systolic blood pressure 100 mm[Hg] Dr. Arianna Iyer MD Work Phone: 1(183)227-401626 [place] [address] 09-15-2024 11:13-0400 Body mass index (BMI) [Ratio] 29 kg/m2 Dr. Arianna Iyer MD Work Phone: 2(940)176-446126 [place] [address] 09-15-2024 11:13-0400 Body weight 76.[address] Arianna Iyer MD Work Phone: 6(576)211-489126 [place] [address] 09-15-2024 11:13-0400 Diastolic blood pressure 68 mm[Hg] Dr. Arianna Iyer MD Work Phone: 3(419)016-656426 [place] [address] 09-15-2024 11:13-0400 Systolic blood pressure 105 mm[Hg] Dr. Arianna Iyer MD Work Phone: 8(407)632-487326 [place] [address] 09-08-2024 09:11-0400 Body mass index (BMI) [Ratio] 28.7 kg/m2 Dr. Arianna Iyer MD Work Phone: [place] 09-08-2024 09:11-0400 Body weight 75.[address] Arianna Iyer MD Work Phone: 8(851)946-881926 [place] [address] 09-08-2024 09:11-0400 Diastolic blood pressure 59 mm[Hg] Dr. Arianna Iyer MD Work Phone: 8(183)119-242826 [place] [address] 09-08-2024 09:11-0400 Systolic blood pressure 104 mm[Hg] Dr. Arianna Iyer MD Work Phone: 9(443)216-450526 [place] [address] 08-28-2024 11:24-0500 Body mass index (BMI) [Ratio] 28.7 kg/m2 Dr. Arianna Iyer MD Work Phone: [place] 08-28-2024 11:24-0500 Body weight 75.[address] Arianna Iyer MD Work Phone: [place] 08-28-2024 11:24-0500 Diastolic blood pressure 64 mm[Hg] Dr. Arianna Iyer MD Work Phone: 9(110)234-724126 [place] [address] 08-28-2024 11:24-0500 Systolic blood pressure 106 mm[Hg] Dr. Arianna Iyer MD Work Phone: 7(769)060-162634 [address] 08-14-2024 15:28-0500 Body mass index (BMI) [Ratio] 27.6 kg/m2 Dr. Arianna Iyer MD Work Phone: 4(719)244-612426 [place] [address] 08-14-2024 15:28-0500 Body weight 73.[address] Arianna Iyer MD Work Phone: 3(749)387-449926 [place] [address] 08-14-2024 15:28-0500 Diastolic blood pressure 65 mm[Hg] Dr. Arianna Iyer MD Work Phone: 5(018)410-436526 [place] [address] 08-14-2024 15:28-0500 Systolic blood pressure 101 mm[Hg] Dr. Arianna Iyer MD Work Phone: 1(872)184-366226 [place] [address] 08-01-2024 16:11-0500 Body mass index (BMI) [Ratio] 27.5 kg/m2 Dr. Arianna Iyer MD Work Phone: 3(669)371-474926 [place] [address] 08-01-2024 16:11-0500 Body weight 72.[address] Arianna Iyer MD Work Phone: 5(756)165-931726 [place] [address] 08-01-2024 16:11-0500 Diastolic blood pressure 69 mm[Hg] Dr. Arianna Iyer MD Work Phone: 5(700)636-438326 [place] [address] 08-01-2024 16:11-0500 Systolic blood pressure 109 mm[Hg] Dr. Arianna Iyer MD Work Phone: 8(279)307-189326 [place] [address] 07-07-2024 09:36-0500 Body mass index (BMI) [Ratio] 26.6 kg/m2 Dr. Arianna Iyer MD Work Phone: [place] 07-07-2024 09:36-0500 Body weight 70.[address] Arianna Iyer MD Work Phone: 4(342)040-420126 [place] [address] 07-07-2024 09:36-0500 Diastolic blood pressure 69 mm[Hg] Dr. Arianna Iyer MD Work Phone: 8(193)544-115026 [place] [address] 07-07-2024 09:36-0500 Systolic blood pressure 112 mm[Hg] Dr. Arianna Iyer MD Work Phone: 4(322)866-910934 [address] 03-01-2023 11:41-0400 Body height 162.[address] Arianna Iyer Work Phone: 4(541)745-712934 [address] 03-01-2023 11:36-0400 Body mass index (BMI) [Ratio] 23.1 kg/m2 Dr. Arianna Iyer Work Phone: 2(400)032-532226 [place] [address] 03-01-2023 11:36-0400 Body weight [address] Arianna Iyer Work Phone: 7(734)961-834826 [place] [address] 03-01-2023 11:36-0400 Diastolic blood pressure 61 mm[Hg] Dr. Arianna Iyer Work Phone: 5(101)409-210034 [address] 03-01-2023 11:36-0400 Systolic blood pressure 100 mm[Hg] Dr. Arianna Iyer Work Phone: 0(309)359-319326 [place] [address] 01-19-2023 14:10-0400 Body temperature 97.2 [degF] Dr. Arianna Iyer Work Phone: 1(055)541-918326 [place] [address] 01-19-2023 14:10-0400 Diastolic blood pressure 73 mm[Hg] Dr. Arianna Iyer Work Phone: 9(908)613-623726 [place] [address] 01-19-2023 14:10-0400 Heart rate 83 /min Dr. Arianna Iyer Work Phone: 9(511)344-458126 [place] [address] 01-19-2023 14:10-0400 Respiratory rate 16 /min Dr. Arianna Iyer Work Phone: [place] 01-19-2023 14:10-0400 Systolic blood pressure 119 mm[Hg] Dr. Arianna Iyer Work Phone: [place] 01-19-2023 08:34-0400 SaO2% (BldA) [Mass fraction] 98 % Dr. Arianna Iyer Work Phone: [place] 01-17-2023 00:02-0400 Body mass index (BMI) [Ratio] 27.8 kg/m2 Dr. Arianna Iyer Work Phone: [place] 01-17-2023 00:02-0400 Body weight 73.[address] Arianna Iyer Work Phone: 9(485)118-433126 [place] [address] 01-11-2023 13:35-0400 Body mass index (BMI) [Ratio] 28.5 kg/m2 Dr. Arianna Iyer Work Phone: [place] 01-11-2023 13:35-0400 Body weight 75.[address] Arianna Iyer Work Phone: [place] 01-11-2023 13:35-0400 Diastolic blood pressure 67 mm[Hg] Dr. Arianna Iyer Work Phone: [place] 01-11-2023 13:35-0400 Systolic blood pressure 110 mm[Hg] Dr. Arianna Iyer Work Phone: [place] 01-05-2023 13:23-0400 Body mass index (BMI) [Ratio] 28.2 kg/m2 Dr. Arianna Iyer Work Phone: 0(876)116-605226 [place] [address] 01-05-2023 13:23-0400 Body weight 74.[address] Arianna Iyer Work Phone: [place] 01-05-2023 13:23-0400 Diastolic blood pressure 67 mm[Hg] Dr. Arianna Iyer Work Phone: [place] 01-05-2023 13:23-0400 Systolic blood pressure 112 mm[Hg] Dr. Arianna Iyer Work Phone: [place] 12-28-2022 13:34-0400 Body mass index (BMI) [Ratio] 27.6 kg/m2 Dr. Arianna Iyer Work Phone: [place] 12-28-2022 13:34-0400 Body weight 73.[address] Arianna Iyer Work Phone: [place] 12-28-2022 13:34-0400 Diastolic blood pressure 65 mm[Hg] Dr. Arianna Iyer Work Phone: [place] 12-28-2022 13:34-0400 Systolic blood pressure 110 mm[Hg] Dr. Arianna Iyer Work Phone: 4(075)323-229526 [place] [address] 12-21-2022 13:21-0400 Diastolic blood pressure 58 mm[Hg] Dr. Arianna Iyer Work Phone: 3(196)873-078126 [place] [address] 12-21-2022 13:21-0400 Systolic blood pressure 101 mm[Hg] Dr. Arianna Iyer Work Phone: 4(812)071-748026 [place] [address] 12-21-2022 13:04-0400 Body mass index (BMI) [Ratio] 27.3 kg/m2 Dr. Arianna Iyer Work Phone: 4(233)706-619426 [place] [address] 12-21-2022 13:04-0400 Body weight 72.[address] Arianna Iyer Work Phone: [place] 12-14-2022 13:37-0400 Body height 162.[address] Arianna Iyer Work Phone: [place] 12-14-2022 13:37-0400 Body mass index (BMI) [Ratio] 27.1 kg/m2 Dr. Arianna Iyer Work Phone: [place] 12-14-2022 13:37-0400 Body weight 71.[address] Arianna Iyer Work Phone: [place] 12-14-2022 13:37-0400 Diastolic blood pressure 67 mm[Hg] Dr. Arianna Iyer Work Phone: [place] 12-14-2022 13:37-0400 Systolic blood pressure 116 mm[Hg] Dr. Arianna Iyer Work Phone: [place] 11-30-2022 12:59-0400 Body mass index (BMI) [Ratio] 26.9 kg/m2 Dr. Arianna Iyer Work Phone: [place] 11-30-2022 12:59-0400 Body weight 70.[address] Arianna Iyer Work Phone: 3(025)970-331226 [place] [address] 11-30-2022 12:59-0400 Diastolic blood pressure 66 mm[Hg] Dr. Arianna Iyer Work Phone: 9(452)678-109726 [place] [address] 11-30-2022 12:59-0400 Systolic blood pressure 123 mm[Hg] Dr. Arianna Iyer Work Phone: 6(531)768-392826 [place] [address] 11-16-2022 13:03-0400 Body mass index (BMI) [Ratio] 25.9 kg/m2 Dr. Arianna Iyer Work Phone: [place] 11-16-2022 13:03-0400 Body weight 68.[address] Arianna Iyer Work Phone: 1(982)230-403026 [place] [address] 11-16-2022 13:03-0400 Diastolic blood pressure 78 mm[Hg] Dr. Arianna Iyer Work Phone: 0(592)865-563426 [place] [address] 11-16-2022 13:03-0400 Systolic blood pressure 98 mm[Hg] Dr. Arianna Iyer Work Phone: [place] 11-03-2022 13:37-0400 Body mass index (BMI) [Ratio] 25.4 kg/m2 Dr. Arianna Iyer Work Phone: 8(625)606-461926 [place] [address] 11-03-2022 13:37-0400 Body weight 67.[address] Arianna Iyer Work Phone: [place] 11-03-2022 13:37-0400 Diastolic blood pressure 62 mm[Hg] Dr. Arianna Iyer Work Phone: [place] 11-03-2022 13:37-0400 Systolic blood pressure 114 mm[Hg] Dr. Arianna Iyer Work Phone: [place] 10-18-2022 14:52-0400 Body mass index (BMI) [Ratio] 25.4 kg/m2 Dr. Arianna Iyer Work Phone: [place] 10-18-2022 14:52-0400 Body weight 67.[address] Arianna Iyer Work Phone: [place] 10-18-2022 14:52-0400 Diastolic blood pressure 67 mm[Hg] Dr. Arianna Iyer Work Phone: [place] 10-18-2022 14:52-0400 Systolic blood pressure 107 mm[Hg] Dr. Arianna Iyer Work Phone: [place] 09-29-2022 13:29-0400 Body mass index (BMI) [Ratio] 24.7 kg/m2 Dr. Arianna Iyer Work Phone: [place] 09-29-2022 13:29-0400 Body weight 65.[address] Arianna Iyer Work Phone: [place] 09-29-2022 13:29-0400 Diastolic blood pressure 61 mm[Hg] Dr. Arianna Iyer Work Phone: [place] 09-29-2022 13:29-0400 Systolic blood pressure 97 mm[Hg] Dr. Arianna Iyer Work Phone: [place] 09-01-2022 13:14-0500 Body mass index (BMI) [Ratio] 23.9 kg/m2 Dr. Arianna Iyer Work Phone: [place] 09-01-2022 13:14-0500 Body weight 63.[address] Arianna Iyer Work Phone: [place] 09-01-2022 13:14-0500 Diastolic blood pressure 67 mm[Hg] Dr. Arianna Iyer Work Phone: [place] 09-01-2022 13:14-0500 Systolic blood pressure 119 mm[Hg] Dr. Arianna Iyer Work Phone: [place] 07-07-2022 14:48-0500 Body height 162.[address] Arianna Iyer Work Phone: [place] 07-07-2022 14:48-0500 Body mass index (BMI) [Ratio] 21.9 kg/m2 Dr. Arianna Iyer Work Phone: [place] 07-07-2022 14:48-0500 Body weight 58.[address] Arianna Iyer Work Phone: [place] 07-07-2022 14:48-0500 Diastolic blood pressure 63 mm[Hg] Dr. Arianna Iyer Work Phone: [place] 07-07-2022 14:48-0500 Systolic blood pressure 113 mm[Hg] Dr. Arianna Iyer Work Phone: [place] 06-09-2022 16:08-0500 Body height 162.[address] Arianna Iyer Work Phone: [place] Work Phone: 06-09-2022 16:08-0500 Body mass index (BMI) [Ratio] 21.5 kg/m2 Dr. Arianna Iyer Work Phone: [place] 06-09-2022 16:08-0500 Body weight 56.[address] Arianna Iyer Work Phone: [place] 06-09-2022 16:08-0500 Diastolic blood pressure 77 mm[Hg] Dr. Arianna Iyer Work Phone: [place] 12-16-2022 16:08-0500 Systolic blood pressure 117 mm[Hg] Dr. Arianna Iyer Work Phone: [place] Encounters Encounter Date Encounter Type Care Provider Facility Start: 12-02-2024 ambulatory [facility] Start: 11-25-2024 End: 11-25-[address] Arianna Iyer MD Work Phone: [place] Work Phone: Start: 11-25-2024 End: 11-25-2024 Patient encounter procedure Aliyn Roper NP-Re -Laboratory Specimen Work Phone: Start: 11-25-2024 End: 11-25-2024 Patient encounter procedure Ailyn Roper NP-C -[facility] Work Phone: Start: 11-25-2024 End: 11-25-2024 ambulatory [facility] Start: 11-25-2024 End: 11-25-2024 ambulatory [facility] Start: 10-11-2024 Non-patient / Non-visit Misa Bryan [facility] Start: 10-10-2024 Non-patient / Non-visit Misa Bryan [facility] Start: 10-10-2024 ambulatory [facility] Start: 10-10-2024 End: 10-11-2024 Evaluation and management of inpatient Misa Bryan [facility] Work Phone: Start: 10-06-2024 End: 10-06-2024 Patient encounter procedure Misa MEDRANO -[facility] Work Phone: Start: 10-06-2024 End: 10-06-2024 ambulatory [facility] Start: 10-04-2024 ambulatory Colette Russellty:[place] Start: 09-29-2024 End: 09-29-[address] Colette Berger DO -[facility] Work Phone: Start: 09-29-2024 End: 09-29-2024 ambulatory Arianna Iyer Facility:[facility] Start: 09-22-2024 End: 09-22-2024 Patient encounter procedure Misa Bryan CNM -[facility] Work Phone: Start: 09-22-2024 End: 09-22-2024 ambulatory Arianna Iyer Facility:[facility] Start: 09-15-2024 End: 09-15-[address] Colette Berger DO -[facility] Work Phone: Start: 09-15-2024 End: 09-15-2024 ambulatory Arianna Iyer Facility:[facility] Start: 09-08-2024 End: 09-08-2024 Patient encounter procedure Misa MEDRANO -[facility] Work Phone: Start: 09-08-2024 End: 09-08-2024 ambulatory Arianna Iyer Facility:[facility] Start: 08-28-2024 End: 08-28-[address] Colette Berger DO -[facility] Work Phone: Start: 08-28-2024 End: 08-28-2024 ambulatory Arianna Iyer Facility:[facility] Start: 08-14-2024 End: 08-14-[address] Debora Milan MD -[facility] Work Phone: Start: 08-14-2024 End: 08-14-2024 ambulatory Arianna Iyer Facility:[facility] Start: 08-01-2024 End: 08-01-2024 Patient encounter procedure Pamela MEDRANO -[facility] Work Phone: Start: 08-01-2024 End: 08-01-2024 ambulatory Pamela Cortez Facility:[facility] Start: 07-07-2024 End: 07-07-2024 ambulatory Arianna Iyer Facility:[facility] Start: 07-07-2024 End: 07-07-2024 Patient encounter procedure Misa MEDRANO -[facility] Work Phone: Start: 07-07-2024 End: 07-07-2024 ambulatory Arianna Iyer Facility:[place] Start: 06-09-2024 End: 06-09-2024 ambulatory Arianna Iyer Facility:[facility] Start: 05-20-2024 End: 05-20-2024 ambulatory DEBORA MILAN [facility] Start: 05-12-2024 End: 05-12-2024 ambulatory Arianna Iyer Facility:[facility] Start: 04-14-2024 End: 04-14-2024 ambulatory Arianna Iyer Facility:[facility] Start: 03-17-2024 End: 03-17-2024 ambulatory Arianna Iyer Facility:[facility] Start: 03-17-2024 End: 03-17-2024 ambulatory Arianna Iyer Facility:[place] Start: 03-10-2023 End: 03-10-[address] Arianna Iyer Work Phone: [place] Work Phone: Start: 03-10-2023 End: 03-10-[address] Arianna Iyer Work Phone: [facility] Work Phone: Start: 03-01-2023 End: 03-01-[address] Arianna Iyer Work Phone: [facility] Work Phone: Start: 01-25-2023 End: 01-25-[address] Arianna Iyer Work Phone: [facility] Work Phone: Start: 01-22-2023 End: 01-22-[address] Arianna Iyer Work Phone: [facility] Work Phone: Start: 01-19-2023 Non-patient / Non-visit Dr. Arianna Iyer Work Phone: [facility] Start: 01-18-2023 Non-patient / Non-visit Dr. Arianna Iyer Work Phone: [facility] Start: 01-17-2023 Non-patient / Non-visit Dr. Arianna Iyer Work Phone: [facility] Start: 01-17-2023 End: 01-19-2023 Evaluation and management of inpatient Dr. Arianna Iyer Work Phone: [facility] Work Phone: Start: 01-11-2023 End: 01-11-[address] Arianna Iyer Work Phone: [facility] Work Phone: Start: 01-05-2023 End: 01-05-[address] Arianna Iyer Work Phone: [facility] Work Phone: Start: 12-28-2022 End: 12-28-[address] Arianna Iyer Work Phone: [facility] Work Phone: Start: 12-21-2022 End: 12-21-2022 Patient encounter procedure Dr. Arianna Iyer Work Phone: [facility] Work Phone: Start: 12-14-2022 End: 12-14-[address] Arianna Iyer Work Phone: [place] Work Phone: Start: 12-14-2022 End: 12-14-[address] Arianna Iyer Work Phone: [facility] Start: 12-14-2022 End: 12-14-[address] Arianna Iyer Work Phone: [facility] Start: 11-30-2022 End: 11-30-[address] Arianna Iyer Work Phone: [facility] Start: 11-16-2022 End: 11-16-[address] Arianna Iyer Work Phone: [facility] Start: 11-03-2022 End: 11-03-[address] Arianna Iyer Work Phone: [facility] Start: 10-18-2022 End: 10-18-[address] Arianna Iyer Work Phone: [facility] Start: 09-29-2022 End: 09-29-[address] Arianna Iyer Work Phone: [facility] Start: 09-01-2022 End: 09-01-[address] Arianna Iyer Work Phone: [facility] Start: 07-10-2022 End: 07-10-[address] Arianna Iyer Work Phone: [place] Work Phone: Start: 07-10-2022 End: 07-10-[address] Arianna Iyer Work Phone: [facility] Start: 07-07-2022 End: 07-07-[address] Arianna Iyer Work Phone: [facility] Start: 06-09-2022 End: 06-09-[address] Arianna Iyer Work Phone: [place] Work Phone: Start: 06-09-2022 End: 06-09-[address] Arianna Iyer Work Phone: [facility] Start: 06-09-2022 End: 06-09-[address] Arianna Iyer Work Phone: [facility] Procedures Date Procedure Procedure Detail Performing Clinician Start: 11-25-2024 Liquid based cervica l cytology screening Dr. Arianna Iyer MD Work Phone: Comment on above: NEGATIVE FOR INTRAEP ITHELIAL LESION OR MALIGNANCY. This liquid based Th inPrep(R) pap test was screened withthe use of an image guided system. The HPV DNA reflex c riteria were not met with this specimenresult therefore, no HPV testing was performed.Performed at: [address] [id number] Director: Sadia Chew MD, Phone: [phone] Start: 10-10-2024 Serologic test for syphilis Dr. Arianna Iyer MD Work Phone: Start: 12-14-2022 Group B Streptococcu s Culture Dr. Arianna Iyer Work Phone: Group B Streptococcu s Culture Dr. Arianna Iyer Work Phone: Urine culture Dr. Arianna keys Work Phone: Urine culture Dr. Arianna keys Work Phone: Plan of Treatment Date Care Activity Detail Author Start: 10-11-2024 Patient discharge [facility] Start: 10-10-2024 Administration of medication [place] Start: 10-10-2024 Application of ice c ollar, cap or bag [place] Start: 10-10-2024 Catheterization of vein [place] Start: 10-10-2024 Introduction of urin tiffanie catheter [place] Start: 10-10-2024 Measuring intake and output [place] Start: 10-10-2024 Notification of physician [place] Start: 10-10-2024 Procedure discontinued [place] Start: 10-10-2024 Provision of activit y privileges [place] Start: 10-10-2024 Vital signs measurements [place] Start: 10-10-2024 End: 10-10-2024 [place] Start: 10-10-2024 Documentation procedure [facility] Start: 10-10-2024 Admission procedure [facility] Start: 01-19-2023 Patient discharge [facility] Start: 01-17-2023 Administration of medication [place] Start: 01-17-2023 Application of ice c ollar, cap or bag [place] Start: 01-17-2023 Catheterization of vein [place] Start: 01-17-2023 Introduction of urin tiffanie catheter [place] Start: 01-17-2023 Measuring intake and output [place] Start: 01-17-2023 Notification of physician [place] Start: 01-17-2023 Procedure discontinued [place] Start: 01-17-2023 Provision of activit y privileges [place] Start: 01-17-2023 Vital signs measurements [place] Start: 01-17-2023 [facility] Start: 01-17-2023 Admission procedure [facility] Start: 06-09-2022 Liquid based cervica l cytology screening [place] Work Phone: CBC W Auto Different ial panel - Blood [place] Work Phone: Hepatitis B surface antigen measurement [place] Work Phone: Hepatitis C antibody measurement [place] Work Phone: HIV 1+2 Ab+HIV1 p24 Ag [Presence] in Serum or Plasma by Immunoassay [place] Work Phone: Path report.final Dx Spec [facility] Work Phone: Patient Education After a Vagina l Delivery (WP) [place] Work Phone: Patient referral [facility] Work Phone: Rubella IgG measurement [facility] Work Phone: Treponema sp Ab [Pre sence] in Serum [place] Work Phone: US Pelvis [facility] Immunizations Immunization Date Immunization Notes Care Provider Fa cility 08-01-2024 tetanus toxoid, redu ananth diphtheria toxoid, and acellular pertussis vaccine, adsorbed Dr. Arianna Iyer MD Work Phone: [place] 04-14-2024 influenza, injectabl e, madin vahe canine kidney, preservative free Dr. Arianna Iyer MD Work Phone: [place] 11-03-2022 tetanus toxoid, redu ananth diphtheria toxoid, and acellular pertussis vaccine, adsorbed Dr. Arianna Iyer Work Phone: [place] Payers Date Payer Category Payer Unknown [id number] Self-pay 2024 Unknown [id number] 2000 Unknown [id number] . [id number] Unknown [facility] [id number] Unknown [id number] 2.16.8 [id number] Unknown [id number] 2.16.8 40.1.005753.3.579.2.462 Unknown [id number] 2.16.8 40.1.583887.3.579.2.462 Unknown [id number] 2.16.8 40.1.097084.3.579.2.462 Unknown [id number] 2.16.8 40.1.590103.3.579.2.462 Unknown [id number] 2.16.8 40.1.512973.3.579.2.462 Unknown [id number] 2.16.8 40.1.188796.3.579.2.462 Unknown [id number] 2.16.8 40.1.989009.3.579.2.462 Unknown [id number] 2.16.8 40.1.468088.3.579.2.462 Unknown [id number] 2.16.8 40.1.982884.3.579.2.462 Unknown [id number] 2.16.8 40.1.968393.3.579.2.462 Unknown [id number] 2.16.8 40.1.842364.3.579.2.462 Unknown [id number] 2.16.8 40.1.111228.3.579.2.462 Unknown [id number] 2.16.8 40.1.918222.3.579.2.462 Unknown [id number] 2.16.8 40.1.971689.3.579.2.462 Unknown [id number] 2.16.8 40.1.588049.3.579.2.462 Unknown [id number] 2.16.8 40.1.896491.3.579.2.462 Unknown [id number] 2.16.8 40.1.437934.3.579.2.462 Unknown [id number] 2.16.8 40.1.867131.3.579.2.462 Unknown [id number] 2.16.8 40.1.385707.3.579.2.462 Unknown [id number] 2.16.8 40.1.463459.3.579.2.462 Unknown [id number] 2.16.8 40.1.988847.3.579.2.462 Social History Date Type Detail Facility Start: 06-09-2022 End: 03-01-2023 Tobacco smoking status NHIS Unknown if ever smoked [place] Start: 2000 Sex Assigned At Female [facility] Patient currentl y [place] Start: 10-10-2024 Tobacco smoking stat us SDIS Never smoked tobacco (finding) [place] Start: 10-11-2024 Sex Female (finding) [facility] Goals Date Patient Goal Desired Activity /State Clinical Notes 06-09-2022 to 10-11-2024 Note Date & Type Note Facility 10-11-2024 Progress note [facility] 10-11-2024 Progress note Note Date/Time October 11, 2024 11:35am [facility] Medical Records Department [address] [place] [address] Progress Note - OBGYN 10/11/24 0323 MR#: [id number] Acct: [id number] Name: MAYELA ARRIETA Rep #:[id number] : 2000 24 From: Misa Bryan CNM PCP: Dr. Arianna Iyer MD Status:ADM I N Location: [place] [address] Subjective Subjective Patient doing well without complaints. Tolerating PO. Ambulating and voiding without difficulty. Feeding well. Denies chest pain, shortness of breath, calf pain/swelling, fevers, chills, lightheadedness. Objective Data Objective Data Vital Signs: Vital Signs Temp Pulse Resp BP Pulse Ox O2 Del Method 97.4 F L 90 16 113/75 16 Room Air 10/11/24 00:00 10/11/24 00:04 10/11/24 00:00 10/11/24 00:04 10/11/24 00:00 10/11/24 00:00 Oxygen Delivery Method Room Air Weight: 174 lb 3.2 oz Body Mass Index (BMI) 29.9 Intake & Output: Intake and Output for Last 24 Hours 10/09/24 10/10/24 10/11/24 23:59 23:59 23:59 Intake Total 1825.01 / 1825.01 Output Total 2300 / 2300 Balance -474.99 / -474.99 Lab / Micro Data Attestation: I reviewed the patient's lab results. 10/10/24 03:20 Labs: Laboratory Results - last 24 hr 10/10/24 03:20: WBC 15.3 H, RBC 4.39, Hgb 12.7, Hct 37.3, MCV 85.0, MCH 28.9, MCHC 34.0, RDW Std Deviation 43.1, RDW Coeff of Susan 13.9, Plt Count 188, MPV 10.1, Immature Gran % (Auto) 1.600 H, Neut % (Auto) 71.3 H, Lymph % (Auto) 15.6 L, Florence % (Auto) 9.8, Eos % (Auto) 1.2, Baso % (Auto) 0.5, Absolute Neuts (auto)10.9 H, Absolute Lymphs (auto) 2.38, Nucleated RBC % 0, Syphilis Total Ab Nonreactive, Blood Type O POSITIVE, Antibody Screen NEGATIVE ROS Constitutional Constitutional: Reports systems reviewed and no addt'l complaints, except as documented; Denies anorexia or headache(s) Cardiovascular Cardiovascular: Reports systems reviewed and no addt'l complaints, except as documented; Denies dizziness, dyspnea, nausea or tachypnea Respiratory/Chest Respiratory/Chest: Reports systems reviewed and no addt'l complaints, except as documented; Denies cough, dyspnea, shortness of breath at rest or tachypnea Gastrointestinal Gastrointestinal: Reports systems reviewed and no addt'l complaints, except as documented; Denies abdominal pain, constipation or nausea Genitourinary Genitourinary: Reports systems reviewed and no addt'l complaints, except as documented; Denies burning urination, difficulty urinating, dysuria, urinary frequency or urinary incontinence Musculoskeletal Musculoskeletal: Reports systems reviewed and no addt'l complaints, except as documented Integumentary Integumentary: Reports systems reviewed and no addt'l complaints, except as documented Neurologic Neurologic: Reports systems reviewed and no addt'l complaints, except as documented; Denies abnormal speech, dizziness or headache(s) Psychiatric Psychiatric: Reports systems reviewed and no addt'l complaints, except as documented Endocrine Endocrinology: Reports systems reviewed and no addt'l complaints, except as documented Hematologic/Lymphatic Hematologic/Lymphatic: Reports systems reviewed and no addt'l complaints, exceptas documented Physical Exam Const alert, oriented x3 and no apparent distress Neck full ROM Resp normal respiratory effort, normal air movement and no retractions Effort and Inspection: able to speak in complete sentences and symmetric chest movement GI soft to palpation Bladder / Kidney Exam: bladder normal to palpation Uterus Palpation: uterus fundus firm Extremity normal to inspection and full ROM Psych mental status grossly normal, thought process normal and cooperative Assessment & Plan (1) Vaginal delivery: COMMENT: KW IAL girl 40.6 PLAN: s/p PPD # 1. routine post delivery care 2. breast feeding- support given 3. rh positive 4. rubella immune 5. Discharge home (2) Choroid plexus cyst of fetus: COMMENT: low risk NIPT, no further fu indicated (3) GBS (group B streptococcus) UTI complicating : COMMENT: not high enough to treat in . treat in labor (4) Supervision of normal : COMMENT: PRR, , JENNYFER 10/04/24, girl SUELMA Cummings, Travis (5) : QUALIFIERS: Weeks of gestation: 40 weeks Qualified Code(s): Z3A.40 - 40 weeks gestation of COMMENT: NIPT low risk, carrier negative last . afp declined. anatomy reveiwed Charges/Coding Multi Select Codes Urinary/Genital Urinary/Genital CPT Codes: No Charge 10/11/24 0323 <Electronically signed by Misa Bryan CNM> Cosigner Signature (if applicable): CC: ~ Signed [place] Work Phone: 1(505) 571-709004-18-2025 Discharge summary Author Misa Bryan [place] Note Date/Time October 10, 2024 8:3 8am [facility] Medical Records Department [address] [place] [id number] Instructions for Home/Discharge Instructions 10/10/24 0838 MR#: [id number] Acct: [id number] Name: MAYELA ARRIEAT ABDI Rep #:[id number] : 2000 24 From: Misa Bryan CNM PCP: Dr. Arianna Iyer MD Status:ADM I N Discharge Instructions Diet Discharge Diet: No restrictions DC O2, CPAP, BIPAP needs Home O2 Discharge instructions: No Dressing / Incision Discharge Activity: Return to Normal Activity May resume sexual activity in: 6-8 weeks Dressing / Incision Call your doctor if you observe: Fever of 101 or Higher, Coldness, Increased Pain, Numbness or Tingling, Change in Color, Inability to urinate, Inability to have a bowel movement, Using more than 1 pad per hour, Shortness of breath, Dizziness, Fainting spells, Swelling in the ankles, Chest pain, Increased palpitations (irregular heartbeat), Calf discomfort and Uncontrolled pain Follow Up Care Please Follow Up With: Misa Bryan CNM When: Please call the office to schedule your follow up appointment in 6 weeks. If you had high blood pressure please call to schedule an appointment in 2 weeks. Test Results: Test results from this visit will be discussed in further detail at your follow- up appointment, if applicable. Discharge Plan Admission Admit Date/Time: 10/10/24 02:54 Attending Provider: Misa Bryan Primary Care Provider: Arianna Iyer Consulting Providers: Colette Berger Discharge Orders/Prescriptions Prescriptions: No Action PNV-DHA 27 mg iron-1 mg -300 mg capsule 1 cap PO DAILY Referrals / Follow Up: Arianna Ieyr MD [Primary Care Provider] - 10/10/24 0838<Electronically signed by Misa Bryan CNM>Misa Bryan CNM CC: Dr. Colette Berger DO; Dr. 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 Arianna Iyer MD Status:ADM I N [facility] - General General Date of Admission: 10/10/24 Date of Service: 10/10/24 HPI Narrative MAYELA ARRIETA, is a 24 F 40.6 weeks who presents to unit in active labor. Maternal Data Information JENNYFER Calculator Estimated Delivery Date Method Current WG Current Estimate 10/04/24 LMP (Certain) 40w 6d Final JENNYFER: 10/04/24 Final JENNYFER Source: US >20 weeks Gestational age: 40.6 PFSH PFSH Home Medications ?Medication ?Instructions ?Recorded ?Last Taken ?Type multivitamin no.47-iron fum 27 1 cap PO DAILY 06/01/22 01/01/23 History mg-folate no.1 1 mg-dha 300 mg capsule (PNV-DHA) Allergy/AdvReac Type Severity Reaction Status Date / Time No Known Allergies Allergy Verified 10/10/24 00:21 Family History Aunt Breast cancer, Onset Age: 40 Maternal Ovarian cancer, Onset Age: 50 Paternal Social History adopted: No household members: spouse housing: house number of children: 1 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 Back to pre weight. 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 Date Name GA/Weeks Outcome Route Bth Weight [facility] Emiliano 40 live - full term 8.5# Male epid ural [facility] Colette Gonzalez Delivery Date: 01/17/23 Last Updated by: Lisa Maya see problem list for complications. Visit Details Expected Delivery Route/Plan Labor Preferences- CB/BF classes: [] labor support person: [] labor intervention preferences: [] pain management options preferred: epidural : [] PP control planned: [] discussed possible routes of delivery and associated risks: [] special requests: [] Plans Covid status: [] Flu vaccine: given Tdap vaccine: given Rhogam: [] LARC form signed: declined movement and labor precautions reviewed. Problem list reviewed and updated with the most current plan of care details and appropriate orders placed. Relevant counseling for the gestational age provided. Continue routine care and follow up unless otherwise noted in visit notes/problem list details OB Flowsheet Initial Weight: Not Recorded Date -?-?-?-?-?-?-?-?-?-?-?-?- EGA Weight BP Urine Prot -?-?-?-?-?-?-?-?-?-?-?-?- Glucose FHR FuHt Pres Dilation -?-?-?-?-?-?-?-?-?-?-?-?- Effaced St Visit Note 03/17/24 -?-?-?-?-?-?-?-?-?-?-?-?- 11w 2d 136 lb 4 oz 108/68 -?-?-?-?-?-?-?-?-?-?-?-?- 163 -?-?-?-?-?-?-?-?-?-?-?-?- JV- CRL measures 4.18 cm. This is consistent with JENNYFER per LMP. Patient desires NIPT with gender. 04/14/24 -?-?-?-?-?-?-?-?-?-?-?-?- 15w 2d 140 lb 110/68 -?-?-?-?-?-?-?-?-?-?-?-?- 150 -?-?-?-?-?--?-?-?-?-?-?-?- SM- no vb crampi ng SM- no vb cramping flu vacci ne given 05/12/24 -?-?-?-?-?-?-?-?-?-?-?-?- 19w 2d 141 lb 92/57 Negative -?-?-?-?-?-?-?-?-?--?-?-?- Negative 145 -?-?-?-?-?-?-?-?-?-?-?-?- KW- no vb/lof/ct x. possible fm. US next week. 06/09/24 -?-?-?-?-?-?-?-?-?-?-?-?- 23w 2d 149 lb 101/67 Negative -?-?-?-?-?-?-?-?-?-?-?-?- Negative 145 23 -?-?-?-?-?-?-?-?-?-?-?-?- KW- no vb/crampi ng. good fm. 28 week labs discussed 07/07/24 -?-?-?-?-?-?-?-?-?-?-?-?- 27w 2d 155 lb 112/69 Negative -?-?-?-?-?-?-?-?-?-?-?-?- Negative 145 27 -?-?-?-?-?-?-?-?-?-?-?-?- KW- no vb/lof/ct x. good fm. LAR and labs today. 08/01/24 -?-?-?-?-?-?-?-?-?-?-?-?- 30w 6d 160 lb 4 oz 109/69 Nega tive -?-?-?-?-?-?-?-?-?-?-?-?- Negative 145 32 -?-?-?-?-?-?-?-?-?-?-?-?- LC- no vb/ctx/lo f.good fm. no concerns today. obtained tdap 08/14/24 -?-?-?-?-?-?-?-?-?-?-?-?- 32w 5d 161 lb 4 oz 101/65 Nega tive -?-?-?-?-?-?-?-?-?-?-?-?- Negative 135 32 -?-?-?-?-?-?-?-?-?-?-?-?- SM- no vb lof go od fm no reuglar ctx SM- no vb lof good fm no reu glar ctx discussed measuring consistent now but the same as loast time, was breech last time. if still the same next visit recommend growth us but if grows then doesn't need. 08/28/24 -?-?-?-?-?-?-?-?-?-?-?-?- 34w 5d 167 lb 2 oz 106/64 Nega tive -?-?-?-?-?-?-?-?-?-?-?-?- Negative 140 35.5 Cephalic -?-?-?-?-?-?-?-?-?-?-?-?- JV- no lof, vagi nal bleeding, or dec fm. JV- no lof, vaginal bleeding , or dec fm. cephalic on ultrasound today (bedside) 09/08/24 -?-?-?-?-?-?-?-?-?-?-?-?- 36w 2d 167 lb 6 oz 104/59 Nega tive -?-?-?-?-?-?-?-?-?-?-?-?- Negative 150 36 Cephalic -?-?-?-?-?-?-?-?-?-?-?-?- KW- no vb/lof/ct x. good fm. GBS pos in urine declines SVE today 09/15/24 -?-?-?-?-?-?-?-?-?-?-?-?- 37w 2d 169 lb 4 oz 105/68 Nega tive -?-?-?-?-?-?-?-?-?-?-?-?- Negative 147 37 Cephalic 1 -?-?-?-?-?-?-?-?-?-?-?-?- 0 -3 JV- no com plaints. labor precautions discussed. 09/22/24 -?-?-?-?-?-?-?-?-?-?-?-?- 38w 2d 169 lb 4 oz 100/62 Nega tive -?-?-?-?-?-?-?-?-?-?-?-?- Negative 150 38 Cephalic 1 -?-?-?-?-?-?-?-?-?-?-?-?- 50 -2 KW- no vb/ lof/ctx. good fm. noticing more BH ctx. labor precautions 09/29/24 -?-?-?-?-?-?-?-?-?-?-?-?- 39w 2d 173 lb 110/64 -?-?-?-?-?-?-?-?-?-?-?-?- 152 38 Cephalic 2 -?-?-?-?-?-?-?-?-?-?-?-?- 80 -2 JV- no lof , vaginal bleeding, or dec fm. 10/06/24 -?-?-?-?-?-?-?-?-?-?-?-?- 40w 2d 176 lb 8 oz 109/65 Nega tive -?-?-?-?-?-?-?-?-?-?-?-?- Negative 148 39 Cephalic 2 -?-?-?-?-?-?-?-?-?-?-?-?- 60 -2 KW- no vb/ lof/reg ctx. good fm. 41 week IOL set up. membrane sweep today NST FHR Rate Baby A Baseline: 140 Variability:: Minimal Accelerations:: 15 x 15 Decelerations:: Variable NST Reactive:: Yes FHR Category:: Category I Uterine Activity:: 2-3 ROS Constitutional Constitutional: Denies change in weight, fatigue, fever(s), headache(s), poor appetite or weakness Eyes Eyes: Denies blurry vision, change in vision, floaters, seeing flashes or spots in vision ENT HEENT: Denies dizziness, headache(s), loss taste/smell or sore throat Cardiovascular Cardiovascular: Denies chest pain, dizziness, dyspnea, irregular heart rhythm, lightheadedness, palpitations or rapid heart rate Respiratory/Chest Respiratory/Chest: Denies change in mental status, chest tightness, cough, dyspnea or breast pain Gastrointestinal Gastrointestinal: Denies anorexia, chewing difficulty, constipation, diarrhea or weight changes Genitourinary Genitourinary: Denies difficulty urinating, dysuria, flank pain, genital pain, urinary frequency or urinary urgency Musculoskeletal Musculoskeletal: Denies back pain, difficulty walking, extremity pain, joint pain, muscle cramps or muscle weakness Integumentary Integumentary: Denies lesions or unusual bruising Neurologic Neurologic: Denies abnormal movements, abnormal speech, dizziness, numbness, seizure-like activity, syncope or weakness Psychiatric Psychiatric: Denies behavioral changes, change in appetite, confusion, depression, homicidal ideation, suicidal ideation or suicidal thoughts Endocrine Endocrinology: Denies excessive sweating, polydipsia or polyuria Hematologic/Lymphatic Hematologic/Lymphatic: Denies anemia Allergic/Immunologic Allergic/Immunologic: Denies itchy eyes, lip swelling, throat swelling, tongue swelling or wheezing Vital Signs Vital Signs Vital Signs: 10/10/24 00:16 10/10/24 00:16 10/10/24 00:16 Temperature Temperature Source Temporal Pulse Rate 93 Respiratory Rate Blood Pressure 115/68 BP Systolic 115 BP Diastolic 68 Pulse Ox 10/10/24 00:16 10/10/24 00:16 10/10/24 00:18 Temperature 98.1 F Temperature Source Pulse Rate 100 Respiratory Rate 16 Blood Pressure BP Systolic BP Diastolic Pulse Ox 10/10/24 00:18 10/10/24 03:15 10/10/24 03:15 Temperature Temperature Source Pulse Rate 98 Respiratory Rate Blood Pressure 111/66 BP Systolic 111 BP Diastolic 66 Pulse Ox 97 10/10/24 03:15 10/10/24 03:15 10/10/24 03:15 Temperature 98.1 F Temperature Source Temporal Pulse Rate Respiratory Rate 16 Blood Pressure BP Systolic BP Diastolic Pulse Ox 10/10/24 03:16 10/10/24 03:16 10/10/24 05:12 Temperature Temperature Source Pulse Rate 96 Respiratory Rate Blood Pressure 113/70 BP Systolic 113 BP Diastolic 70 Pulse Ox 99 10/10/24 05:12 10/10/24 05:12 10/10/24 05:12 Temperature Temperature Source Temporal Pulse Rate 84 Respiratory Rate 16 Blood Pressure BP Systolic BP Diastolic Pulse Ox 10/10/24 05:12 10/10/24 05:55 10/10/24 05:55 Temperature 97.0 F L Temperature Source Pulse Rate 89 Respiratory Rate Blood Pressure BP Systolic BP Diastolic Pulse Ox 100 10/10/24 05:59 10/10/24 05:59 10/10/24 05:59 Temperature Temperature Source Pulse Rate 97 Respiratory Rate 16 Blood Pressure 113/71 BP Systolic 113 BP Diastolic 71 Pulse Ox 10/10/24 06:00 10/10/24 06:00 10/10/24 06:04 Temperature Temperature Source Pulse Rate 101 H Respiratory Rate Blood Pressure 112/71 BP Systolic 112 BP Diastolic 71 Pulse Ox 100 10/10/24 06:04 10/10/24 06:04 10/10/24 06:05 Temperature Temperature Source Pulse Rate 96 103 H Respiratory Rate 16 Blood Pressure BP Systolic BP Diastolic Pulse Ox 10/10/24 06:05 10/10/24 06:09 10/10/24 06:09 Temperature Temperature Source Pulse Rate 107 H Respiratory Rate Blood Pressure 101/55 L BP Systolic 101 BP Diastolic 55 Pulse Ox 100 10/10/24 06:09 10/10/24 06:10 10/10/24 06:10 Temperature Temperature Source Pulse Rate 110 H Respiratory Rate 16 Blood Pressure BP Systolic BP Diastolic Pulse Ox 100 10/10/24 06:14 10/10/24 06:14 10/10/24 06:14 Temperature Temperature Source Pulse Rate 108 H Respiratory Rate 16 Blood Pressure 100/55 L BP Systolic 100 BP Diastolic 55 Pulse Ox 10/10/24 06:15 10/10/24 06:15 10/10/24 06:19 Temperature Temperature Source Pulse Rate 102 H Respiratory Rate Blood Pressure 97/55 L BP Systolic 97 BP Diastolic 55 Pulse Ox 100 10/10/24 06:19 10/10/24 06:19 10/10/24 06:20 Temperature Temperature Source Pulse Rate 100 105 H Respiratory Rate 16 Blood Pressure BP Systolic BP Diastolic Pulse Ox 10/10/24 06:20 10/10/24 06:24 10/10/24 06:24 Temperature Temperature Source Pulse Rate 90 Respiratory Rate Blood Pressure 109/62 BP Systolic 109 BP Diastolic 62 Pulse Ox 100 10/10/24 06:24 10/10/24 06:25 10/10/24 06:25 Temperature Temperature Source Pulse Rate 97 Respiratory Rate 16 Blood Pressure BP Systolic BP Diastolic Pulse Ox 100 10/10/24 06:29 10/10/24 06:29 10/10/24 06:29 Temperature Temperature Source Pulse Rate 98 Respiratory Rate 16 Blood Pressure 96/58 L BP Systolic 96 BP Diastolic 58 Pulse Ox 10/10/24 06:34 10/10/24 06:34 10/10/24 06:34 Temperature Temperature Source Pulse Rate 92 Respiratory Rate 16 Blood Pressure 102/61 BP Systolic 102 BP Diastolic 61 Pulse Ox 10/10/24 06:39 10/10/24 06:39 10/10/24 06:39 Temperature Temperature Source Pulse Rate 93 Respiratory Rate 16 Blood Pressure 96/58 L BP Systolic 96 BP Diastolic 58 Pulse Ox 10/10/24 06:44 10/10/24 06:44 10/10/24 06:44 Temperature Temperature Source Pulse Rate 96 Respiratory Rate 16 Blood Pressure 88/54 L BP Systolic 88 BP Diastolic 54 Pulse Ox 10/10/24 06:51 10/10/24 06:51 10/10/24 06:51 Temperature Temperature Source Pulse Rate 87 Respiratory Rate 16 Blood Pressure 93/51 L BP Systolic 93 BP Diastolic 51 Pulse Ox 10/10/24 06:54 10/10/24 06:54 10/10/24 06:54 Temperature Temperature Source Pulse Rate 96 Respiratory Rate 16 Blood Pressure 91/50 L BP Systolic 91 BP Diastolic 50 Pulse Ox 10/10/24 06:59 10/10/24 06:59 10/10/24 06:59 Temperature Temperature Source Pulse Rate 91 Respiratory Rate 16 Blood Pressure 95/53 L BP Systolic 95 BP Diastolic 53 Pulse Ox 10/10/24 07:04 10/10/24 07:04 10/10/24 07:04 Temperature Temperature Source Pulse Rate 99 Respiratory Rate 16 Blood Pressure 92/53 L BP Systolic 92 BP Diastolic 53 Pulse Ox 10/10/24 07:09 10/10/24 07:09 10/10/24 07:09 Temperature Temperature Source Pulse Rate 94 Respiratory Rate 16 Blood Pressure 93/52 L BP Systolic 93 BP Diastolic 52 Pulse Ox 10/10/24 07:15 10/10/24 07:15 10/10/24 07:17 Temperature Temperature Source Temporal Pulse Rate 92 Respiratory Rate Blood Pressure 99/56 L BP Systolic 99 BP Diastolic 56 Pulse Ox 10/10/24 07:17 10/10/24 07:17 10/10/24 07:30 Temperature 97.8 F Temperature Source Pulse Rate 99 Respiratory Rate 16 Blood Pressure BP Systolic BP Diastolic Pulse Ox 10/10/24 07:30 10/10/24 07:35 10/10/24 07:35 Temperature Temperature Source Pulse Rate 94 Respiratory Rate Blood Pressure BP Systolic BP Diastolic Pulse Ox 100 100 10/10/24 07:54 10/10/24 07:54 10/10/24 07:56 Temperature Temperature Source Pulse Rate 94 Respiratory Rate Blood Pressure 101/57 L BP Systolic 101 BP Diastolic 57 Pulse Ox 100 10/10/24 07:56 10/10/24 07:59 10/10/24 07:59 Temperature Temperature Source Pulse Rate 95 113 H Respiratory Rate Blood Pressure BP Systolic BP Diastolic Pulse Ox 100 Weight Weight: 174 lb 3.2 oz Body Mass Index (BMI) 29.9 Physical Exam Const alert, oriented x3 and no apparent distress General Appearance: cooperative Orientation / Consciousness: awake HEENT normocephalic Neck full ROM Lymph Lymphatic: no lymphadenopathy noted Chest inspection of chest normal Resp normal respiratory effort and normal air movement Effort and Inspection: able to speak in complete sentences and symmetric chest movement GI soft to palpation and non-tender Inspection: gravid Palpation: soft; Negative for tender external exam normal Back/Spine normal to inspection Extremity normal to inspection and full ROM Skin no rashes or lesions noted Psych mental status grossly normal Appearance: grossly normal Speech: normal speech Labs Labs Labs: Blood Type O POSITIVE Antibody Screen NEGATIVE Hct 37.3 % (37-47) Hgb 12.7 g/dL (12.0-15.0) Syphilis Total Ab Nonreactive (Nonreactive) Rubella IgG Antibody Reactive (Nonreactive) Hep Bs Antigen Non-Reactive (Nonreactive) Hepatitis C Antibody Non-Reactive (Nonreactive) Chlamydia DNA (SARAH) Negative (Negative) N.gonorrhoeae DNA (SARAH) Negative (Negative) HIV 1&2 Antibody Non-Reactive (Nonreactive) Glucose 1 Hr 50 gm 80 mg/dL (70-140) Assessment & Plan (1) Vaginal delivery: COMMENT: KW IAL girl 40.6 (2) Choroid plexus cyst of fetus: COMMENT: low risk NIPT, no further fu indicated (3) GBS (group B streptococcus) UTI complicating : COMMENT: not high enough to treat in . treat in labor (4) Supervision of normal : COMMENT: PRR, , JENNYFER 10/04/24, girl SULEMA Cummings, Travis (5) : QUALIFIERS: Weeks of gestation: 40 weeks Qualified Code(s): Z3A.40 - 40 weeks gestation of COMMENT: NIPT low risk, carrier negative last . afp declined. anatomy reveiwed Charges/Coding Multi Select Codes Urinary/Genital Urinary/Genital CPT Codes: No Charge 10/10/24 0803 <Electronically signed by Misa Bryan CNM> Cosigner Signature (if applicable): CC: FARRAH Bryan; Dr. Arianna Iyer MD~ Signed [place] Work Phone: [phone] Discharge summary [facility] Medical Records Department [address] [place] [id number] Instructions for Home/Discharge Instructions 10/10/24 0838 MR#: [id number] Acct: [id number] Name: MAYELA ARRIETA Rep #:[id number] : 2000 24 From: Misa Bryan CNM PCP: Dr. Arianna Iyer MD Status:ADM I N Discharge Instructions Diet Discharge Diet: No restrictions DC O2, CPAP, BIPAP needs Home O2 Discharge instructions: No Dressing / Incision Discharge Activity: Return to Normal Activity May resume sexual activity in: 6-8 weeks Dressing / Incision Call your doctor if you observe: Fever of 101 or Higher, Coldness, Increased Pain, Numbness or Tingling, Change in Color, Inability to urinate, Inability to have a bowel movement, Using more than 1 pad per hour, Shortness of breath, Dizziness, Fainting spells, Swelling in the ankles, Chest pain, Increased palpitations (irregular heartbeat), Calf discomfort and Uncontrolled pain Follow Up Care Please Follow Up With: Misa Bryan CNM When: Please call the office to schedule your follow up appointment in 6 weeks. If you had high blood pressure please call to schedule an appointment in 2 weeks. Test Results: Test results from this visit will be discussed in further detail at your follow- up appointment, if applicable. Discharge Plan Admission Admit Date/Time: 10/10/24 02:54 Attending Provider: Misa Bryan Primary Care Provider: Arianna Iyer Consulting Providers: Colette Berger Discharge Orders/Prescriptions Prescriptions: No Action PNV-DHA 27 mg iron-1 mg -300 mg capsule 1 cap PO DAILY Referrals / Follow Up: Arianna Iyer MD [Primary Care Provider] - 10/10/24 Loretta38Misa Bryan CNM CC: Dr. Colette Berger DO; Dr. Arianna Iyer MD ~ Signed [place]04-18-2025 Procedure note [facility] Medical Records Department [address] [place] [address] OB Vaginal Delivery 10/10/24 0803 MR#: [id number] Acct: [id number] Name: MAYELA ARRIETA Rep #:[id number] : 2000 24 From: Misa Bryan CNM PCP: Dr. Arianna Iyer MD Status:ADM I N Location: [place] [id number] Assessment & Plan (1) Vaginal delivery: COMMENT: KW IAL girl 40.6 (2) Choroid plexus cyst of fetus: COMMENT: low risk NIPT, no further fu indicated (3) GBS (group B streptococcus) UTI complicating : COMMENT: not high enough to treat in . treat in labor (4) Supervision of normal : COMMENT: PRR, , JENNYFER 10/04/24, girl SULEMA Cummings, Travis (5) : QUALIFIERS: Weeks of gestation: 40 weeks Qualified Code(s): Z3A.40 - 40 weeks gestation of COMMENT: NIPT low risk, carrier negative last . afp declined. anatomy reveiwed Maternal Data Information JENNYFER Calculator Estimated Delivery Date Method Current WG Current Estimate 10/04/24 LMP (Certain) 40w 6d Final JENNYFER: 10/04/24 Final JENNYFER Source: >20 weeks Gestational age: 40.6 Vaginal Delivery Maternal Presentation Maternal Presentation: Active Labor Maternal Presentation: Presented to unit for active labor and SROM Vaginal Delivery Information Procedure Performed: Spontaneous Vaginal Delivery Surgeon/Practitioner: Misa Bryan Date of Procedure: 10/10/24 Pre-Procedure Diagnosis: see problem list Post-Procedure Diagnosis: same Type of anesthesia: Epidural Estimated Blood Loss: 350 Time of Delivery: 07:42 Findings Description of procedure: Progressed well to 10cm dilated and made steady progress with effective maternalpushing. Delivered the head in CRISTINA presentation. The head was delivered atraumatically and a tight nuchal cord was identified and infant delivered through. The anterior and posterior shoulders delivered without complication followed by the rest of the and the was placed on the maternal abdomen. Delayed cord clamping was employed for approximately 3 minutes. Cord was clamped and cut and gentle traction was applied to the cord and the placentadelivered spontaneously. Immediately following, it was notedto be intact with a3 vessel cord. Uterine bleeding was noted to be brisk after delivery of placentaand IM Methergine, and pitocin given in addition to IV pitocin. Small clot extracted from lower uterine segment. Uterine bleeding then became stable. The perineum and vagina were inspected and noted to have a first degree laceration which was repaired with 3-0 Vicryl in the usual fashion. EBL was 350. Patient and infant tolerated delivery well. Apgars 8/9. Dr Shelton notified of vaginal delivery and orders reviewed. Physician agrees with current plan of care. 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 Colette Berger DO; Dr. 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 Arianna Iyer MD Status:ADM I N Location: [place] [id number] HPI - General General Date of Admission: 10/10/24 Date of Service: 10/10/24 HPI Narrative MAYELA ARRIETA, is a 24 F 40.6 weeks who presents to unit in active labor. Maternal Data Information JENNYFER Calculator Estimated Delivery Date Method Current WG Current Estimate 10/04/24 LMP (Certain) 40w 6d Final JENNYFER: 10/04/24 Final JENNYFER Source: US >20 weeks Gestational age: 40.6 PFSH PFSH Home Medications ?Medication ?Instructions ?Recorded ?Last Taken ?Type multivitamin no.47-iron fum 27 1 cap PO DAILY 06/01/22 01/01/23 History mg-folate no.1 1 mg-dha 300 mg capsule (PNV-DHA) Allergy/AdvReac Type Severity Reaction Status Date / Time No Known Allergies Allergy Verified 10/10/24 00:21 Family History Aunt Breast cancer, Onset Age: 40 Maternal Ovarian cancer, Onset Age: 50 Paternal Social History adopted: No household members: spouse housing: house number of children: 1 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 Back to pre weight. 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 Date Name GA/Weeks Outcome Route Bth Weight Gen Labor Lgth Anesthesia Del Locatn Provider FOB 01/17/23 Emiliano 40 live - full term 8.5# Male epid ural [facility] Colette Gonzalez Delivery Date: 01/17/23 Last Updated by: Lisa Maya see problem list for complications. Visit Details Expected Delivery Route/Plan Labor Preferences- CB/BF classes: [] labor support person: [] labor intervention preferences: [] pain management options preferred: epidural : [] PP control planned: [] discussed possible routes of delivery and associated risks: [] special requests: [] Plans Covid status: [] Flu vaccine: given Tdap vaccine: given Rhogam: [] LARC form signed: declined movement and labor precautions reviewed. Problem list reviewed and updated with the most current plan of care details and appropriate ordersplaced. Relevant counseling for the gestational age provided. Continue routine care and follow up unless otherwise noted in visit notes/problem list details OB Flowsheet Initial Weight: Not Recorded Date -?-?-?-?-?-?-?-?-?-?-?-?- EGA Weight BP Urine Prot -?-?-?-?-?-?-?-?-?-?-?-?- Glucose FHR FuHt Pres Dilation -?-?-?-?-?-?-?-?-?-?-?-?- Effaced St Visit Note 03/17/24 -?-?-?-?-?-?-?-?-?-?-?-?- 11w 2d 136 lb 4 oz 108/68 -?-?-?-?-?-?-?-?-?-?-?-?- 163 -?-?-?-?-?-?-?-?-?-?-?-?- JV- CRL measures 4.18 cm. This is consistent with JENNYFER per LMP. Patient desires NIPT with gender. 04/14/24 -?-?-?-?-?-?-?-?-?-?-?-?- 15w 2d 140 lb 110/68 -?-?-?-?-?-?-?-?-?-?-?-?- 150 -?-?-?-?-?--?-?-?-?-?-?-?- SM- no vb crampi ng SM- no vb cramping flu vacci ne given 05/12/24 -?-?-?-?-?-?-?-?-?-?-?-?- 19w 2d 141 lb 92/57 Negative -?-?-?-?-?-?-?-?-?--?-?-?- Negative 145 -?-?-?-?-?-?-?-?-?-?-?-?- KW- no vb/lof/ct x. possible fm. US next week. 06/09/24 -?-?-?-?-?-?-?-?-?-?-?-?- 23w 2d 149 lb 101/67 Negative -?-?-?-?-?-?-?-?-?-?-?-?- Negative 145 23 -?-?-?-?-?-?-?-?-?-?-?-?- KW- no vb/crampi ng. good fm. 28 week labs discussed 07/07/24 -?-?-?-?-?-?-?-?-?-?-?-?- 27w 2d 155 lb 112/69 Negative -?-?-?-?-?-?-?-?-?-?-?-?- Negative 145 27 -?-?-?-?-?-?-?-?-?-?-?-?- KW- no vb/lof/ct x. good fm. LAR and labs today. 08/01/24 -?-?-?-?-?-?-?-?-?-?-?-?- 30w 6d 160 lb 4 oz 109/69 Nega tive -?-?-?-?-?-?-?-?-?-?-?-?- Negative 145 32 -?-?-?-?-?-?-?-?-?-?-?-?- LC- no vb/ctx/lo f.good fm. no concerns today. obtained tdap 08/14/24 -?-?-?-?-?-?-?-?-?-?-?-?- 32w 5d 161 lb 4 oz 101/65 Nega tive -?-?-?-?-?-?-?-?-?-?-?-?- Negative 135 32 -?-?-?-?-?-?-?-?-?-?-?-?- SM- no vb lof go od fm no reuglar ctx SM- no vb lof good fm no reu glar ctx discussed measuring consistent now but the same as loast time, was breech last time. if still the same next visit recommend growth us but if grows then doesn't need. 08/28/24 -?-?-?-?-?-?-?-?-?-?-?-?- 34w 5d 167 lb 2 oz 106/64 Nega tive -?-?-?-?-?-?-?-?-?-?-?-?- Negative 140 35.5 Cephalic -?-?-?-?-?-?-?-?-?-?-?-?- JV- no lof, vagi nal bleeding, or dec fm. JV- no lof, vaginal bleeding , or dec fm. cephalic on ultrasound today (bedside) 09/08/24 -?-?-?-?-?-?-?-?-?-?-?-?- 36w 2d 167 lb 6 oz 104/59 Nega tive -?-?-?-?-?-?-?-?-?-?-?-?- Negative 150 36 Cephalic -?-?-?-?-?-?-?-?-?-?-?-?- KW- no vb/lof/ct x. good fm. GBS pos in urine declines SVE today 09/15/24 -?-?-?-?-?-?-?-?-?-?-?-?- 37w 2d 169 lb 4 oz 105/68 Nega tive -?-?-?-?-?-?-?-?-?-?-?-?- Negative 147 37 Cephalic 1 -?-?-?-?-?-?-?-?-?-?-?-?- 0 -3 JV- no com plaints. labor precautions discussed. 09/22/24 -?-?-?-?-?-?-?-?-?-?-?-?- 38w 2d 169 lb 4 oz 100/62 Nega tive -?-?-?-?-?-?-?-?-?-?-?-?- Negative 150 38 Cephalic 1 -?-?-?-?-?-?-?-?-?-?-?-?- 50 -2 KW- no vb/ lof/ctx. good fm. noticing more BH ctx. labor precautions 09/29/24 -?-?-?-?-?-?-?-?-?-?-?-?- 39w 2d 173 lb 110/64 -?-?-?-?-?-?-?-?-?-?-?-?- 152 38 Cephalic 2 -?-?-?-?-?-?-?-?-?-?-?-?- 80 -2 JV- no lof , vaginal bleeding, or dec fm. 10/06/24 -?-?-?-?-?-?-?-?-?-?-?-?- 40w 2d 176 lb 8 oz 109/65 Nega tive -?-?-?-?-?-?-?-?-?-?-?-?- Negative 148 39 Cephalic 2 -?-?-?-?-?-?-?-?-?-?-?-?- 60 -2 KW- no vb/ lof/reg ctx. good fm. 41 week IOL set up. membrane sweep today NST FHR Rate Baby A Baseline: 140 Variability:: Minimal Accelerations:: 15 x 15 Decelerations:: Variable NST Reactive:: Yes FHR Category:: Category I Uterine Activity:: 2-3 ROS Constitutional Constitutional: Denies change in weight, fatigue, fever(s), headache(s), poor appetite or weakness Eyes Eyes: Denies blurry vision, change in vision, floaters, seeing flashes or spots in vision ENT HEENT: Denies dizziness, headache(s), loss taste/smell or sore throat Cardiovascular Cardiovascular: Denies chest pain, dizziness, dyspnea, irregular heart rhythm, lightheadedness, palpitations or rapid heart rate Respiratory/Chest Respiratory/Chest: Denies change in mental status, chest tightness, cough, dyspnea or breast pain Gastrointestinal Gastrointestinal: Denies anorexia, chewing difficulty, constipation, diarrhea or weight changes Genitourinary Genitourinary: Denies difficulty urinating, dysuria, flank pain, genital pain, urinary frequency orurinary urgency Musculoskeletal Musculoskeletal: Denies back pain, difficulty walking, extremity pain, joint pain, muscle cramps ormuscle weakness Integumentary Integumentary: Denies lesions or unusual bruising Neurologic Neurologic: Denies abnormal movements, abnormal speech, dizziness, numbness, seizure-like activity,syncope or weakness Psychiatric Psychiatric: Denies behavioral changes, change in appetite, confusion, depression, homicidal ideation, suicidal ideation or suicidal thoughts Endocrine Endocrinology: Denies excessive sweating, polydipsia or polyuria Hematologic/Lymphatic Hematologic/Lymphatic: Denies anemia Allergic/Immunologic Allergic/Immunologic: Denies itchy eyes, lip swelling, throat swelling, tongue swelling or wheezing Vital Signs Vital Signs Vital Signs: 10/10/24 00:16 10/10/24 00:16 10/10/24 00:16 Temperature Temperature Source Temporal Pulse Rate 93 Respiratory Rate Blood Pressure 115/68 BP Systolic 115 BP Diastolic 68 Pulse Ox 10/10/24 00:16 10/10/24 00:16 10/10/24 00:18 Temperature 98.1 F Temperature Source Pulse Rate 100 Respiratory Rate 16 Blood Pressure BP Systolic BP Diastolic Pulse Ox 10/10/24 00:18 10/10/24 03:15 10/10/24 03:15 Temperature Temperature Source Pulse Rate 98 Respiratory Rate Blood Pressure 111/66 BP Systolic 111 BP Diastolic 66 Pulse Ox 97 10/10/24 03:15 10/10/24 03:15 10/10/24 03:15 Temperature 98.1 F Temperature Source Temporal Pulse Rate Respiratory Rate 16 Blood Pressure BP Systolic BP Diastolic Pulse Ox 10/10/24 03:16 10/10/24 03:16 10/10/24 05:12 Temperature Temperature Source Pulse Rate 96 Respiratory Rate Blood Pressure 113/70 BP Systolic 113 BP Diastolic 70 Pulse Ox 99 10/10/24 05:12 10/10/24 05:12 10/10/24 05:12 Temperature Temperature Source Temporal Pulse Rate 84 Respiratory Rate 16 Blood Pressure BP Systolic BP Diastolic Pulse Ox 10/10/24 05:12 10/10/24 05:55 10/10/24 05:55 Temperature 97.0 F L Temperature Source Pulse Rate 89 Respiratory Rate Blood Pressure BP Systolic BP Diastolic Pulse Ox 100 10/10/24 05:59 10/10/24 05:59 10/10/24 05:59 Temperature Temperature Source Pulse Rate 97 Respiratory Rate 16 Blood Pressure 113/71 BP Systolic 113 BP Diastolic 71 Pulse Ox 10/10/24 06:00 10/10/24 06:00 10/10/24 06:04 Temperature Temperature Source Pulse Rate 101 H Respiratory Rate Blood Pressure 112/71 BP Systolic 112 BP Diastolic 71 Pulse Ox 100 10/10/24 06:04 10/10/24 06:04 10/10/24 06:05 Temperature Temperature Source Pulse Rate 96 103 H Respiratory Rate 16 Blood Pressure BP Systolic BP Diastolic Pulse Ox 10/10/24 06:05 10/10/24 06:09 10/10/24 06:09 Temperature Temperature Source Pulse Rate 107 H Respiratory Rate Blood Pressure 101/55 L BP Systolic 101 BP Diastolic 55 Pulse Ox 100 10/10/24 06:09 10/10/24 06:10 10/10/24 06:10 Temperature Temperature Source Pulse Rate 110 H Respiratory Rate 16 Blood Pressure BP Systolic BP Diastolic Pulse Ox 100 10/10/24 06:14 10/10/24 06:14 10/10/24 06:14 Temperature Temperature Source Pulse Rate 108 H Respiratory Rate 16 Blood Pressure 100/55 L BP Systolic 100 BP Diastolic 55 Pulse Ox 10/10/24 06:15 10/10/24 06:15 10/10/24 06:19 Temperature Temperature Source Pulse Rate 102 H Respiratory Rate Blood Pressure 97/55 L BP Systolic 97 BP Diastolic 55 Pulse Ox 100 10/10/24 06:19 10/10/24 06:19 10/10/24 06:20 Temperature Temperature Source Pulse Rate 100 105 H Respiratory Rate 16 Blood Pressure BP Systolic BP Diastolic Pulse Ox 10/10/24 06:20 10/10/24 06:24 10/10/24 06:24 Temperature Temperature Source Pulse Rate 90 Respiratory Rate Blood Pressure 109/62 BP Systolic 109 BP Diastolic 62 Pulse Ox 100 10/10/24 06:24 10/10/24 06:25 10/10/24 06:25 Temperature Temperature Source Pulse Rate 97 Respiratory Rate 16 Blood Pressure BP Systolic BP Diastolic Pulse Ox 100 10/10/24 06:29 10/10/24 06:29 10/10/24 06:29 Temperature Temperature Source Pulse Rate 98 Respiratory Rate 16 Blood Pressure 96/58 L BP Systolic 96 BP Diastolic 58 Pulse Ox 10/10/24 06:34 10/10/24 06:34 10/10/24 06:34 Temperature Temperature Source Pulse Rate 92 Respiratory Rate 16 Blood Pressure 102/61 BP Systolic 102 BP Diastolic 61 Pulse Ox 10/10/24 06:39 10/10/24 06:39 10/10/24 06:39 Temperature Temperature Source Pulse Rate 93 Respiratory Rate 16 Blood Pressure 96/58 L BP Systolic 96 BP Diastolic 58 Pulse Ox 10/10/24 06:44 10/10/24 06:44 10/10/24 06:44 Temperature Temperature Source Pulse Rate 96 Respiratory Rate 16 Blood Pressure 88/54 L BP Systolic 88 BP Diastolic 54 Pulse Ox 10/10/24 06:51 10/10/24 06:51 10/10/24 06:51 Temperature Temperature Source Pulse Rate 87 Respiratory Rate 16 Blood Pressure 93/51 L BP Systolic 93 BP Diastolic 51 Pulse Ox 10/10/24 06:54 10/10/24 06:54 10/10/24 06:54 Temperature Temperature Source Pulse Rate 96 Respiratory Rate 16 Blood Pressure 91/50 L BP Systolic 91 BP Diastolic 50 Pulse Ox 10/10/24 06:59 10/10/24 06:59 10/10/24 06:59 Temperature Temperature Source Pulse Rate 91 Respiratory Rate 16 Blood Pressure 95/53 L BP Systolic 95 BP Diastolic 53 Pulse Ox 10/10/24 07:04 10/10/24 07:04 10/10/24 07:04 Temperature Temperature Source Pulse Rate 99 Respiratory Rate 16 Blood Pressure 92/53 L BP Systolic 92 BP Diastolic 53 Pulse Ox 10/10/24 07:09 10/10/24 07:09 10/10/24 07:09 Temperature Temperature Source Pulse Rate 94 Respiratory Rate 16 Blood Pressure 93/52 L BP Systolic 93 BP Diastolic 52 Pulse Ox 10/10/24 07:15 10/10/24 07:15 10/10/24 07:17 Temperature Temperature Source Temporal Pulse Rate 92 Respiratory Rate Blood Pressure 99/56 L BP Systolic 99 BP Diastolic 56 Pulse Ox 10/10/24 07:17 10/10/24 07:17 10/10/24 07:30 Temperature 97.8 F Temperature Source Pulse Rate 99 Respiratory Rate 16 Blood Pressure BP Systolic BP Diastolic Pulse Ox 10/10/24 07:30 10/10/24 07:35 10/10/24 07:35 Temperature Temperature Source Pulse Rate 94 Respiratory Rate Blood Pressure BP Systolic BP Diastolic Pulse Ox 100 100 10/10/24 07:54 10/10/24 07:54 10/10/24 07:56 Temperature Temperature Source Pulse Rate 94 Respiratory Rate Blood Pressure 101/57 L BP Systolic 101 BP Diastolic 57 Pulse Ox 100 10/10/24 07:56 10/10/24 07:59 10/10/24 07:59 Temperature Temperature Source Pulse Rate 95 113 H Respiratory Rate Blood Pressure BP Systolic BP Diastolic Pulse Ox 100 Weight Weight: 174 lb 3.2 oz Body Mass Index (BMI) 29.9 Physical Exam Const alert, oriented x3 and no apparent distress General Appearance: cooperative Orientation / Consciousness: awake HEENT normocephalic Neck full ROM Lymph Lymphatic: no lymphadenopathy noted Chest inspection of chest normal Resp normal respiratory effort and normal air movement Effort and Inspection: able to speak in complete sentences and symmetric chest movement GI soft to palpation and non-tender Inspection: gravid Palpation: soft; Negative for tender external exam normal Back/Spine normal to inspection Extremity normal to inspection and full ROM Skin no rashes or lesions noted Psych mental status grossly normal Appearance: grossly normal Speech: normal speech Labs Labs Labs: Blood Type O POSITIVE Antibody Screen NEGATIVE Hct 37.3 % (37-47) Hgb 12.7 g/dL (12.0-15.0) Syphilis Total Ab Nonreactive (Nonreactive) Rubella IgG Antibody Reactive (Nonreactive) Hep Bs Antigen Non-Reactive (Nonreactive) Hepatitis C Antibody Non-Reactive (Nonreactive) Chlamydia DNA (SARAH) Negative (Negative) N.gonorrhoeae DNA (SARAH) Negative (Negative) HIV 1&2 Antibody Non-Reactive (Nonreactive) Glucose 1 Hr 50 gm 80 mg/dL (70-140) Assessment & Plan (1) Vaginal delivery: COMMENT: KW IAL girl 40.6 (2) Choroid plexus cyst of fetus: COMMENT: low risk NIPT, no further fu indicated (3) GBS (group B streptococcus) UTI complicating : COMMENT: not high enough to treat in . treat in labor (4) Supervision of normal : COMMENT: PRR, , JENNYFER 10/04/24, girl SULEMA Cummings, Travis (5) : QUALIFIERS: Weeks of gestation: 40 weeks Qualified Code(s): Z3A.40 - 40 weeks gestation of COMMENT: NIPT low risk, carrier negative last . afp declined. anatomy reveiwed Charges/Coding Multi Select Codes Urinary/Genital Urinary/Genital CPT Codes: No Charge 10/10/24 0803 Cosigner Signature (if applicable): CC: FARRAH Bryan; Dr. Arianna Iyer MD~ Signed [place]02-20-2025 Evaluation note* Diagnosis Onset Date Resolution Status Admit Date resolved August 14, 2024 3:18pm Supervision of normal resolved August 14 025 3:18pm Choroid plexus cyst of fetus deleted August 14, 2024 3:18pm GBS (group B streptococcus) UTI complicating deleted 2024 3:18pm resolved August 28 11:21am Supervision of normal resolved August 28, 2024 11:21am Choroid plexus cyst of fetus deleted August 28, 2024 11:21am GBS (group B streptococcus) UTI complicating deleted August 28, 2024 11:21am resolved September 08 9:06am Supervision of normal resolved September 08, 2024 9:06am Choroid plexus cyst of fetus deleted September 08, 2024 9:06am GBS (group B streptococcus) UTI complicating deleted September 08, 2024 9:06am resolved September 15 11:08am Supervision of normal resolved September 15, 2024 11:08am Choroid plexus cyst of fetus deleted September 15, 2024 11:08am GBS (group B streptococcus) UTI complicating deleted September 15, 2024 11:08am resolved September 22 11:16am Supervision of normal resolved September 22, 2024 11:16am Choroid plexus cyst of fetus deleted September 22, 2024 11:16am GBS (group B streptococcus) UTI complicating deleted September 22, 2024 11:16am resolved September 29 1:44pm Supervision of normal resolved September 29, 2024 1:44pm Choroid plexus cyst of fetus deleted September 29, 2024 1:44pm GBS (group B streptococcus) UTI complicating deleted September 29, 2024 1:44pm resolved October 06 2:02pm Supervision of normal resolved October 06, 2024 2:02pm Choroid plexus cyst of fetus deleted October 06, 2024 2:02pm GBS (group B streptococcus) UTI complicating deleted October 06, 2024 2:02pm Vaginal delivery acute October 102024 2:54am resolved October 10 2:54am Supervision of normal resolved October 10, 2024 2:54am Choroid plexus cyst of fetus deleted October 10, 2024 2:54am GBS (group B streptococcus) UTI complicating deleted October 10, 2024 2:54am Vaginal lesion acute November 25, 2024 10:33am Routine Follow-Up noneact vicki November 25, 2024 10:33am [place] Work Phone: 1(929) 229-987102-07-2025 Evaluation note* Diagnosis Onset Date Resolution Status Admit Date Choroid plexus cyst of fetus acute August 01, 2024 4:07pm GBS (group B streptococcus) UTI complicating acute Febru 2024 4:07pm acute August 01, 2024 4:07pm Supervision of normal acute August 01 4:07pm Choroid plexus cyst of fetus acute August 14, 2024 3:18pm GBS (group B streptococcus) UTI complicating acute Febru 2024 3:18pm acute August 14, 2024 3:18pm Supervision of normal acute August 14 3:18pm Choroid plexus cyst of fetus acute August 28, 2024 11:21am GBS (group B streptococcus) UTI complicating acute August 28, 2024 11:21am acute August 28 11:21am Supervision of normal acute August 28, 2024 11:21am Choroid plexus cyst of fetus acute September 08, 2024 9:06am GBS (group B streptococcus) UTI complicating acute September 08, 2024 9:06am acute September 08 9:06am Supervision of normal acute September 08, 2024 9:06am Choroid plexus cyst of fetus acute September 15, 2024 11:08am GBS (group B streptococcus) UTI complicating acute September 15, 2024 11:08am acute September 15 11:08am Supervision of normal acute September 15, 2024 11:08am Choroid plexus cyst of fetus acute September 22, 2024 11:16am GBS (group B streptococcus) UTI complicating acute September 22, 2024 11:16am acute September 22 11:16am Supervision of normal acute September 22, 2024 11:16am Choroid plexus cyst of fetus acute September 29, 2024 1:44pm GBS (group B streptococcus) UTI complicating acute September 29, 2024 1:44pm acute September 29 1:44pm Supervision of normal acute September 29, 2024 1:44pm Choroid plexus cyst of fetus acute October 06, 2024 2:02pm GBS (group B streptococcus) UTI complicating acute October 06, 2024 2:02pm acute October 06 2:02pm Supervision of normal acute October 06, 2024 2:02pm Choroid plexus cyst of fetus acute October 10, 2024 2:54am GBS (group B streptococcus) UTI complicating acute October 10, 2024 2:54am acute October 10 2:54am Supervision of normal acute October 10, 2024 2:54am Vaginal delivery acute October 102024 2:54am [place] Work Phone: 1([phone] 104-416607-28-2023 Progress note Author Pamela Cortez [place] January 19, 2023 9:26am Note Date/Time January 19, 2023 9:25 am [facility] Medical Records Department [address] [place] [address] Progress Note - OBGYN 01/19/2324 MR#: [id number] Acct: [id number] Name: MAYELA ARRIETA ABDI Rep #:[id number] : 2000 22 From: Pamela Cortez CNM PCP: Dr. Arianna Iyer MD Status:ADM I N Location: [place] [address] Subjective Subjective Patient doing well without complaints. Tolerating PO. Ambulating and voiding without difficulty. Feeding well. Denies chest pain, shortness of breath, calf pain/swelling, fevers, chills, lightheadedness. Objective Data Objective Data Vital Signs: Vital Signs Temp Pulse Resp BP Pulse Ox O2 Del Method 97.6 F L 74 16 105/70 98 Room Air 01/19/23 08:34 01/19/23 08:34 01/19/23 08:34 01/19/23 08:34 01/19/23 08:34 01/19/23 08:34 Oxygen Delivery Method Room Air Weight: 162 lb 0.636 oz Body Mass Index (BMI) 27.8 Intake & Output: Intake and Output for Last 24 Hours 01/17/23 01/18/23 01/19/23 23:59 23:59 23:59 Intake Total 3555.00 / 3555.00 250 / 250 Output Total 302 / 302 500 / 500 Balance 3253.00 / 3253.00 -250 / -250 Lab / Micro Data 01/17/23 00:04 Physical Exam Const alert and no apparent distress Chest inspection of chest normal Nipple/Areola: nipples/areola normal Resp normal respiratory effort, normal air movement, no retractions and no use of accessory muscles Cardio regular rate GI normal to inspection, nondistended, normoactive bowel sounds GI Narrative: fundus firn, 1 below u, no clots. normal lochia Extremity normal to inspection, no calf tenderness and no pedal edema Psych mental status grossly normal Assessment & Plan (1) Spontaneous vaginal delivery: COMMENT: 01/17/23 Melvin JMalia 01/19/23924 <Electronically signed by Pamela Cortez CNM> Cosigner Signature (if applicable): CC: ~ Signed ADDENDUM by FARRAH Cortez on 01/19/23 at 925 Addendum s/p PPD # 1. routine post delivery care 2. breast feeding- support given 3. rh positive 4. 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 Arianna Iyer MD Status:ADM I N Location: [place] [address] Subjective Subjective Patient doing well without complaints. Tolerating PO. Ambulating and voiding without difficulty. Feeding well. Denies chest pain, shortness of breath, calf pain/swelling, fevers, chills, lightheadedness. Objective Data Objective Data Vital Signs: Vital Signs Temp Pulse Resp BP Pulse Ox 97.6 F L 61 16 121/49 H 100 01/18/23 03:35 01/18/23 03:35 01/18/23 03:35 01/18/23 03:35 01/17/23 17:18 Weight: 162 lb 0.636 oz Body Mass Index (BMI) 27.8 Intake & Output: Intake and Output for Last 24 Hours 01/16/23 01/17/23 01/18/23 23:59 23:59 23:59 Intake Total 3555.00 / 3555.00 250 / 250 Output Total 302 / 302 300 / 300 Balance 3253.00 / 3253.00 -50 / -50 Lab / Micro Data 01/17/23 00:04 Physical Exam Const alert and oriented x3 HEENT normocephalic Eyes PERRL Neck full ROM Resp normal respiratory effort GI soft to palpation GI Narrative: FF below U Assessment & Plan (1) Spontaneous vaginal delivery: COMMENT: 01/17/23 Melvin FUENTES PLAN: Plan s/p PPD # 1 1. routine post delivery care 2. breast feeding- support given 3. rh positive 4. rubella immune 01/18/23 0752 <Electronically signed by Ailyn Roper NP PASSENGER SERVICE SUPERVISOR-C> Cosigner Signature (if applicable): CC: ~ Signed [place] Work Phone: 1([phone] 100-538907-26-2023 Discharge summary Author Colette Zamarripa [place] January 17, 2023 9:36pm Note Date/Time January 17, 2023 9:36 pm [facility] Medical Records Department [address] [place] [address] Instructions for Home/Discharge Instructions 01/17/23 2136 MR#: [id number] Acct: [id number] Name: MAYELA ARRIETA ABDI Rep #:[id number] : 2000 22 From: Colette Berger DO PCP: Dr. Arianna Iyer MD Status:ADM I N Discharge Instructions Diet Discharge Diet: No restrictions Activity Discharge Activity: Return to Normal Activity, May Not Drive (while taking narcotic pain medications.) and May Shower May resume sexual activity in: 4-6 weeks Dressing / Incision Call your doctor if your incision/area has: Continuous Slow Oozing, Sudden Increased Bleeding, Increased Pain/ Swelling, Increased Redness and Foul Smelling Discharge Follow Up Care Please Follow Up With: Colette Berger DO When: Call [phone] to make an appointment with your doctor in 6 weeks. If you had elevated blood pressure or 4th degree laceration, you will need to be seen in 2 weeks. Test Results: Test results from this visit will be discussed in further detail at your follow- up appointment, if applicable. Discharge Plan Admission Admit Date/Time: 01/17/23 00:35 Attending Provider: Colette Berger Primary Care Provider: Arianna Iyer Discharge Orders/Prescriptions Prescriptions: No Action PNV-DHA 27 mg iron-1 mg -300 mg capsule PO Referrals / Follow Up: Arianna Iyer MD [Primary Care Provider] - 01/17/232135<Electronically signed by Colette Berger DO>Colette Berger DO CC: Dr. Arianna Iyer MD ~ Signed [place] Work Phone: 1([phone]) 438-317307-26-2023 Procedure [facility] 01-17-2023 Progress note Author Colette Zamarripa [place] January 17, 2023 8:08am Note Date/Time January 17, 2023 8:08 am [facility] Medical Records Department [address] [place] [address] Progress Note 01/17/23 08 MR#: [id number] Acct: [id number] Name: MAYELA ARRIETA Rep #:[id number] : 2000 22 From: Colette Berger DO PCP: Dr. Arianna Iyer MD Status:ADM I N Location: [place] [id number] Progress Note pt is sitting up in bed without complaint. nurses report that she has a forebag present and she consents to rupture. current tracing: FHT: Moderate variability reactive no decelerations category I tracing [place]: irregular Contractions cx: 3/70/-2, forebag of water ruptured with clear fluid return A/P: srom gbs pos- has received pcn starting pitocin now- pt requesting epidural soon. 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 Arianna Iyer MD Status:ADM I N Location: [id number] HPI - General General Date of Admission: 01/17/23 Date of Service: 01/17/23 HPI Narrative MAYELA ARRIETA, is a 22 F 40.5 weeks who presents for SROM at 2300 on 01/16/23 for clear fluid. Maternal Data Information JENNYFER Calculator Estimated Delivery Date Method Current WG Current Estimate 01/12/23 LMP (Certain) 40w 5d Other Estimates 01/07/23 Ultrasound #1 41w 3d Final JENNYFER: 01/12/23 Final JENNYFER Source: US >20 weeks Gestational age: 40.5 weeks PFSH PFSH Medical History no medical history Home Medications multivitamin no.47-iron fum 27 mg-folate no.1 1 mg-dha 300 mg capsule (PNV- DHA)cap PO 06/01/22 [History Last Taken 01/01/23] Allergy/AdvReac Type Severity Reaction Status Date / Time No Known Allergies Allergy Verified 01/17/23 00:06 Family History Aunt Breast cancer, Onset Age: 40 Maternal Ovarian cancer, Onset Age: 50 Paternal Surgical History no surgical history Social History adopted: No household members: spouse housing: house current occupational status: employed 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 current occupational exposures/hazards: No pets and animals: No history of recent travel: Yes ([place]) out of state: Yes out of country: No sexually active: Yes Smoking Status: Never smoker alcohol intake: former details: socially a few times a year- not while substance use type: does not use well-balanced diet: daily or most days caffeine: No eating out: 1-3 times/week during the past year weight has: remained stable what type of physical activity do you participate in: other details: crossfit frequency: 3-4 times per week duration: 45-60 minutes/day delmi/holiness: Jainism seatbelt use: sometimes do you feel safe at home: Yes additional social history: 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 [employer] History 1 Elective abortions Hx Para 0 Spontaneous abortions Hx # Term Pregnancies Ectopic pregnancies Hx # Pregnancies Multiple births # of living children Visit Details Expected Delivery Route/Plan Labor Preferences- CB/BF classes: completed labor support person: Travis labor intervention preferences: [] pain management options preferred: epidural cut cord/dad catch: no : yes PP control planned: discussed discussed possible routes of delivery and associated risks: [] special requests: [] Plans Covid status: discussed Flu vaccine: discussed Tdap vaccine: Rhogam: NA LARC form signed: yes movement and labor precautions reviewed. Problem list reviewed and updated with the most current plan of care details and appropriate orders placed. Relevant counseling for the gestational age provided. Continue routine care and follow up unless otherwise noted in visit notes/problem list details OB Flowsheet Initial Weight: Not Recorded Date -?-?-?-?-?-?-?-?-?-?-?-?- EGA Weight BP Urine Prot -?-?-?-?-?-?-?-?-?-?-?-?- Glucose FHR FuHt Pres Dilation -?-?-?-?-?-?-?-?-?-?-?-?- Effaced St Visit Note 06/09/22 -?-?-?-?-?-?-?-?-?-?-?-?- 9w 0d 125 lb 8 oz 117/77 -?-?-?-?-?-?-?-?-?-?-?-?- 170 -?-?-?-?-?-?-?-?-?-?-?-?- JV- single live IUP measuring 9weeks 5 days. (within 7 days of LMP) 07/07/22 -?-?-?-?-?-?-?-?-?-?-?-?- 13w 0d 128 lb 113/63 Negative -?-?-?-?-?-?-?-?-?-?-?-?- Negative 165 -?-?-?-?-?-?-?-?-?-?-?-?- JV- no complaint s today. labs to be drawn today. 08/03/22 -?-?-?-?-?-?-?-?-?-?-?-?- 16w 6d 134 lb 116/64 Negative -?-?-?-?-?-?-?-?-?-?-?-?- Negative 153 -?-?-?-?-?-?-?-?-?-?-?-?- MH-no VB, crampi ng. Normal PN labs and genetics. 09/01/22 -?-?-?-?-?-?-?-?-?-?-?-?- 21w 0d 139 lb 6 oz 119/67 Nega tive -?-?-?-?-?-?-?-?-?-?-?-?- Negative 146 21 -?-?-?-?-?-?-?-?--?-?-?-?- LC- no vb/crampi ng. normal anatomy. 09/29/22 -?-?-?-?-?-?-?-?-?-?-?-?- 25w 0d 144 lb 6 oz 97/61 Nega tive -?-?-?-?-?-?-?-?-?-?-?-?- Negative 140 25 -?-?-?-?-?-?-?-?-?-?-?-?- Sm- no vb lof go od fm no regular ctx 10/18/22 -?-?-?-?-?-?-?-?-?-?-?-?- 27w 5d 148 lb 107/67 Negative -?-?-?-?-?-?-?-?-?-?-?-?- Negative 135 27 -?-?-?-?-?-?-?-?-?-?-?-?- JV- gct pending from today. no anemia. She is experiencing restless legs. 11/03/22 -?-?-?-?-?-?-?-?-?-?-?-?- 30w 0d 148 lb 6 oz 114/62 Nega tive -?-?-?-?-?-?-?-?-?-?-?-?- Negative 140 30 -?-?-?-?-?-?-?-?-?-?-?-?- JV- normal GCT. no complaints. TDAP today. 11/16/22 -?-?-?-?-?-?-?-?-?-?-?-?- 31w 6d 151 lb 2 oz 98/78 Nega tive -?-?-?-?-?-?-?-?-?-?-?-?- Negative 141 31 -?-?-?-?-?-?-?-?-?-?-?-?- MH-No VB, LOF. G ood FM. Denies concerns 11/30/22 -?-?-?-?-?-?-?-?-?-?-?-?- 33w 6d 156 lb 8 oz 123/66 Nega tive -?-?-?-?-?-?-?-?-?-?-?-?- Negative 140 34 Cephalic -?-?-?-?-?-?-?-?-?-?-?-?- Sm- no vb lof go od fm no regular ctx 12/14/22 -?-?-?-?-?-?-?-?-?--?-?-?- 35w 6d 158 lb 6 oz 116/67 Nega tive -?-?-?-?-?-?-?-?-?-?-?-?- Negative 144 35 Cephalic -?-?-?-?-?-?-?-?-?-?-?-?- JV- no lof, vagi nal bleeding, or dec fm. GBS collected. no complaints. 12/21/22 -?-?-?-?-?-?-?-?-?-?-?-?- 36w 6d 159 lb 2 oz 101/58 -?-?-?-?-?-?-?-?-?-?-?-?- 140 37 Cephalic 1 -?-?-?-?-?-?-?-?-?-?-?-?- 20 -3 SM- no vb lof good fm no regular ctx 12/28/22 -?-?-?-?-?-?-?-?-?-?-?-?- 37w 6d 161 lb 6 oz 110/65 Nega tive -?-?-?-?-?-?-?-?-?-?-?-?- Negative 130 39 Cephalic 1 -?-?-?-?-?-?-?-?-?-?-?-?- 50 -2 JV- no lof , vaginal bleeding, or dec fm. labor precautions discussed. 01/05/23 -?-?-?-?-?-?-?-?-?-?-?-?- 39w 0d 164 lb 8 oz 112/67 -?-?-?-?-?-?-?-?-?-?-?-?- 130 39 Cephalic 1.5 -?-?-?-?-?-?-?-?-?-?-?-?- 60 -2 SM- no vb of good fm no regular ctx 01/11/23 -?-?-?-?-?-?-?-?-?-?-?-?- 39w 6d 166 lb 4 oz 110/67 Nega tive -?-?-?-?-?-?-?-?-?-?-?-?- Negative 145 39 Cephalic 2 -?-?-?-?-?-?-?-?-?-?-?-?- 70 -2 JV- IOL se t up for next week. no complaints today. NST FHR Rate Baby A Baseline: 135 Variability:: Moderate Accelerations:: 15 x 15 Decelerations:: None NST Reactive:: Yes FHR Category:: Category I Uterine Activity:: 4-5 minutes ROS Constitutional Constitutional: Denies change in weight, fatigue, fever(s), headache(s), poor appetite or weakness Eyes Eyes: Denies blurry vision, change in vision, floaters, seeing flashes or spots in vision ENT HEENT: Denies dizziness, headache(s), loss taste/smell or sore throat Cardiovascular Cardiovascular: Denies chest pain, dizziness, dyspnea, irregular heart rhythm, lightheadedness, palpitations or rapid heart rate Respiratory/Chest Respiratory/Chest: Denies change in mental status, chest tightness, cough, dyspnea or breast pain Gastrointestinal Gastrointestinal: Denies anorexia, chewing difficulty, constipation, diarrhea or weight changes Genitourinary Genitourinary: Denies difficulty urinating, dysuria, flank pain, genital pain, urinary frequency or urinary urgency Musculoskeletal Musculoskeletal: Denies back pain, difficulty walking, extremity pain, joint pain, muscle cramps or muscle weakness Integumentary Integumentary: Denies lesions or unusual bruising Neurologic Neurologic: Denies abnormal movements, abnormal speech, dizziness, numbness, seizure-like activity, syncope or weakness Psychiatric Psychiatric: Denies behavioral changes, change in appetite, confusion, depression, homicidal ideation, suicidal ideation or suicidal thoughts Endocrine Endocrinology: Denies excessive sweating, polydipsia or polyuria Hematologic/Lymphatic Hematologic/Lymphatic: Denies anemia Allergic/Immunologic Allergic/Immunologic: Denies itchy eyes, lip swelling, throat swelling, tongue swelling or wheezing Vital Signs Vital Signs Vital Signs: 01/17/23 00:11 01/17/23 00:11 01/17/23 00:11 Temperature Temperature Source Temporal Pulse Rate 95 Blood Pressure 121/72 H BP Systolic 121 BP Diastolic 72 Pulse Ox 01/17/23 00:11 01/17/23 00:11 01/17/23 01:55 Temperature 98.3 F Temperature Source Temporal Pulse Rate Blood Pressure BP Systolic BP Diastolic Pulse Ox 97 01/17/23 01:55 01/17/23 01:55 01/17/23 01:55 Temperature 98.1 F Temperature Source Pulse Rate Blood Pressure 126/67 H BP Systolic 126 BP Diastolic 67 Pulse Ox 98 01/17/23 03:15 01/17/23 03:15 01/17/23 03:15 Temperature Temperature Source Temporal Pulse Rate 90 Blood Pressure 111/66 BP Systolic 111 BP Diastolic 66 Pulse Ox 01/17/23 03:15 01/17/23 04:12 01/17/23 04:12 Temperature 97.6 F L Temperature Source Pulse Rate 82 Blood Pressure 109/72 BP Systolic 109 BP Diastolic 72 Pulse Ox 01/17/23 04:12 01/17/23 04:12 Temperature 97.6 F L Temperature Source Temporal Pulse Rate Blood Pressure BP Systolic BP Diastolic Pulse Ox Weight Weight: 162 lb 0.636 oz Body Mass Index (BMI) 27.8 Physical Exam Const alert, oriented x3 and no apparent distress General Appearance: cooperative Orientation / Consciousness: awake HEENT normocephalic Neck full ROM Lymph Lymphatic: no lymphadenopathy noted Chest inspection of chest normal Resp normal respiratory effort and normal air movement Effort and Inspection: able to speak in complete sentences and symmetric chest movement GI soft to palpation and non-tender Inspection: gravid Palpation: soft; Negative for tender external exam normal Manual OB Exam: dilated 4, effaced 60 and station -2 Back/Spine normal to inspection Extremity normal to inspection and full ROM Skin no rashes or lesions noted Psych mental status grossly normal Appearance: grossly normal Speech: normal speech Labs Labs Labs: Blood Type O POSITIVE Antibody Screen NEGATIVE Hct 32.1 % (37-47) L Hgb 10.1 g/dL (12.0-15.0) L Syphilis Total Ab Non-reactive Rubella IgG Antibody Reactive (Nonreactive) Hep Bs Antigen Non-Reactive (Nonreactive) Chlamydia DNA (SARAH) Negative (Negative) Neisseria gonorrhoeae DNA (SARAH) Negative (Negative) HIV 1&2 Antibody Non-Reactive (Nonreactive) Glucose 1 Hr 50 gm 134 mg/dL (70-140) Assessment & Plan (1) SROM (spontaneous rupture of membranes): (2) Positive GBS test: COMMENT: PCN in labor (3) Supervision of normal first : COMMENT: PRR JENNYFER 01/12/23 boy Emiliano Travis (4) : QUALIFIERS: Weeks of gestation: 39 weeks Qualified Code(s): Z3A.39 - 39 weeks gestation of COMMENT: anatomy-nl, NIPT low risk, Neg Carrier testing afp delined. PLAN: Plan Patient presents IAL, plan expectant management for , pitocin/AROM PRN if needed. Pain management: plans epidural. GBS positive plan IV PCN. Management of any complications: none I have reviewed the [facility] and made any clinically relevant updates. Charges/Coding Multi Select Codes Urinary/Genital Urinary/Genital CPT Codes: No Charge 01/17/23 0459 <Electronically signed by Misa Bryan CNM> Cosigner Signature (if applicable): CC: FARRAH Bryan; Dr. Arianna Iyer MD~ Signed [place] Work Phone: 1([phone]) 615-767412-16-2022 NotePap Smear Specimen AdequacyDecember 2021 5:40pmComment.Satisfactory for evaluation. No endocervical component is identified.An endocervical component is not commonly seen in the patient.[facility] A#[id number]t on above: Satisfactory for evaluation. No endocervical component is identified.An endocervical component is not commonly seen in the patient.Evaluation note* Diagnosis Onset Date Resolution Status acute Supervision of normal first acute [place] Work Phone: Evaluation note* Diagnosis Onset Date Resolution Status acute Supervision of normal first acute acute Supervision of normal first acute [place] Work Phone: Evaluation note* Diagnosis Onset Date Resolution Status acute Supervision of normal first acute acute Supervision of normal first acute acute Supervision of normal first acute acute Supervision of normal first acute acute Supervision of normal first acute acute Supervision of normal first acute acute Supervision of normal first acute [place] Work Phone: Evaluation note* Diagnosis Onset Date Resolution Status Supervision of normal first resolved Supervision of normal first resolved Supervision of normal first resolved Supervision of normal first resolved Supervision of normal first resolved Supervision of normal first resolved Supervision of normal first resolved Supervision of normal first resolved Supervision of normal first resolved Supervision of normal first resolved Spontaneous vaginal delivery acute Supervision of normal first resolved [place] Work Phone: Evaluation note* Diagnosis Onset Date Resolution Status Supervision of normal first resolved Supervision of normal first resolved Supervision of normal first resolved Supervision of normal first resolved Supervision of normal first resolved Supervision of normal first resolved Supervision of normal first resolved Spontaneous vaginal delivery acute Supervision of normal first resolved nipple pain nonea ctive Care and examination of lactating mother noneactive nipple pain nonea ctive Care and examination of lactating mother noneactive care and examination [facility] Work Phone: Reason for referral (narrative)No reason for referral information availableWS[facility] Work Phone: Chief Complaint and Reason for Visit Chief Complaint NOB LMP 10/14 Reason for Visit Supervision of normal first Chief Complaint NOB LMP 10/14 est ob 13w Reason for Visit Supervision of normal first Supervision of normal first Chief Complaint 21wk ob est ob 25w est ob 28w est ob 30w est ob 32w est ob 34w est ob 36w Reason for Visit Supervision of normal first Supervision of normal first Supervision of normal first Supervision of normal first Supervision of normal first Supervision of normal first Supervision of normal first Chief Complaint est ob 25w est ob 28w est ob 30w est ob 32w est ob 34w est ob 36w est ob 37w est ob 37w est ob 38w est ob 39/40w VAGINAL DELIVERY R/O LABOR VAGINAL DELIVERY VAGINAL DELIVERY Reason for Visit Supervision of lauren l first Supervision of normal first Supervision of normal first Supervision of normal first Supervision of normal first Supervision of normal first Supervision of normal first Supervision of normal first Supervision of normal first Supervision of normal first Spontaneous vaginal delivery Supervision of normal first Chief Complaint est ob 32w est ob 34w est ob 36w est ob 37w est ob 37w est ob 38w est ob 39/40w VAGINAL DELIVERY R/O LABOR VAGINAL DELIVERY VAGINAL DELIVERY assessment assessment 6 WK PP, pt req for d/t CONSULT Reason for Visit Supervision of lauren l first Supervision of normal first Supervision of normal first Supervision of normal first Supervision of normal first Supervision of normal first Supervision of normal first Spontaneous vaginal delivery Supervision of normal first nipple pain Care and examination of lactating mother nipple pain Care and examination of lactating mother care and examination Chief Complaint Admit Date 27 WK OB/ GLUCOSE July 07, 2024 9 :06am 30 WK OB August 01, 2024 4 :07pm 32 WK OB August 14, 2024 3:18pm 34 WK OB August 28, 2024 11:2 1am 36 WK OB September 08, 2024 9:0 6am 37 WK OB September 15, 2024 11: 08am 38 WK OB September 22, 2024 11: 16am 39 WK OB September 29, 2024 1:44 pm 40 WK OB October 06, 2024 2:0 2pm LABOR/VAGINAL DELIVERY October 10, 2024 2:54am LABOR/VAGINAL DELIVERY October 10, 2024 8:00am LABOR/VAGINAL DELIVERY October 11, 2024 3:23am Reason for Visit Admit Date Choroid plexus cyst of fetus July 4:07pm GBS (group B streptococcus) UTI complica ting August 01, 2024 4:07pm August 01, 2024 4 :07pm Supervision of normal August 01, 2024 4:07pm Choroid plexus cyst of fetus August 142024 3:18pm GBS (group B streptococcus) UTI complica ting August 14, 2024 3:18pm August 14, 2024 3:18pm Supervision of normal August 14, 2024 3:18pm Choroid plexus cyst of fetus August 28, 2024 11:21am GBS (group B streptococcus) UTI complica ting August 28, 2024 11:21am August 28, 2024 11:2 1am Supervision of normal August 11:21am Choroid plexus cyst of fetus September 08, 2024 9:06am GBS (group B streptococcus) UTI complica ting September 08, 2024 9:06am September 08, 2024 9:0 6am Supervision of normal September 082024 9:06am Choroid plexus cyst of fetus September 15, 2024 11:08am GBS (group B streptococcus) UTI complica ting September 15, 2024 11:08am September 15, 2024 11: 08am Supervision of normal September 152024 11:08am Choroid plexus cyst of fetus September 22, 2024 11:16am GBS (group B streptococcus) UTI complica ting September 22, 2024 11:16am September 22, 2024 11: 16am Supervision of normal September 222024 11:16am Choroid plexus cyst of fetus September 29, 2024 1:44pm GBS (group B streptococcus) UTI complica ting September 29, 2024 1:44pm September 29, 2024 1:44 pm Supervision of normal September 1:44pm Choroid plexus cyst of fetus October 06, 2024 2:02pm GBS (group B streptococcus) UTI complica ting October 06, 2024 2:02pm October 06, 2024 2:0 2pm Supervision of normal October 062024 2:02pm Choroid plexus cyst of fetus October 10, 2024 2:54am GBS (group B streptococcus) UTI complica ting October 10, 2024 2:54am October 10, 2024 2:5 4am Supervision of normal October 102024 2:54am Vaginal delivery October 10, 2024 2:5 4am Chief Complaint Admit Date 32 WK OB August 14, 2024 3:18pm 34 WK OB August 28, 2024 11:2 1am 36 WK OB September 08, 2024 9:0 6am 37 WK OB September 15, 2024 11: 08am 38 WK OB September 22, 2024 11: 16am 39 WK OB September 29, 2024 1:44 pm 40 WK OB October 06, 2024 2:0 2pm LABOR/VAGINAL DELIVERY October 10, 2024 2:54am LABOR/VAGINAL DELIVERY October 10, 2024 8:00am LABOR/VAGINAL DELIVERY October 11, 2024 3:23am visit (obstetrics) November 25, 2024 10:33am Reason for Visit Admit Date August 14, 2024 3:18pm Supervision of normal August 14, 2024 3:18pm Choroid plexus cyst of fetus August 142024 3:18pm GBS (group B streptococcus) UTI complica ting August 14, 2024 3:18pm August 28, 2024 11:2 1am Supervision of normal August 11:21am Choroid plexus cyst of fetus August 28, 2024 11:21am GBS (group B streptococcus) UTI complica ting August 28, 2024 11:21am September 08, 2024 9:0 6am Supervision of normal September 082024 9:06am Choroid plexus cyst of fetus September 08, 2024 9:06am GBS (group B streptococcus) UTI complica ting September 08, 2024 9:06am September 15, 2024 11: 08am Supervision of normal September 152024 11:08am Choroid plexus cyst of fetus September 15, 2024 11:08am GBS (group B streptococcus) UTI complica ting September 15, 2024 11:08am September 22, 2024 11: 16am Supervision of normal September 222024 11:16am Choroid plexus cyst of fetus September 22, 2024 11:16am GBS (group B streptococcus) UTI complica ting September 22, 2024 11:16am September 29, 2024 1:44 pm Supervision of normal September 1:44pm Choroid plexus cyst of fetus September 29, 2024 1:44pm GBS (group B streptococcus) UTI complica ting September 29, 2024 1:44pm October 06, 2024 2:0 2pm Supervision of normal October 062024 2:02pm Choroid plexus cyst of fetus October 06, 2024 2:02pm GBS (group B streptococcus) UTI complica ting October 06, 2024 2:02pm Vaginal delivery October 10, 2024 2:5 4am October 10, 2024 2:5 4am Supervision of normal October 102024 2:54am Choroid plexus cyst of fetus October 10, 2024 2:54am GBS (group B streptococcus) UTI complica ting October 10, 2024 2:54am Vaginal lesion November 25, 2024 10:33 am Routine Follow-Up November 25, 10:33am Family History No Family History Records Found Relationship Condition Age at Onset Recorded Date/T supriya aunt Malignant neoplasm of breast 38 Malignant neoplasm of ovary 48 Advance Directives No Advanced Directives Records Found Advance Directive Response Recorded Date/ Time Name of Medical Power of Sterile Process Coordinator Travis Deonmanjinder January 17, 2023 12:55am Living Will Yes January 19, 2023 1:38pm Power of Sterile Process Coordinator Yes January 19 1:38pm Advance Directive Response Recorded Date/ Time Living Will Yes January 19, 2023 1:38pm Power of Sterile Process Coordinator Yes January 19 1:38pm Name of Medical Power of Sterile Process Coordinator Travis Arrieta January 17, 2023 12:55am Advance Directive Response Recorded Date/ Time Living Will Yes October 10, 2024 3:26am Do you have a Healthcare Power of Sterile Process Coordinator? Yes October 10, 2024 3:26am Name of Medical Power of Sterile Process Coordinator Travis Arrieta October 10, 2024 3:26am Summary Purpose Additional Source Comments Goals (unrecognized section and content) Goals may be documented in a n alternate sectionGoals may be documented in an alternate sectionGoals may be documented in an alternate section Care Teams (unrecognized sec tion and content) Team Status: Active Member Role Status Dates Dr. Arianna Iyer MD Primary Care Provider Active Team Status: Inactive Member Role Status Dates Dr. Arianna Iyer MD Primary Care Provider, Referring Provider Active Dr. Colette Berger DO Attending Provider Activ e Team Status: Inactive Member Role Status Dates Dr. Arianna Iyer MD Primary Care Provider Active Dr. Colette Berger DO Attending Provider Activ e Team Status: Inactive Member Role Status Dates Dr. Arianna Iyer MD Primary Care Provider Active Dr. Colette Berger DO Attending Provider, Refe rring Provider Active Team Status: Inactive Member Role Status Dates Dr. Arianna Iyer MD Primary Care Provider, Referring Provider Active Dr. Debora Milan MD Attending Provider Active Team Status: Inactive Member Role Status Dates Dr. Arianna Iyer MD Primary Care Provider, Referring Provider Active Ailyn Roper PASSENGER SERVICE SUPERVISOR, PASSENGER SERVICE SUPERVISOR-C Attending Provider Active Team Status: Inactive Member Role Status Dates Dr. Arianna Iyer MD Primary Care Provider, Referring Provider Active Pamela Cortez CNM Attending Provider Active Team Status: Active Member Role Status Dates Dr. Arianna Iyer MD Primary Care Provider Active Misa Bryan CNM Admit Provider, Att ending Provider, Referring Provider, Other Provider Active Team Status: Active Member Role Status Dates Dr. Arianna Iyre MD Primary Care Provider Active Misa Bryan CNM Admit Provider, Referring Provide r Active Dr. Colette Berger DO Other Provider Active Ailyn Roper PASSENGER SERVICE SUPERVISOR, PASSENGER SERVICE SUPERVISOR-C Attending Provider Active Team Status: Active Member Role Status Dates Dr. Arianna Iyer MD Primary Care Provider Active Misa Bryan CNM Admit Provider, Referring Provide r Active Dr. Colette Berger DO Other Provider Active Pamela Cortez CNM Attending Provider Active Team Status: Inactive Member Role Status Dates Dr. Arianna Iyer MD Primary Care Provider Active Misa Bryan CNM Admit Provider, Referring Provide r Active Dr. Colette Berger DO Attending Provider Activ e Team Status: Inactive Member Role Status Dates Dr. Arianna Iyer MD Primary Care Provider, Referring Provider Active Jerilyn Kumar PASSENGER SERVICE SUPERVISOR, PASSENGER SERVICE SUPERVISOR-C Attending Provider Active Team Status: Inactive Member Role Status Dates Dr. Arianna Iyer MD Primary Care Provider Active Ailyn Roper PASSENGER SERVICE SUPERVISOR, PASSENGER SERVICE SUPERVISOR-C Attending Provider, Referring Provider Active Team Status: Inactive Member Role Status Dates Dr. Arianna Iyer MD Primary Care Provider Active Start: July 07, 2024 End: July 07, 2024 Misa Bryan CNM Attending Provider Active S tart: July 07, 2024 End: July 07, 2024 Misa Bryan CNM Referring Provider Active S tart: July 07, 2024 End: July 07, 2024 Team Status: Inactive Member Role Status Dates Dr. Arianna Iyer MD Primary Care Provider Active Start: July 07, 2024 End: July 07, 2024 Dr. Arianna Iyer MD Referring Provider Active Start: July 07, 2024 End: July 07, 2024 Misa Bryan CNM Attending Provider Active S tart: July 07, 2024 End: July 07, 2024 Team Status: Inactive Member Role Status Dates Dr. Arianna Iyer MD Primary Care Provider Active Start: August 01, 2024 End: August 01, 2024 Dr. Arianna Iyer MD Referring Provider Active Start: August 01, 2024 End: August 01, 2024 Pamela Cortez CNM Attending Provider Active Start: August 01, 2024 End: August 01, 2024 Team Status: Inactive Member Role Status Dates Dr. Arianna Iyer MD Primary Care Provider Active Start: August 14, 2024 End: August 14, 2024 Dr. Arianna Iyer MD Referring Provider Active Start: August 14, 2024 End: August 14, 2024 Dr. Debora Milan MD Attending Provider Active Start: August 14, 2024 End: August 14, 2024 Team Status: Inactive Member Role Status Dates Dr. Arianna Iyer MD Primary Care Provider Active Start: August 28, 2024 End: August 28, 2024 Dr. Arianna Iyer MD Referring Provider Active Start: August 28, 2024 End: August 28, 2024 Dr. Colette Berger DO Attending Provider Activ e Start: August 28, 2024 End: August 28, 2024 Team Status: Inactive Member Role Status Dates Dr. Arianna Iyer MD Primary Care Provider Active Start: September 08, 2024 End: September 08, 2024 Dr. Arianna Iyer MD Referring Provider Active Start: September 08, 2024 End: September 08, 2024 Misa Bryan CNM Attending Provider Active S tart: September 08, 2024 End: September 08, 2024 Team Status: Inactive Member Role Status Dates Dr. Arianna Iyer MD Primary Care Provider Active Start: September 15, 2024 End: September 15, 2024 Dr. Arianna Iyer MD Referring Provider Active Start: September 15, 2024 End: September 15, 2024 Dr. Colette Berger DO Attending Provider Activ e Start: September 15, 2024 End: September 15, 2024 Team Status: Inactive Member Role Status Dates Dr. Arianna Iyer MD Primary Care Provider Active Start: September 22, 2024 End: September 22, 2024 Dr. Arianna Iyer MD Referring Provider Active Start: September 22, 2024 End: September 22, 2024 Misa Bryan CNM Attending Provider Active S tart: September 22, 2024 End: September 22, 2024 Team Status: Inactive Member Role Status Dates Dr. Arianna Iyer MD Primary Care Provider Active Start: September 29, 2024 End: September 29, 2024 Dr. Arianna Iyer MD Referring Provider Active Start: September 29, 2024 End: September 29, 2024 Dr. Colette Berger DO Attending Provider Activ e Start: September 29, 2024 End: September 29, 2024 Team Status: Inactive Member Role Status Dates Dr. Arianna Iyer MD Primary Care Provider Active Start: October 06, 2024 End: October 06, 2024 Dr. Arianna Iyer MD Referring Provider Active Start: October 06, 2024 End: October 06, 2024 Misa Bryan CNM Attending Provider Active S tart: October 06, 2024 End: October 06, 2024 Team Status: Inactive Member Role Status Dates Dr. Arianna Iyer MD Primary Care Provider Active Start: October 10, 2024 End: October 11, 2024 Dr. Colette Berger DO Other Provider Active Start: October 10, 2024 End: October 11, 2024 Misa Bryan CNM Admit Provider Active Start : October 10, 2024 End: October 11, 2024 Misa Bryan CNM Attending Provider Active S tart: October 10, 2024 End: October 11, 2024 Misa Bryan CNM Referring Provider Active S tart: October 10, 2024 End: October 11, 2024 Team Status: Active Member Role Status Dates Dr. Arianna Iyer MD Primary Care Provider Active Start: October 10, 2024 Dr. Colette Berger DO Other Provider Active Start: October 10, 2024 Misa Bryan CNM Admit Provider Active Start : October 10, 2024 Misa Bryan CNM Attending Provider Active S tart: October 10, 2024 Misa Bryan CNM Referring Provider Active S tart: October 10, 2024 Misa Bryan CNM Other Provider Active Start : October 10, 2024 Team Status: Active Member Role Status Dates Dr. Arianna Iyer MD Primary Care Provider Active Start: October 11, 2024 Dr. Colette Berger DO Other Provider Active Start: October 11, 2024 Misa Bryan CNM Admit Provider Active Start : October 11, 2024 Misa Bryan CNM Attending Provider Active S tart: October 11, 2024 Misa Bryan CNM Referring Provider Active S tart: October 11, 2024 Misa Bryan CNM Other Provider Active Start : October 11, 2024 Team Status: Inactive Member Role Status Dates Dr. Arianna Iyer MD Primary Care Provider Active Start: November 25, 2024 End: November 25, 2024 Dr. Arianna Iyer MD Referring Provider Active Start: November 25, 2024 End: November 25, 2024 Ailyn Roper PASSENGER SERVICE SUPERVISOR, PASSENGER SERVICE SUPERVISOR-C Attending Provider Active Start: November 25, 2024 End: November 25, 2024 Team Status: Inactive Member Role Status Dates Dr. Arianna Iyer MD Primary Care Provider Active Start: November 25, 2024 End: November 25, 2024 Ailyn Roper PASSENGER SERVICE SUPERVISOR, PASSENGER SERVICE SUPERVISOR-C Attending Provider Active Start: November 25, 2024 End: November 25, 2024 Ailyn Roper PASSENGER SERVICE SUPERVISOR, PASSENGER SERVICE SUPERVISOR-C Referring Provider Active Start: November 25, 2024 End: November 25, 2024 INFORMATION SOURCE (unrecogn ized section and content) DATE CREATED AUTHOR 05/22/2024 [facility] DATE CREATED AUTHOR AUTHOR'S ORGANIZ ATION 12/02/2024 [facility] FOR RECORDS PERTAINING TO PATIENTS WHO ARE OR HAVE BEEN ENROLLED IN A CHEMICAL DEPENDENCY/SUBSTANCEABUSE PROGRAM, SOME INFORMATION MAY BE OMITTED. This clinical summary was aggregated from multiple sources. Caution should be exercised in using it in the provision of clinical care. This summary normalizes information from multiple sources, and as a consequence, information in this document may materially change the coding, format and clinical context of patient data. In addition, data may be omitted in some cases. CLINICAL DECISIONS SHOULD BE BASED ON THE PRIMARY CLINICAL RECORDS. [employer] [facility]. provides no warranty or guarantee of the accuracy or completeness of information in this document.
== END | disposition home or self-care (01) ==
LOC: US 15:26
PROVIDERS: PCP Family Medicine; Referring Provider Nurse Practitioner Women's Health; Visit Provider Nurse Practitioner Women's Health
DX: N89.8 Other specified noninflammatory disorders of vagina (principal)
CPT/HCPCS: 76830; 76856

== ENCOUNTER → 2024-12-23 | Outpatient (CLI) | payer BC, SELFPAY ==
--- NOTE | 2024-12-23 11:30 | MRI_ITS ---
PROCEDURE: PELVIS W/WO CONTRAST, 12/23/2024 REASON FOR EXAM: VAGINAL LESION TECHNIQUE: Multisequence multiplanar MR of the pelvis was performed with and without IV contrast. IV contrast: 13 mL Clariscan COMPARISON: 12/02/2024 FINDINGS: Variable overall mild motion limitation. Diffusion not performed. Visualized bowel: Grossly unremarkable; not well evaluated by MRI. Lymph nodes: Unremarkable. Vasculature: Unremarkable. Peritoneum: Trace pelvic free fluid. Bladder: Underdistended and suboptimally evaluated, grossly unremarkable. Reproductive Organs: 4.4 x 3.4 x 1.6 cm simple appearing unilocular cystic lesion along the RIGHT lateral aspect of the far upper 3rd of the vagina/cervix appearing centered in the region of the RIGHT lateral posterior fornix, without solid or enhancing components identified, corresponding to the sonographic finding. This appears discrete from the RIGHT ovary which appears unremarkable. Vagina otherwise unremarkable. LEFT ovary unremarkable. Anteverted and retroflexed uterus with focal thickening of the junctional zone posteriorly along the body/fundus to 15 mm. Normal endometrial thickness. Body Wall: Unremarkable. Bones: Unremarkable. MRI/Pelvis W/WO Contrast IMPRESSION: 1. 4.4 cm simple appearing cystic lesion along the RIGHT lateral aspect of the far upper 3rd of the vagina/cervix centered in the region of the RIGHT lateral posterior fornix, corresponding to the sonographic finding. Given this location, a Anuj duct cyst is favored. 2. Focal thickening of the uterine junctional zone, finding which may be seen i n adenomyosis. Correlate with clinical evaluation. 3. Trace pelvic free fluid, potentially physiologic in this demographic. 4. Additional description as above. Reading Location: [id number]
== END | disposition home or self-care (01) ==
LOC: MRI 11:04
PROVIDERS: PCP Family Medicine; Referring Provider Advanced Practice Midwife; Visit Provider Advanced Practice Midwife
DX: N89.8 Other specified noninflammatory disorders of vagina (principal)
CPT/HCPCS: 72197; A9575

== ENCOUNTER 2025-02-24 09:01 | Day surgery (SDC) | payer BC, SELFPAY ==
[2025-02-24] VITALS (8 sets, daily range): BP systolic 78–103; BP diastolic 54–78; PULSE 50–70; RESP 14–18; TEMP 36.1–36.4; O2SAT 95–100; BMI 23.8
[2025-02-24] MEDS: Lactated Ringers 1,000 ML 15 ML IV ×2 (09:31→12:21)
[2025-02-24 09:49] LABS: Hematocrit 39.5 % (37-47); Hemoglobin 12.8 g/dL (12.0-15.0); Mean Corp Hgb Conc 32.4 g/dL (32-36); Mean Corpuscular Volume 87.4 fL (81-99); Mean Platelet Vol. 9.8 fl (6.2-12.0); Platelet Count 242 K/mm3 (150-450); RBC Distribution Width CV 12.6 % (11.6-14.6); RBC Distribution Width SD 39.8 fl (35.1-43.9); Red Blood Count 4.52 M/mm3 (4.2-5.4); White Blood Count 5.9 K/mm3 (4.4-11.0)
[2025-02-24 09:55] LABS: Internal QC Validated? YES +Cl - CLEAR BKGD; Pregnancy, Urine Negative Negative; Record Kit Lot#,Urine Preg 0000962302
--- NOTE | 2025-02-24 10:17 | PCM.PRE.AN2 ---
ASA Classification* ASA Classification ASA Classification: 1 Assessment & Plan Anesthesia* Anesthesia Assessment Anesthesia Assessment: Discussed sedation and/or anesthesia options, risks, benefits, and alternatives with patient/parents/legal guardian/POA. Questions invited. The patient/parents/legal guardian/POA seems to understand and agrees to proceed with anesthesia plan. Reviewed the physical assessment, medical history, allergy history and patient home medications list prior to surgery/procedure/anesthetic and documented any changes. Performed airway and anesthesia risk assessments. Anesthesia Type Anesthesia Type: MAC History Source History Obtained from:: Patient and Chart Anesthesia Focused Assessment* Temperature: 97.4 F Pulse Rate: 70 Blood Pressure: 103/78 Respiratory Rate: 16 Pulse Ox: 100 Oxygen Delivery Method: Room Air Airway Assessment Mouth opens: >3 cm Mallampati Score: I Teeth Condition: Intact Neck Range of motion (ROM): Full ROM Labs Anesthesia Preop lab: CBC WBC 5.9 K/mm3 (4.4-11.0) 02/24/25 09:30 02/24/25 RBC 4.52 M/mm3 (4.2-5.4) 02/24/25 09:30 02/24/25 Hgb 12.8 g/dL (12.0-15.0) 02/24/25 09:30 02/24/25 Hct 39.5 % (37-47) 02/24/25 09:30 02/24/25 Plt Count 242 K/mm3 (150-450) 02/24/25 09:30 02/24/25 CHEMISTRY COAG Urine Test Negative Negative 02/24/25 09:19 02/24/25 Pre-Assessment Diagnosis/Proposed Procedure Planned Operative Procedure(s): EXCISION PROCEDURE OF VAGINA REMOVAL CYST Anesthesia History Anesthesia History - web applications administrator: Anesthesia History - web applications administrator Hx Hospitalization No 02/12/25 12:08 Any Problems With Anesthesia No 02/12/25 12:08 Cholinesterase deficiency No 02/12/25 12:08 You/Your Family Experience No 02/12/25 12:08 fever (hyperthermia) with Relationship Recent Exposure to Contagious No 02/24/25 09:27 Disease Does patient have nerve No 02/12/25 12:08 stimulator Patient instructed to have device shut off --Does patient have Pacemaker No 02/24/25 09:27 or ICD? When Was Last Pacemaker Check QUESTION #4 FULL TEXT: You/Your Family Experience fever (hyperthermia) with Anesthesia Last Oral Intake Last Oral intake: Last Oral Intake NPO since 20:00 02/24/25 09:27 Meds taken in AM with sips of No 02/24/25 09:27 water? Meds patient instructed to take am of surgery PONV PONV - web applications administrator: PONV - web applications administrator Female Yes 02/12/25 12:08 HX of Motion Sickness Yes 02/12/25 12:08 HX of N/V After Surgery No 02/12/25 12:08 Non-Smoker Yes 02/12/25 12:08 Duration of Surgery greater No 02/12/25 12:08 than 60 minutes Number of Risk Factors 3 02/12/25 12:08 PONV Score Moderate Risk 02/12/25 12:08 Height & Weight Height & Weight: Anesthesia: Height & Weight Height 5 ft 4 in 02/24/25 09:27 Weight: 63.1 kg 02/24/25 09:27 Body Mass Index (BMI) 23.8 02/24/25 09:27 Respiratory Assessment Respiratory Assessment - web applications administrator: Respiratory Tract Infection Hx - web applications administrator Hx Respiratory Tract Infection No 02/12/25 12:08 STOP Sleep Apnea STOP Sleep Apnea - web applications administrator: STOP Sleep Apnea - web applications administrator Hx Hypertension No 02/12/25 12:08 Hx Sleep Apnea No 02/12/25 12:08 CPAP BIPAP Do you snore loudly (louder No 02/12/25 12:08 than talking or can be heard Do you often feel tired/ No 02/12/25 12:08 fatigued/ sleepy during daytime? Has anyone observed you stop No 02/12/25 12:08 breathing during sleep? STOP Results Negative 02/12/25 12:08 QUESTION #5 FULL TEXT : Do you snore loudly (louder than talking or can be heard through closed doors)? 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 Specify any problems Hx of Preganancy in last 3 No 02/12/25 12:08 Months Nurse Filling Out Transfusion DSCHRIBER 02/12/25 12:08 & Questions: Date: 02/12/25 02/12/25 12:08 Time: 12:09 02/12/25 12:08 Patient unable to answer at this time (ie. confused, unrespo /Reproduction History /Reproductive History - web applications administrator: /Reproductive Hx- web applications administrator Hx Now No 02/12/25 12:08 Gestational Age (in weeks): EDC: Hx Hx Para Hx Section SAB Yes 02/12/25 12:08 Active Medications Active Medications: Current Medications Generic Name Dose Route Start Last Admin Trade Name Freq PRN Reason Stop Dose Admin Cefotetan Disodium 2 gm/ 100 mls @ 200 mls/hr 02/24/25 10:40 Sodium Chloride IV 02/24/25 11:09 INTRAOP ONE Lactated Ringer's 1,000 mls @ 15 mls/hr 02/24/25 09:15 02/24/25 09:31 IV 15 mls/hr .Q48H MIRLANDE Administration PFSH Medical History Mother currently breast-feeding Alcohol use Restless legs Migraine headache Non-smoker Home Medications ?Medication ?Instructions ?Recorded ?Last Taken ?Type multivitamin no.47-iron fum 27 1 cap PO DAILY 06/01/22 01/01/23 History mg-folate no.1 1 mg-dha 300 mg capsule (PNV-DHA) cholecalciferol (vitamin D3) 125 125 mcg PO DAILY 02/12/25 Unknown History mcg (5,000 unit) tablet (Vitamin D3) cod liver oil 1 cap PO DAILY 02/12/25 Unknown History cyanocobalamin-liver extract tablet 1 tab PO DAILY 02/12/25 Unknown History magnesium 250 mg tablet 250 mg PO DAILY 02/12/25 Unknown History Allergy/AdvReac Type Severity Reaction Status Date / Time No Known Allergies Allergy Verified 02/24/25 09:26 Family History Aunt Breast cancer, Onset Age: 40 Maternal Ovarian cancer, Onset Age: 50 Paternal no surgical history Social History adopted: No household members: spouse housing: house number of children: 1 current occupational status: employed 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 Back to pre weight. 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
--- NOTE | 2025-02-24 10:35 | HP.PCM_ITS ---
History and Physical [facility] [address], [address] [place] [address] OFFICE VISIT Date of Service: 02/19/25 MR#: [id number] Acct: [id number] Name: MAYELA HUDDLESTON Rep #: [id number] : 2000 Provider: Dr. Debora Levy MD Age/Sex: 24/F [place] [facility] [place]: Signed Intake Vital Signs 11/25/2509:40 02/19/2510:25 Height 5 ft 4 in 5 ft 4 in Weight: 139 lb 2 oz BMI 23.8 BP 93/61 Intake Visit Reasons: Alvarez Ductal Cyst Horse Rancher Required: No Is patient in pain?: No Allergies No Known Allergies Allergy (Verified 02/19/25 10:28) Medications ?Medication ?Instructions ?Recorded ?Confirmed ?Type multivitamin no.47-iron fum 27 1 cap PO DAILY 06/01/22 02/19/25 History mg-folate no.1 1 mg-dha 300 mg capsule (PNV-DHA) cholecalciferol (vitamin D3) 125 125 mcg PO DAILY 02/12/25 02/19/25 Histo ry mcg (5,000 unit) tablet (Vitamin D3) cod liver oil 1 cap PO DAILY 02/12/25 02/19/25 History cyanocobalamin-liver extract tablet 1 tab PO DAILY 02/12/25 02/19/25 History magnesium 250 mg tablet 250 mg PO DAILY 02/12/25 02/19/25 Histor y Is last menstrual period known: No Post menopausal: No Patient : No PFSH Medical History Mother currently breast-feeding Alcohol use Restless legs Migraine headache Non-smoker Surgical History Hx of surgical procedure Family History Aunt Breast cancer, Onset Age: 40 Maternal Ovarian cancer, Onset Age: 50 Paternal Social History adopted: No household members: spouse housing: house number of children: 1 current occupational status: employed 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 Back to pre weight. 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 Female Reproductive History Menopausal Symptoms: No night sweats History 2 Elective abortions Hx Para 2 Spontaneous abortions Hx # Term Pregnancies 2 Ectopic pregnancies Hx # Pregnancies Multiple births # of living children 2 Past Pregnancies Del. Date Name GA/Weeks Outcome Route Bth Weight Infant Gen Labor Lgth Anesthesia Del Locatn Provider FOB 01/17/23 Emiliano 40 live - full term 8.5# Male epidural [facility] Colette Gonzalez 10/10/24 Sharon 40 live - full term 7lbs 10oz Female epidural [facility] KW Travis Delivery Date: 01/17/23 Last Updated by: Lisa Maya see problem list for complications. Delivery Date: 10/10/24 Last Updated by: Ivy Medrano RN See problem list for complications, and KW IAL 40.6 girl ROS Const Constitutional: Denies fatigue, night sweats, weight gain or weight loss ENT ENT: Reports system reviewed and no additional complaints, except as documented Cardio Card: Denies chest pain Resp Resp: Denies cough or dyspnea GI GI: Reports as per HPI; Denies abdominal pain, constipation, nausea or vomiting : Denies nipple discharge, urinary frequency, urinary incontinence, urinary hesitancy, urinary urgency, vaginal discharge, vaginal dryness, vaginal odor or vaginal pruritus Musc Musc: Denies arthralgias, back pain or muscle weakness Skin Skin/Breast: Denies alopecia, change in hair, dry skin, breast mass, breast pain, breast skin changes or nipple discharge Neuro Neuro: Reports system reviewed and no additional complaints, except as documented Psych Psych: Reports system reviewed and no additional complaints, except as documented Endo Endo: Denies cold intolerance, excessive sweating, heat intolerance or polydipsia Thompson/Lymph Hematologic/Lymphatic: Denies easy bleeding, Denies easy bruising and Denies lymphadenopathy Exam Const General: cooperative, no acute distress and well developed Nutritional Appearance: average body habitus Orientation: oriented x3 Neck Neck: normal visual inspection Thyroid: thyroid normal Resp Effort & Inspection: normal respiratory effort GI Palpation: soft, no masses and nontender General: bladder normal to palpation External Female Exam: normal external appearance and normal appearance of the urethra Urethra: normal appearance of the urethra Speculum Exam - Vagina: normal vaginal discharge and lesion (5-6cm right lateral cyst appearing lesion, noted extending from vag wall) Speculum Exam - Cervix: normal appearance of the cervix (difficult to visualize due to vaginal cyst) Bimanual Exam- Vagina & Uterus: uterine size normal, bladder normal to palpation, uterine shape normal, uterine mobility normal, non-tender and other ( vaginal cyst right wall) Bimanual Exam- Adnexa, other: no masses, normal and non-tender Pelvic Support: normal Other: Coding Level of Care Code No Charge Diagnoses Vaginal lesion N89.8 Assessment and Plan Assessment and Plan (1) Vaginal lesion: Status: Acute Comment: possible germaine duct cyst. right vaginal wall, 5-6cm in size Plan After discussing the patient's diagnosis and treatment plan options, patient wishes to proceed with surgical management. I have discussed with the patient the risks, benefits, and alternatives of the procedure which include but are not limited to risks of anesthesia, bleeding, infection, possible damage to bowel, bladder, or surrounding vasculature which could lead to additional surgery to evaluate any complications. Patient agrees to procedure and wishes to proceed. ACOG/uptodate references given for additional information regarding procedure. UPDATE- I have seen the patient and performed any clinically relevant updates to the history and physical exam. Debora Levy MD
--- NOTE | 2025-02-24 10:40 | CYST_PTH ---
PATIENT: MAYELA HUDDLESTON [place] [facility] [place][id number] AGE/SX: 24/F ROOM: RE02/24/[address]: Dr. Debora Levy MD : 2000 BED: DIS: 02/24/2025 SPEC #: [id number] RECD: 02/24/25 13:56 STATUS: EUGENE REQ #: [id number] LUNA: 02/24/25 10:[address]: Debora Levy DEPT: SURGICAL PATHOLOGY RECD BY: Zach Lay ENTERED: 02/24/25 14:21 SP TYPE: Cyst OTHR DR: Dr. Kaylee Iyer MD Tissues: A - CYST Procedures: Surgery Specimen Level III Comments: Spoke to [place]-nurse per Dr. Mccollum to give verbal result ~14:50 on 03/06/2025. HEADER OPERATION: Anuj's cyst duct marsupialization PRE-OP DIAGNOSIS: Vaginal lesion TISSUE SUBMITTED: A- vaginal cyst wall MICROSCOPIC DIAGNOSIS A. Vagina, Anuj's cyst duct, marsupialization: Benign squamous mucosa with cyst lined by benign columnar epithelium. COMMENT The diagnosis was called to Dr Levy's office by Zach Lay, 03/06/25. MICROSCOPIC DESCRIPTION Slides are reviewed. GROSS DESCRIPTION A. Received in formalin labeled with the patient's name and date of . Designated as vaginal cyst wall are 2 irregular abbott-pink to red rubbery and cauterized tissue fragments, 1.4 x 0.9 x 0.2 cm and 1.7 x 1.3 x 0.3 cm. The specimen is serially sectioned and entirely submitted in 2 cassettes. CA 02/24/2025 CPT:93688
[2025-02-24] MEDS: Midazolam 2 MG/2 ML Syringe IV (11:20)
[2025-02-24] MEDS: Lactated Ringers 500 ML IV (11:20)
[2025-02-24] MEDS: Bupiv/Epi 0.25% 30 ML Vial (11:51)
[2025-02-24] MEDS: Ketorolac 30 MG/ML Syringe IV (12:07)
[2025-02-24] MEDS: fentaNYL 100 MCG/2 ML Ampul IV (12:08)
--- NOTE | 2025-02-24 12:14 | PCM.POST.ANE ---
Anesthesia: Postop Eval I Current Vital Signs Temperature: 97.5 F Pulse Rate: 63 Blood Pressure: 82/54 Respiratory Rate: 18 Pulse Ox: 96 Assessment Airway patent: Yes Spontaneous unlabored respirations: Yes nausea: No Vomiting: No Anesthesia Complication: No Fluid Hydration Crystalloid volume administer (ml): 1,000 Total IV fluid infused: 1,000 Progress Note Anesthesia document: Postop Eval 1 completed: Yes
--- NOTE | 2025-02-24 12:16 | PCM.OPRPT ---
Problems Associated Problem List Diagnoses (1) Vaginal lesion: Procedures Urinary/Genital [id number]: Other Procedure See Report ([id number]) Operative Report (Standard) Operative Information Date of Procedure: 02/24/25 Pre-Operative Diagnosis: right lateral posterior vaginal wall cyst suspect gartners duct cyst Post-Operative Diagnosis: same Surgery/Procedure Performed: germaine's duct cyst marsupilization greenskeeper supervisor: Yes Cnc Service Technician: Benjamin Bonds Tasks completed by statistical assistant: Retracting Type of Anesthesia: General and Local RN Documented Start/Stop Times: Operation Date: 02/24/25 10:40 Case Time Into Pre-Op 02/24/25 09:03 Out of Pre-Op 02/24/25 11:16 Anesthesia Start 02/24/25 11:20 Into Room 02/24/25 11:20 Procedure Start 02/24/25 11:37 Procedure End 02/24/25 12:06 Anesthesia End 02/24/25 12:11 Out of Room 02/24/25 12:11 Into Recovery 02/24/25 12:13 Into Phase II Recovery 02/24/25 12:33 Out of Recovery 02/24/25 12:33 Out of Phase II 02/24/25 13:24 Procedure Start Time: 11:37 Procedure Stop Time: 12:06 Select all DRAINS/GRAFTS/IMPLANTS that apply: None Estimated Blood Loss: 50 Specimen collected: Yes Description of specimen(s) removed: cyst wall Description of surgery: Patient was taken to the operating room and placed under general anesthesia in the dorsolithotomy position. She was prepped and draped in the normal sterile fashion. Bladder drained of clear urine. Vagina inspected and a 4 x 4 centimeter fluctuant cystic lesion seen at the lateral posterior right apex of the vagina abutting against the cervix and cul-de-sac lateral portion of the vagina. Incision was made across the top of the cystic area and the wall mapped out which was felt to be deep and going laterally and also posteriorly distorting into the right area of the uterosacral ligament. The top part of the cyst was unroofed and removed and the base evaluated to have removed as much of the cyst wall as possible to evaluate and reduce the risk of dyspareunia and recurrence afterwards. 3 different running locking sutures were done around the periphery to marsupialize the cyst wall to the vaginal mucosa to obtain hemostasis and keep the cyst open so it would heal by secondary intention. No compromise or perforation into the cul-de-sac was noted. Hemoblast placed over the area to ensure hemostasis. Hemostasis was noted. Patient tolerated the procedure well and was awoken and taken to recovery in stable condition. Surgical Findings: 4x4cm lateral posterior apical vaginal wall cyst suspect germaine's duct cyst Complications Complications: No
--- NOTE | 2025-02-24 12:17 | DCINST_ITS ---
Discharge Instructions DC O2, CPAP, BIPAP needs Home O2 Discharge instructions: No Dressing / Incision Discharge Activity: Return to Normal Activity, May Shower and May Take a Tub Bath (after 2 week) May resume sexual activity in: 4-6 weeks Weight Bearing Status: Weight bearing as tolerated Lifting Restrictions: none Dressing / Incision Call your doctor if you observe: Fever of 101 or Higher, Using more than 1 pad per hour, Shortness of breath and Uncontrolled pain Follow Up Care Please Follow Up With: Debora Levy MD When: Call [phone] to schedule appointment. Test Results: Test results from this visit will be discussed in further detail at your follow- up appointment, if applicable. Discharge Plan Admission Attending Provider: Debora Levy Primary Care Provider: Kaylee Iyer Instructions Print Language: New Zealander Discharge Orders/Prescriptions Prescriptions: No Action PNV-DHA 27 mg iron-1 mg -300 mg capsule 1 cap PO DAILY cod liver oil Capsule 1 cap PO DAILY cyanocobalamin-liver extract Tablet 1 tab PO DAILY cholecalciferol (vitamin D3) [Vitamin D3] 125 mcg (5,000 unit) tablet 125 mcg PO DAILY magnesium 250 mg tablet 250 mg PO DAILY Referrals / Follow Up: Kaylee Iyer MD [Primary Care Provider] - Disposition Disposition (needs filled in before D/C Order can be placed): Home, Self Care
--- NOTE | 2025-02-24 14:38 | POSTOPAN2_ITS ---
Anesthesia Postop Eval I Sum Postop Eval Completion status Anesthesia document: Postop Eval 1 completed: Yes Anesthesia Postop Eval I Summary Anesthesia Postop Eval I Summary: Anesthesia Postop Eval I: Assessment Summary Airway patent Yes 02/24/25 12:14 HOME TEACHING GRADES 7 AND 8 [email or web address] Spontaneous unlabored Yes 02/24/25 12:14 HOME TEACHING GRADES 7 AND 8 [email or web address] respirations Mental status nausea No 02/24/25 12:14 HOME TEACHING GRADES 7 AND 8 [email or web address].CSIR Vomiting No 02/24/25 12:14 HOME TEACHING GRADES 7 AND 8 [email or web address] Anesthesia Postop Eval I: Fluid Summary Crystalloid volume administer 1,000 02/24/25 12:14 HOME TEACHING GRADES 7 AND 8 [email or web address].CSIR (ml) Colloids volume administered ( ml) Blood Product volume administered (ml) Total IV fluid infused 1,000 02/24/25 12:14 HOME TEACHING GRADES 7 AND 8 [email or web address] Anesthesia Postop Eval I: Summary Notes Anesthesia Complication No 02/24/25 12:14 HOME TEACHING GRADES 7 AND 8 [email or web address].[email or web address] Anesthesia Complication Comment: Post-operative progress note Anesthesia: Postop Eval II Evaluation Mental status: Awake Pain Level: 2 nausea: No Vomiting: No
--- NOTE | 2025-02-24 14:38 | PCM.POSTANE2 ---
Anesthesia Postop Eval I Sum Postop Eval Completion status Anesthesia document: Postop Eval 1 completed: Yes Anesthesia Postop Eval I Summary Anesthesia Postop Eval I Summary: Anesthesia Postop Eval I: Assessment Summary Airway patent Yes 02/24/25 12:14 FORWARDER OPERATOR.[email or web address] Spontaneous unlabored Yes 02/24/25 12:14 FORWARDER OPERATOR.CSIR respirations Mental status nausea No 02/24/25 12:14 FORWARDER OPERATOR.CSIR Vomiting No 02/24/25 12:14 FORWARDER OPERATOR.CSIR Anesthesia Postop Eval I: Fluid Summary Crystalloid volume administer 1,000 02/24/25 12:14 FORWARDER OPERATOR.CSIR (ml) Colloids volume administered ( ml) Blood Product volume administered (ml) Total IV fluid infused 1,000 02/24/25 12:14 FORWARDER OPERATOR.CSIR Anesthesia Postop Eval I: Summary Notes Anesthesia Complication No 02/24/25 12:14 FORWARDER OPERATOR.CSIR Anesthesia Complication Comment: Post-operative progress note Anesthesia: Postop Eval II Evaluation Mental status: Awake Pain Level: 2 nausea: No Vomiting: No
== END 2025-02-24 13:24 | disposition home or self-care (01) ==
LOC: SDC 09:01 → AC 09:03
PROVIDERS: PCP Family Medicine; Referring Provider Obstetrics & Gynecology; Visit Provider Obstetrics & Gynecology
PROC: (CPT 56740; principal; 2025-02-24 10:25)
DX: N89.8 Other specified noninflammatory disorders of vagina (principal)
CPT/HCPCS: 57135; 00940; 81025; 85027; 86850; 86900; 86901; 88304; J2405